=== PATIENT | male | born 1950 | race Caucasian/White ===

== ENCOUNTER → 2024-05-25 13:54 | Outpatient (REF) | payer MEDICARE, SELFPAY | LOC: RAD 13:54 | PROVIDERS: ATTENDING PHYSICIAN Podiatrist Foot & Ankle Surgery | DX: I70.293 Other atherosclerosis of native arteries of extremities, bilateral legs (principal) | CPT/HCPCS: 93922; 93925 ==

== ENCOUNTER 2024-10-17 09:22 | Day surgery (SDC) | payer MEDICARE, SELFPAY ==
[2024-10-17] VITALS (17 sets, daily range): BP systolic 114–157; BP diastolic 29–112; BMI 34.3
[2024-10-17 09:54] LABS: Hematocrit 46.4 % (39.0-52.0); Hemoglobin 15.4 g/dL (13.0-18.0); Mean Corp Hgb Conc. 33.2 g/dL (33.0-37.0); Mean Corpuscular Hgb 30.1 pg (27.0-31.0); Mean Corpuscular Volume 90.6 fL (80.0-94.0); Mean Platelet Volume 9.7 fL (7.4-10.4); Platelet Count 242 10^3/uL (130-400); Red Blood Cell Count 5.12 10^6/uL (4.70-6.10); Red Cell Dist. Width 12.7 % (11.5-14.5); White Blood Cell Count 11.4 10^3/uL (4.8-10.8)
[2024-10-17 10:01] LABS: INR 0.96; PT 13.3 Sec (11.4-14.6)
[2024-10-17 10:02] LABS: APTT 26.3 Sec (23.4-35.0)
[2024-10-17 10:08] LABS: Blood Urea Nitrogen 15 mg/dl (9-20); Calcium 9.3 mg/dl (8.4-10.2); Carbon Dioxide 29 mmol/L (22-30); Chloride 96 mmol/L (98-107); Estimated Creatinine Clearance 69 ml/min; Glucose 234 mg/dl (70-99); Potassium 4.9 mmol/L (3.5-5.1); Sodium 136 mmol/L (135-145); eGFR > 60.00
[2024-10-17 10:32] LABS: Glucose - Point of Care 216 mg/dl (70-99)
[2024-10-17] MEDS: NSS 500 IV ×2 (10:40→15:28)
--- NOTE | 2024-10-17 11:30 | W.SUR.PREOP ---
Pre-Operative Surgical Note
-
I have examined this patient prior to the performance of the scheduled procedure.
The patient's condition is unchanged from the time of the current History and
Physical and the patient is able to undergo the scheduled procedure.
--- NOTE | 2024-10-17 12:43 | W.SUR.POST ---
Surgical Immediate Post Op
Note
Pre Op Diagnosis: PAD
Post Op Diagnosis: Same
Procedure Performed: Left lower extremity diagnostic arteriogram
Primary Surgeon: Ranjit
Anesthesia: Local and sedation
Estimated Blood Loss: Less than 2 cc
Fluids: See anesthesia flowsheet
Drains/Shunts: None
Specimens/Cultures: None
Doppler/Duplex/Angio (Y/N): Y
Complications: None
Operative Findings: Distal small vessel disease
[2024-10-17 12:59] LABS: Glucose - Point of Care 168 mg/dl (70-99)
--- NOTE | 2024-10-17 13:35 | OR.RPT ---
Operative Report
Operative Report
PROCEDURE DATE: 10/17/2024
Preoperative diagnosis: Chronic limb threatening ischemia with tissue loss left first toe.
Postoperative diagnosis: Same
Procedure:
1. Duplex assisted right common femoral artery cannulation.
2. Aortogram and pelvic angiogram.
3. Left lower extremity arteriogram with third order vessel catheterization of left superficial femoral artery via right common femoral artery puncture.
4. Right femoral angiogram with Grijalva Perclose percutaneous suture closure right common femoral artery.
5. Supervision and interpretation.
Surgeon: Ranjit
Steel Post Installer: None
Complications: None
Anesthesia: Local, sedation
Fluoroscopy:
2.1 min
23 mGy
5.24 Gy.cm2
Indications for procedure:
Left first toe dorsum ulcer nonhealing. Known history of PAD. Brought for angiography. Risk/benefits/alternatives all fully discussed. Patient understood all wished proceed.
Description of procedure:
Patient was identified, brought to the operating room. Placed on the table in the supine position. After the adequate administration of anesthesia, the patient was prepped and draped in the standard surgical fashion. A standard preoperative
timeout was undertaken and everybody was in agreement with the plan.
The right common femoral artery was accessed with a micropuncture kit under direct duplex ultrasound guidance. A 5 Afghan sheath was then advanced over a 0.035 inch wire, and a ansari's hook catheter was advanced into the abdominal aorta.
Aortogram and pelvic angiogram was obtained. Findings as follows:
Infrarenal aorta: Patent with no significant stenosis
Right common iliac artery: Patent with no significant stenosis
Right external iliac artery:Patent with no significant stenosis
Left common iliac artery:Patent with no significant stenosis
Left external iliac artery:Patent with no significant stenosis
Using a floppy angled hydrophilic wire, the left common femoral artery was cannulated and the catheter was advanced. Left lower extremity arteriogram was obtained. Findings as follows:
Common femoral artery: Patent with no significant stenosis.
Profunda femoris artery: Patent with no significant stenosis.
Superficial femoral artery: Patent with no significant stenosis throughout its course, though eccentric plaque noted throughout (leadpipe like plaque).\\
At this point the left superficial femoral artery was cannulated with a flopping of hydrophilic wire and catheter advanced over the wire. Completion of the left lower extremity arteriogram was then obtained. Findings as follows:
Popliteal artery: Patent with eccentric plaque, but no significant stenosis identified.
Anterior tibial artery: Patent with no significant stenosis. Diffuse calcified plaque disease more distally resulting in smaller size of the artery but no definitive focal stenosis. The artery then occluded once across the ankle onto the foot.
Small collaterals could be seen but no filling into the arch.
Tibial peroneal trunk: Patent with no significant stenosis.
Peroneal artery: Patent for about 2 to 3 cm and then slowly tapering and diminutive down to the level of the ankle.
Posterior tibial artery: Patent with no significant stenosis though heavy calcified plaque in the mid to distal third with no formal stenosis identified but tortuosity. Once on the foot, there is no filling of the plantar arteries the artery
occluded essentially onto the foot. Small collaterals are seen to fill. No filling of the arch of the foot could be seen.
At this point, I felt that there is no endovascular option here for the small vessel disease. Patient will be managed conservatively with close follow-up. If fails to heal, consideration for transcatheter arterialization of the deep veins
(LimFlow) may be entertained using the peroneal artery as the inflow source. At this point wires and catheters were withdrawn. Right femoral angiogram was performed through the sheath that demonstrated good puncture in the right common femoral
artery. An [employer] percutaneous suture delivery device was then inserted over the wire after exchanging out the 5 Afghan sheath and the suture was deployed in the standard fashion. Manual pressure was also gently applied. Hemostasis was
fully achieved.
The patient tolerated procedure well.
== END 2024-10-17 16:01 | disposition home or self-care (01) ==
LOC: CATH 09:22
PROVIDERS: ATTENDING PHYSICIAN Surgery Vascular Surgery; PRIMARYCARE PHYSICIAN Family Medicine
DX: I70.245 Atherosclerosis of native arteries of left leg with ulceration of other part of foot (principal); L97.529 Non-pressure chronic ulcer of other part of left foot with unspecified severity; Z79.82 Long term (current) use of aspirin; Z79.02 Long term (current) use of antithrombotics/antiplatelets; Z79.4 Long term (current) use of insulin; Z79.899 Other long term (current) drug therapy; Z79.84 Long term (current) use of oral hypoglycemic drugs; E11.9 Type 2 diabetes mellitus without complications; I10 Essential (primary) hypertension; Z87.891 Personal history of nicotine dependence
CPT/HCPCS: 36247; 75716; 75625; 80048; 82962; 85027; 85610; 85730; 86850; 86900; 86901; 93005; C1760; C1769; C1894; Q9967

== ENCOUNTER → 2024-11-08 11:06 | Outpatient (REF) | payer MEDICARE, SELFPAY | LOC: RAD 11:06 | PROVIDERS: ATTENDING PHYSICIAN Physician Assistant; FAMILY PHYSICIAN Family Medicine; REFERRING PHYSICIAN Surgery Vascular Surgery | DX: Z01.810 Encounter for preprocedural cardiovascular examination (principal); Z01.818 Encounter for other preprocedural examination; I73.9 Peripheral vascular disease, unspecified | CPT/HCPCS: 93922; 93926; 93971 ==

== ENCOUNTER 2025-05-07 18:43 | Inpatient (IN) | payer MEDICARE, SELFPAY ==
[2025-05-07 14:18] VITALS: BP 122/70
[2025-05-07 14:48] LABS: Hematocrit 40.6 % (39.0-52.0); Hemoglobin 13.9 g/dL (13.0-18.0); Mean Corp Hgb Conc. 34.2 g/dL (33.0-37.0); Mean Corpuscular Volume 89.0 fL (80.0-94.0); Platelet Count 379 10^3/uL (130-400); Red Cell Dist. Width 13.0 % (11.5-14.5)
[2025-05-07 14:53] LABS: ALT (SGPT) 31 U/L (0-50); AST (SGOT) 30 U/L (17-59); Albumin 4.1 g/dl (3.5-5.0); Alkaline Phosphatase 127 U/L (38-126); Blood Urea Nitrogen 24 mg/dl (9-20); Calcium 8.8 mg/dl (8.4-10.2); Carbon Dioxide 25 mmol/L (22-30); Chloride 94 mmol/L (98-107); Glucose 200 mg/dl (70-99); Potassium 4.1 mmol/L (3.5-5.1); Sodium 131 mmol/L (135-145); Total Protein 8.0 g/dl (6.3-8.2); eGFR > 60.00
[2025-05-07 15:14] LABS: Nucleated Red Blood Cells % 0 % (-)
--- NOTE | 2025-05-07 16:14 | ED.GENMED ---
History of Present Illness
General
Chief Complaint: Skin Problem
Source: patient
Exam Limitations: none
Time Seen by Provider: 05/07/25 16:11
Nursing documentation reviewed up to this point in time: agreed with
History of Present Illness
History of Present Illness:
Patient is a 74-year-old male with past medical history of vascular disease, right lower extremity amputation, hypertension peripheral arterial disease, diabetes, recent ME ([facility] hosp one month ago) on Eliquis and Plavix presents to the ER for
evaluation. Patient was sent by Dr. Lainez(plan for admission, IV antibiotics podiatry consult and OR for limb flow procedure
Patient reports blood blister to his left great toe for several months however has had recent increasing redness swelling and pain.
denies any fever chills.
Phy Exam
General Physical Exam
General Presentation: no apparent distress
General age: appears stated age
General Skin: warm and dry
General Habitus: elderly
General Mental: alert
General Hydration: appears well hydrated
Cardiovascular Exam
Cardiovascular Exam: regular rate/rhythm, no murmur and normal peripheral pulses
Pulmonary Exam
Pulmonary Exam: lungs clear and no respiratory distress
Neurological Exam
Neurological Exam: alert and oriented x3
Musculoskeletal Exam
Musculoskeletal Exam: other (Left lower extremity pulses by Doppler, left great toe with open wound to distal toe with surrounding erythema swelling swelling redness extends the dorsal foot wound with purulent, blackish discoloration /questionable
necrosis)
Skin Exam
Skin Exam: normal color and warm/dry
Psychiatric Exam
Psychiatric Exam: normal mood/affect
Course
Orders/Labs/Results
Orders:
Orders
05/07/25 14:25
CMP [Comprehensive Metabolic Panel] Urgent
Complete Blood Count/With Diff Urgent
05/07/25 16:22
Foot, Left 3 View [CR Foot - Left Min 3 Views] Urgent
Comment:
Reason For Exam: infection to great toe/foot
05/07/25 16:51
Lactic Acid Q4H
Comment: CANCEL 2nd LACTIC ACID IF 1st LACTIC ACID IS LESS THAN 2
Blood Culture Q30M
HANS Source: Blood/Venous
Specimen Description:
Wound Culture [Wound/Abscess/Other Culture] Urgent
HANS Source: Toe
Specimen Description:
Date Specimen was Collected: 05/07/25
Time Specimen was Collected: 16:39
05/07/25 16:54
Blood Culture Q30M
HANS Source: Blood/Venous
Specimen Description:
05/07/25 16:56
Piperacillin/Tazo 3.375 Gram [Zosyn] 3.375 gram in 50 ml IV NOW
05/07/25 16:57
Morphine Sulfate 4 mg IV NOW STA
05/07/25 16:58
0.9% Sodium Chloride 1000 ml [Nss] 1,000 ml IV BOLUS
05/07/25 17:19
Vancomycin [Vancocin] 2,000 mg 0.9% Sodium Chloride 500 ml [Nss] 500 ml IV NOW
05/07/25 18:11
Admit/Transfer Patient As Directed
Co-Sign Provider:
Level of Care: Inpatient admission
Assign to:: Medical/Surgical
Physician / Group: [email or web address]
Diagnosis: Infected left great toe with surrounding foot/toe swelling. Severe PAD
Reason for Hospitalization: Infected left great toe with surrounding foot/toe swelling.
Severe distal small vessel obliterative PAD
Expected length of stay greater than two midnights?: Yes
ELOS- Estimated Length of Stay in days: 5
I certify the patient meets the requirements for IP care: Yes
05/07/25 18:14
Code Status As Directed
Resuscitation Status: Full Code
05/07/25 20:30
Lactic Acid Q4H
Comment: CANCEL 2nd LACTIC ACID IF 1st LACTIC ACID IS LESS THAN 2
Abnormal Lab Results
05/07/25
14:25
WBC 29.6 H 10^3/uL
(4.8-10.8)
RBC 4.56 L 10^6/uL
(4.70-6.10)
Abs Immat Gran (auto) 0.2 H 10^3/uL
(0-0.05)
Absolute Neuts (auto) 25.0 H 10^3/uL
(1.4-6.5)
Absolute Monos (auto) 2.3 H 10^3/uL
(0.1-0.6)
Immature Gran % 0.7 H %
(0-0.5)
Neutrophils % 84.4 H %
(42.2-75.2)
Lymphocytes % 6.6 L %
(20.5-51.1)
Sodium 131 L mmol/L
(135-145)
Chloride 94 L mmol/L
(98-107)
BUN 24 H mg/dl
(9-20)
Glucose 200 H mg/dl
(70-99)
Alkaline Phosphatase 127 H U/L
(38-126)
05/07/25 14:25
05/07/25 14:25
Vital Signs
Initial and Last Documented VS:
Initial Vital Signs
Temp Pulse Resp BP Pulse Ox
97.9 F 103 20 122/70 94
05/07/25 14:18 05/07/25 14:18 05/07/25 14:18 05/07/25 14:18 05/07/25 14:18
Last Documented Vital Signs
Temp Pulse Resp BP Pulse Ox
99.3 F 87 20 131/65 94
05/07/25 19:27 05/07/25 19:27 05/07/25 19:27 05/07/25 19:27 05/07/25 16:17
MDM/Problems Addressed
Differential Diagnosis Includes:
Not limited to cellulitis osteomyelitis sepsis
MDM/Problems Addressed:
As documented patient is a 74-year-old male sent by Dr. Lainez vascular surgery for admission for infection to left great toe. He has obvious infected open wound to the left great toe with surrounding erythema. He is nontoxic however his white count
is elevated at 29,000 with a negative lactic, temperature 99.3 with stable vital signs. Vital signs stable. IV antibiotics, Zosyn vancomycin ordered. I Did review with podiatry Dr. Davis. Patient is on Eliquis/Plavix reports recent ME 1 month
ago at [facility]. This will need to be stopped. Dr. Lainez also planning on doing limb flow procedure on .
Patient was evaluated by podiatry here Dr Rosey Blackwell.
X-ray concerning for possible cortical lucency at the tip of the distal phalanx suspicious for osteomyelitis
Patient is nontachycardic low-grade temperature negative lactic given 1 L fluids blood sugar elevated at 200
Chronic conditions affecting care:
Diabetes, on anticoagulation for history of recent ME previous amputation
*Radiology
Radiology exam reviewed: radiology read reviewed
*Pulse Oximetry
SaO2: 94
Oxygen Mode of Delivery: Room air
Patient hypoxic: no
*Critical Care Note
Total Time (30-74mins, 75-104mins- exclusive of procedures): Not Applicable
Patient Management
Discussion with other providers: [facility] (DR Davis )
ED Attending Note
-
Portions of this chart may have been created with voice recognition software.� Occasional wrong word or��sound alike� substitutions may have occurred due to the inherent limitations of voice recognition software.
Discharge Plan
Departure
Patient Disposition: Admit
Date of Disposition: 05/07/25
Time of Disposition: 17:45
Admit to: Med/Surg
Admit to doctor: hospitalist
Presentation/result/management discussed w/ accepting MD/DO: Hospitalist
Patient with high blood pressure during this ER visit?: No
Condition: Fair
Covid-19: Not Applicable
Discharge Problem:
left great toe infection , Osteomyelitis left great toe, Cellulitis left foot
Interventions
Interventions:
*Risk Screen - Suicide Last Done: 05/07/25 14:18
*General Assessment Last Done: 05/07/25 14:18
*Neglect/Abuse Screening Last Done: 05/07/25 18:00
*ED- Fall Risk Assessment Last Done: 05/07/25 18:00
ED-Skin Assessment Last Done: 05/07/25 18:00
--- NOTE | 2025-05-07 17:08 | W.PN.UPDATE ---
Update Note
Progress Note Update
Vascular Surgery consultation note below:
Plan:
Admit to hospitalist
IV antibiotics
Infectious disease consult
Podiatry consult
Plan for OR for Limflow procedure
[2025-05-07 17:19] VITALS: BMI 33.1
[2025-05-07] MEDS: NSS 1000 IV ×2 (17:21→20:42)
[2025-05-07] MEDS: MORPHINE SULFATE 4 MG IV (17:23)
[2025-05-07] MEDS: ZOSYN 50 IV ×2 (17:24→23:02)
--- NOTE | 2025-05-07 18:06 | HPS.HSE ---
Family Physician
-
Family Physician: Toni Wood
Chief Complaint
-
sent in from vascular office
History of Present Illness
HPI
74M HX DMT2, Severe distal small vessel obliterative PAD, R BKA, HTN, HX MII (ST [facility] )on Eliquis and Plavix seen at ER:
- Patient was sent by Dr. Church.
- reports blood blister to his left great toe for several months however has had recent increasing redness swelling and pain. - seen by Dr. Church today and sent to the ER for IV antibiotics and admission patient denies any fever chills.
Medical History
Past Medical History
Past Medical History: Reports HTN, Hypercholesterolemia and NIDDM
Additional Past Medical History:
PAD
Past Surgical History: Reports None
Social History
Tobacco: Non-smoker
Alcohol: None
Drug: None
Personal:
Living: With Family
Family History
Family History: Not pertinent
Allergies / Home Medications
Allergies reflects when Allergies were last updated in [employer].
Home Medications with original date entered in [employer]
Allergy/Medication List:
Allergies
Allergy/AdvReac Type Severity Reaction Status Date / Time
No Known Allergies Allergy Verified 01/06/23 09:16
Home Medications
aspirin 81 mg tablet,delayed release 81 mg PO QPM 01/06/23
atenolol 100 mg tablet 100 mg PO QPM 01/06/23
atorvastatin 80 mg tablet (Lipitor) 80 mg PO QPM 01/06/23
cholecalciferol (vitamin D3) 25 mcg (1,000 unit) capsule (Vitamin D3) 25 mcg PO QPM 01/06/23
clopidogrel 75 mg tablet 75 mg PO DAILY 01/06/23
duloxetine 60 mg capsule,delayed release (Cymbalta) 60 mg PO DAILY 01/06/23
empagliflozin 25 mg tablet 25 mg PO QPM 01/06/23
gabapentin 100 mg capsule 100 mg PO TID 01/06/23
insulin aspart U-100 100 unit/mL subcutaneous solution 20 unit SC BID@0800,1700 01/06/23
insulin detemir U-100 100 unit/mL subcutaneous solution 40 unit SC AMHS 01/06/23
lisinopril 20 mg-hydrochlorothiazide 25 mg tablet 1 tab PO DAILY 01/06/23
metformin 500 mg tablet,extended release 24 hr 1,000 mg PO BID@0800,1700 01/06/23
pentoxifylline 400 mg tablet,extended release 400 mg PO TID 01/06/23
zinc 50 mg capsule 50 mg PO QPM 01/06/23
Review of Systems
-
Constitutional: Reports No Symptoms
EENT: Reports No Symptoms
Respiratory: Reports No Symptoms
Cardiac: Reports No Symptoms
Abdomen/GI: Reports No Symptoms
: Reports No Symptoms
Musculoskeletal: Reports Other (Lt BKA )
Skin: Reports See HPI (Rt Great toe infection )
Neurological: Reports No Symptoms
Endocrine: Reports No Symptoms
Hematologic/Lymphatic: Reports No Symptoms
Psych: Reports No Symptoms
Physical Exam
Vital Signs
Vital Signs
Temp Pulse Resp BP Pulse Ox
97.9 F 103 20 122/70 94
05/07/25 14:18 05/07/25 14:18 05/07/25 14:18 05/07/25 14:18 05/07/25 16:17
Physical Exam
General: Well Developed, Well Nourished, No Apparent Distress and Comfortable
HEENT: NormoCephalic, Anicteric and Moist mucous membranes
Respiratory: Clear
Cardiac: S1/S2 and Regular Rhythm
GI: Soft, Non Tender and Non Distended
Genito-urinary: Deferred by me
Skin: Warm, Dry and Other (Infected left great toe)
Neuro: AO x 3
Hematologic/Lymphatic: No Lymphadenopathy
Psych: Calm
Laboratory Results
-
05/07/25 14:25
05/07/25 14:25
Laboratory Results
Lactic Acid 1.5 mmol/L (0.7-2.0) 05/07/25 16:51
Total Bilirubin 1.2 mg/dl (0.2-1.3) 05/07/25 14:25
AST 30 U/L (17-59) 05/07/25 14:25
ALT 31 U/L (0-50) 05/07/25 14:25
Alkaline Phosphatase 127 U/L (38-126) H 05/07/25 14:25
Data Reviewed
-
Diagnostic Radiology: Image Personally Visualized and interpreted
Lab Data: Labs Reviewed by me
Old Records: Reviewed
Impression/Plan
-
Vital Signs
Temp Pulse Resp BP Pulse Ox
97.9 F 103 20 122/70 94
05/07/25 14:18 05/07/25 14:18 05/07/25 14:18 05/07/25 14:18 05/07/25 16:17
Abnormal Lab Results
05/07/25
14:25
WBC 29.6 H
RBC 4.56 L
Abs Immat Gran (auto) 0.2 H
Absolute Neuts (auto) 25.0 H
Absolute Monos (auto) 2.3 H
Immature Gran % 0.7 H
Neutrophils % 84.4 H
Lymphocytes % 6.6 L
Sodium 131 L
Chloride 94 L
BUN 24 H
Glucose 200 H
Alkaline Phosphatase 127 H
Foot XR report pending
Relevant data�
Wd Cx sent
BCx sent
Last DH admission: vascualr service
10/17/2024 DX: : Chronic limb threatening ischemia with tissue loss left first toe.
Procedure:
1. Duplex assisted right common femoral artery cannulation.
2. Aortogram and pelvic angiogram.
3. Left lower extremity arteriogram with third order vessel catheterization of left superficial femoral artery via right common femoral artery puncture.
4. Right femoral angiogram with Grijalva Perclose percutaneous suture closure right common femoral artery.
Hospitalist admission: DATE OF ADMISSION: 01/06/2023 - DATE OF DISCHARGE: 01/17/2023
DISCHARGE DIAGNOSES:
1. Subacute right heel osteomyelitis with gangrene.
2. Severe distal small vessel obliterative peripheral arterial disease.
3. Acute anemia, multifactorial.
4. Acute kidney injury.
5. Lactic acidosis.
6. Hyperkalemia.
7. Hyponatremia.
8. Renal insufficiency.
ASSESSMENT & PLAN
Infected left great toe with surrounding foot/toe swelling.
Severe distal small vessel obliterative PAD
HX R BKA 01/13/2023 ( Dr Church)
- BCx sent
- IV Vanco and Zosyn
- Hold Plavix / eliquis pending procedure
- NPO after MN
- Supervisor [employer] consulted
- Vascular consult
Mild hyponatremia - pseudohyponatremia due to hyperglycemia
- Trend Na in AM
DM2 without hyperglycemia
Last A1C 8.3%.
- ISSlow
- on Levemir
- Hold aspart 10 units AC 3 times daily.
- Hold metformin
- Hold empagliflozin
Essential hypertension
-controlled.
Hyperlipidemia
- continue atorvastatin.
Obesity due to excess calories
DVT Px: SQH
Full code
IP MS
--- NOTE | 2025-05-07 18:24 | W.PN.UPDATE ---
Update Note
Progress Note Update
74M with prior RLE BKA with Left hallux infection
- tentative plan for OR tomorrow, NPO tonight, will discuss with vascular
- continue abx
- NWB LLE
[2025-05-07 19:27] VITALS: BP 131/65
[2025-05-07] MEDS: VANCOCIN 540 MG IV (19:30)
[2025-05-07 20:19] VITALS: BP 149/76; BMI 32.8
[2025-05-07] MEDS: HEPARIN 5000 UNITS SC (20:43)
[2025-05-07] MEDS: LIPITOR 80 MG PO (20:43)
[2025-05-07 20:48] LABS: Glucose - Point of Care 147 mg/dl (70-99)
[2025-05-07] MEDS: NEURONTIN 300 MG PO (21:01)
--- NOTE | 2025-05-07 21:21 | PHA.VAN.IN ---
Assessment
- Assessment
Renal Function: Appears similar to baseline
Concomitant Antimicrobials: ZOSYN
AUC Dosing Plan
- Dosing Variables
Dosing Weight (kg): 103.6
Dosing CrCl (ml/min): 70
Vd coefficient (L/kg): 0.7
- Empiric Dosing
Initial / Loading Dose: 2000 MG ~ 1930
Maintenance Regimen: 1000 MG IV Q12H
Estimated AUC (mcg*h/mL): 455
Estimated Peak (mcg*h/mL): 26.1
Estimated Trough (mcg/ml): 13.1
Estimated Half Life (H): 11.1
- Monitoring
No levels ordered at this time: Consider levels in next few days
Pharmacokinetics Vancomycin I
- -
Patient Age: 74
Patient Sex: Male
Vancomycin Day #: 1
Indication: Skin And Soft Tissue
Requesting Provider: Dr Jose Enriquez
Height / Weight:
Height 5 ft 10 in
Actual Weight 103.589 kg
Pertinent Past Medical History: right lower extremity amputation, diabetes
- Vital Signs / Lab Results
Temp Pulse Resp BP Pulse Ox
98.3 F 95 18 149/76 96
05/07/25 20:19 05/07/25 20:19 05/07/25 20:19 05/07/25 20:19 05/07/25 20:19
Lab Results - Hematology
05/07/25
14:25
WBC 29.6 H
Lab Results - Chemistry
05/07/25
14:25
BUN 24 H
Creatinine 1.1
Albumin 4.1
05/07/25 05/07/25
16:51 20:30
Lactic Acid 1.5 Cancelled
Microbiology Results
05/07/25 16:51 Gram Stain - Preliminary
Toe
[2025-05-07] MEDS: TYLENOL 650 MG PO (21:44)
[2025-05-07 23:25] VITALS: BP 94/59
[2025-05-08] VITALS (15 sets, daily range): BP systolic 97–135; BP diastolic 53–67; PULSE 78
--- NOTE | 2025-05-08 03:03 | DOWNTIME ---
There was a [employer] President Of [employer] Downtime on 05/08/2025 from 0100 to 05/08/2025 at 0235. Downtime documentation of patient's care, including medication administrations, has been reconciled in the electronic record per guidelines. Refer to the
patient's paper chart under the miscellaneous tab to see printed paper medication records and downtime forms.
[2025-05-08] MEDS: ZOSYN 50 IV ×3 (05:27→17:50)
[2025-05-08] MEDS: TYLENOL 650 MG PO (05:38)
[2025-05-08 05:40] LABS: Glucose - Point of Care 130 mg/dl (70-99)
[2025-05-08 07:33] LABS: Hematocrit 35.7 % (39.0-52.0); Hemoglobin 11.9 g/dL (13.0-18.0); Mean Corp Hgb Conc. 33.3 g/dL (33.0-37.0); Mean Corpuscular Volume 91.3 fL (80.0-94.0); Platelet Count 298 10^3/uL (130-400); Red Cell Dist. Width 13.1 % (11.5-14.5)
[2025-05-08 07:59] LABS: Blood Urea Nitrogen 20 mg/dl (9-20); Calcium 8.0 mg/dl (8.4-10.2); Carbon Dioxide 25 mmol/L (22-30); Chloride 98 mmol/L (98-107); Estimated Creatinine Clearance 77 ml/min; Glucose 84 mg/dl (70-99); Potassium 3.6 mmol/L (3.5-5.1); Sodium 133 mmol/L (135-145); eGFR > 60.00
[2025-05-08] MEDS: VANCOCIN 200 IV ×2 (08:15→18:30)
[2025-05-08] MEDS: CYMBALTA DELAYED RELEASE 60 MG PO (08:19)
[2025-05-08] MEDS: HEPARIN 5000 UNITS SC ×2 (08:19→19:48)
[2025-05-08] MEDS: NEURONTIN 300 MG PO ×3 (08:19→21:55)
[2025-05-08 08:26] LABS: Glucose - Point of Care 86 mg/dl (70-99)
--- NOTE | 2025-05-08 08:30 | W.PN.HOSP.TC ---
Today's Communication/Plan
-
Continue IV Vanco/Zosyn
Pending left great toe amputation
Continue Lantus 50 units daily, high dose SSI, midodrine
Assessment / Plan
Assessment / Plan
This is a 74-year-old male with a past medical history of type 2 diabetes mellitus, severe distal small vessel obliterative PAD, right BKA, hypertension who presented to the ED with gangrene of the left great toe. Patient states that he had a
blister to the left great toe for several months, and has been increasing in size swelling and pain since. He was seen by vascular surgery Dr. Church today and was sent to the ER for IV antibiotics and possible admission. Patient denies fever, chills
or any other symptoms.
XR left foot: Some suspected cortical lucency at least along the distal tip of the distal phalanx of left great toe, mildly suspicious for osteomyelitis.
Assessment/plan:
# Left great toe infection
# History of severe distal small vessel obliterative PAD
# History of right BKA/ by Dr. Church
� Visible dry gangrene around the area with surrounding swelling
� Continue IV vancomycin and Zosyn
� Follow-up blood cultures
� Vascular surgery and podiatry consulted.
� Hold Plavix and Eliquis pending left great toe amputation.
# Type 2 diabetes mellitus
�Continue Lantus 50 units
�Insulin sliding scale high-dose
�HbA1c 8.4 today 05/08/25
# Chronic hypotension
� Continue midodrine 5 Mg p.o. daily
# Hyperlipidemia
� Continue statin
# Mild hyponatremia
�133 today 05/08/2025, will continue to trend BMP
#Obesity due to excess calories
DVT prophylaxis: Heparin
CODE STATUS: Full
Anticipated Discharge: > 48 hours
Subjective/Interval History
-
Date of Service: May 08, 2025
Patient states he has no new symptoms. He takes midodrine at home for orthostatic hypotension-his last syncopal episode due to orthostatic hypotension was 1 month ago.
Objective Data
-
Labs:
Laboratory Results
05/08/25
06:07
WBC 18.5 H
Hgb 11.9 L
Hct 35.7 L
Plt Count 298 D
Sodium 133 L
Potassium 3.6
Chloride 98
Carbon Dioxide 25
BUN 20
Creatinine 1.0
Glucose 84
Calcium 8.0 L
Vital Signs:
Vital Signs
Temp Pulse Resp BP Pulse Ox
98.2 F 75 12 133/100 96
05/08/25 07:00 05/08/25 07:00 05/08/25 07:00 05/08/25 09:08 05/08/25 08:00
I&O
05/07/25 05/08/25 05/09/25
06:59 06:59 06:59
Intake Total 480 / 480
Output Total 1460 / 1460
Balance -980 / -980
Review of Systems
-
History Source: Patient
Constitutional: Reports No Symptoms
EENT: Reports No Symptoms Reported
Respiratory: Reports No Symptoms
Cardiac: Reports No Symptoms
Abdomen/GI: Reports No Symptoms
Breast: Reports No Symptoms
Genitourinary: Reports No Symptoms
Skin: Reports Other (Ulcer)
Endocrine: Reports No Symptoms
Hematologic / Lymphatic: Reports No Symptoms
Physical Exam
-
General: Well Developed, Well Nourished, No Apparent Distress, Comfortable and Conversant
HEENT: Normocephalic, Atraumatic, Moist Mucous Membranes and Anicteric
Respiratory: Clear to Auscultation
Cardiac: Regular Rhythm and S1/S2
GI: Soft, Nontender, Nondistended, Normal Bowel Sounds and No Hepatosplenomegaly
Musculoskeletal: Other
Skin: Ulcers (Gangrenous ulcer on left great toe)
Neuro: Awake and AO x 3
Psych: Calm
Data Reviewed
-
Diagnostic Radiology: Report Reviewed by me and Discussed with Physician
Labs: Labs Reviewed by me and Discussed with Physician
Old Records: Reviewed
--- NOTE | 2025-05-08 08:57 | W.PN.UPDATE ---
Update Note
Progress Note Update
I saw and evaluated the patient. I reviewed the resident�s note and agree with findings and plan as documented in the resident�s note.
No acute complaints.
Gen: NAD, AAOx3.
Eyes: EOMI, PERRLA, no scleral icterus.
Neck: supple.
CV: RRR, +S1/S2, no m/r/g.
Resp: CTAB, no rales, wheezes, or rhonchi.
Abd: +BS, soft, NT, ND
Skin: No rashes. Necrosis/dry gangrene of L 1st toe.
Neuro: CN 2-12 intact, non-focal.
Psych: Normal mood and affect.
L foot Xray: Some suspected cortical lucency at least along the distal tip of the distal phalanx of left great toe, at least suspicious for osteomyelitis.
Infected L great toe:
-with surrounding foot/toe swelling
-underlying severe distal small vessel obliterative PAD
-h/o R BKA 01/13/2023 (Dr Church)
-follow BCx
-cont IV Vanco/Zosyn
-holding Plavix/Eliquis pending L great toe amputation by podiatry
-vascular c/s
DM2:
-cont Lantus 50U daily
-high-res SSI
-check a1c
Other problems:
Mild hyponatremia
Chronic hypotension: cont Midodrine
HLD: cont statin
Obesity due to excess calories
FULL/Heparin
[2025-05-08] MEDS: LANTUS 0.5 UNITS SC (09:09)
[2025-05-08 09:26] LABS: Glycohemoglobin (HgbA1c) 8.4 % (4.0-5.6)
--- NOTE | 2025-05-08 10:13 | PHA.VAN.FU ---
Addendum entered and electronically signed by Jenifer Patterson [facility] 05/08/25 10:17:
Agree with assessment and plan
Original Note:
Vancomycin Assessment / Plan
- Assessment
Renal Function: Stable
WBC's are: Trending Down
In the past 24 hrs, patient has been: Afebrile
Concomitant Antimicrobials: piperacillin/tazobactam
- Dosing Plan
Continue: 1000mg q12h
- Monitoring Plan
No level(s) ordered at this time: consider within next few days as pt approaches steady state
- Follow Up
Pharmacy will continue to follow.
Vancomycin Follow UP
- -
Patient Age: 74
Patient Sex: Male
Vancomycin Day #: 2
Indication: Skin And Soft Tissue
Requesting Provider: Dr Jose Enriquez
Height / Weight:
Height 5 ft 10 in
Actual Weight 103.589 kg
Pertinent Past Medical History: right lower extremity amputation, diabetes
- Vital Signs / Lab Results
Temp Pulse Resp BP Pulse Ox
98.2 F 75 12 133/100 96
05/08/25 07:00 05/08/25 07:00 05/08/25 07:00 05/08/25 09:08 05/08/25 07:00
Lab Results - Hematology
05/07/25 05/08/25
14:25 06:07
WBC 29.6 H 18.5 H
Lab Results - Chemistry
05/07/25 05/08/25
14:25 06:07
BUN 24 H 20
Creatinine 1.1 1.0
Estimated Creat Clear 77
Albumin 4.1
05/07/25 05/07/25
16:51 20:30
Lactic Acid 1.5 Cancelled
Microbiology Results
05/07/25 16:51 Gram Stain - Preliminary
Toe
[2025-05-08] MEDS: LANOXIN 125 MCG PO (11:36)
--- NOTE | 2025-05-08 11:37 | CM ---
Alert awake oriented patient who lives alone in a one story home with stair glide to enter. Pt does not drive . Friends/ dgt give him rides.Pt uses cane . He said he is independent at home.
Had hx of VNA in [place] and Hx of H[place]josa
Pharmacy [facility] [facility]
PCP Dr Wood
PLAN Will need PT OT evals when appropriate for dc planing.
[2025-05-08 12:15] LABS: Glucose - Point of Care 81 mg/dl (70-99)
[2025-05-08] MEDS: NSS 1000 IV (14:12)
--- NOTE | 2025-05-08 17:21 | W.PN.UPDATE ---
Update Note
Progress Note Update
74 M s/p L open hallux amputation, application of NPWT
- NWB LLE
- NPWT run continuous @125mmHg, will plan to change Tuesday
- dressings remian C/D/I
- continue abx
[2025-05-08 17:42] LABS: Glucose - Point of Care 69 mg/dl (70-99)
[2025-05-08 18:01] LABS: Glucose - Point of Care 89 mg/dl (70-99)
--- NOTE | 2025-05-08 18:28 | PTCARENOTE ---
pt arrived from OR in [id number] at 1815. VSS, wound vac in place at negative 125mmHg. pt c/o 4/10 pain in L foot. L foot is wrapped, CDI. pt drowsy, but arousable. will continue to monitor.
[2025-05-08 18:33] LABS: Glucose - Point of Care 101 mg/dl (70-99)
[2025-05-08] MEDS: ROXICODONE 5 MG PO (19:48)
[2025-05-08] MEDS: LIPITOR 80 MG PO (21:55)
--- NOTE | 2025-05-08 22:25 | CON.SURG ---
Surgical Consultation
-
CONSULTING PHYSICIAN: Ty Wolff DPM
DATE/TIME OF REQUEST: 05/07/2025
DATE/TIME OF CONSULTATION: 05/07/2025
SUBJECTIVE/REASON FOR CONSULT: Patient is a 74-year-old male who
presents with a past medical history for type 2 diabetes, severe
distal small vessel obliterative PAD, right below knee amputation
secondary to previous heel wound, hypertension, and HX MII on
Eliquis and Plavix. Patient was sent in by Dr. Church with concern for
cellulitis in the setting of peripheral arterial disease. He was
started on IV antibiotics, and there is plan for OR for
limb flow procedure. He initially noticed a blood blister to the
left hallux about a week ago as a result of putting his prosthetic
shoe on and off. He had noticed it getting worse.
OBJECTIVE: Patient presents with rubra that slightly dissipates on
elevation to the left lower extremity. He has pretibial pain as
well as edema to the hallux and the forefoot. Sensation is absent
distal to malleoli. He has gangrenous changes to the distal tuft of
the hallux and plantar fat pad as well as a wound that probes to
bone, predominantly varus drainage, now is mostly adhered.
RADIOGRAPHIC IMPRESSION:
Agree with radiologist findings. Cortical lucency on the distal
tuft of the hallux of the great toe suspicious for osteomyelitis.
ASSESSMENT: The patient is a 74-year-old male with type 2 diabetes
who presents with gangrenous changes to the left hallux being seen
by Vascular for possible limb flow procedure. Concern for
osteomyelitis of the left hallux with overlying cellulitis.
PLAN: Plan for open left hallux amputation for course control given current infection. Vascular plans for Limflow procedure to follow on 05/09. Continue IV antibiotics and strict offloading.
[2025-05-08 22:34] LABS: Glucose - Point of Care 173 mg/dl (70-99)
[2025-05-09] VITALS (19 sets, daily range): BP systolic 101–135; BP diastolic 51–69
[2025-05-09] MEDS: ZOSYN 50 IV ×3 (00:17→17:21)
--- NOTE | 2025-05-09 00:39 | PTCARENOTE ---
Assumed care of pt from previous nurse. Pt with some discomfort to recent left great toe amp, prn pain medication provided with positive effect. Pt wound vac in place. Pt call zhu is within reach, pt rings leon. will cont to monitor.
[2025-05-09] MEDS: ROXICODONE 5 MG PO ×4 (04:41→19:48)
[2025-05-09 05:59] LABS: Glucose - Point of Care 124 mg/dl (70-99)
[2025-05-09] MEDS: VANCOCIN 200 IV (07:02)
--- NOTE | 2025-05-09 07:14 | W.PN.UPDATE ---
Update Note
Progress Note Update
74 M s/p L open hallux amputation, application of NPWT, doing well this AM, minimal pain
- NWB LLE
- NPWT run continuous @125mmHg, will plan to change Tuesday, please notify if >200cc drainage in cannister in 24 hr period
- dressings remian C/D/I
- continue IV abx
[2025-05-09 07:22] LABS: Hematocrit 32.8 % (39.0-52.0); Hemoglobin 11.1 g/dL (13.0-18.0); Mean Corp Hgb Conc. 33.8 g/dL (33.0-37.0); Mean Corpuscular Volume 88.6 fL (80.0-94.0); Platelet Count 313 10^3/uL (130-400); Red Cell Dist. Width 13.2 % (11.5-14.5)
[2025-05-09] MEDS: NEURONTIN 300 MG PO ×3 (08:16→21:12)
[2025-05-09] MEDS: CYMBALTA DELAYED RELEASE 60 MG PO (08:16)
[2025-05-09] MEDS: HEPARIN 5000 UNITS SC ×2 (08:16→19:47)
[2025-05-09 08:17] LABS: Blood Urea Nitrogen 17 mg/dl (9-20); Calcium 7.7 mg/dl (8.4-10.2); Carbon Dioxide 24 mmol/L (22-30); Chloride 100 mmol/L (98-107); Estimated Creatinine Clearance 70 ml/min; Glucose 124 mg/dl (70-99); Potassium 4.3 mmol/L (3.5-5.1); Sodium 129 mmol/L (135-145); eGFR > 60.00
[2025-05-09] MEDS: LANTUS 0.5 UNITS SC (08:19)
[2025-05-09 08:28] LABS: Glucose - Point of Care 141 mg/dl (70-99)
--- NOTE | 2025-05-09 08:45 | PTOTSP ---
Please order OT for ADL dysfunction as pt lives alone, now NWB, will need SNF placement. Thank you.
--- NOTE | 2025-05-09 08:55 | PHA.VAN.FU ---
Addendum entered and electronically signed by Jenifer Patterson Dandre 05/09/25 09:15:
Agree with assessment and plan
Original Note:
Vancomycin Assessment / Plan
- Assessment
Renal Function: Stable
WBC's are: Trending Down
Concomitant Antimicrobials: piperacillin/tazobactam
- Dosing Plan
Continue: 1000mg q12h
- Monitoring Plan
Peak Level: 05/09 2100
Trough Level: 05/10 0530
- Follow Up
Pharmacy will continue to follow.
Vancomycin Follow UP
- -
Patient Age: 74
Patient Sex: Male
Vancomycin Day #: 3
Indication: Skin And Soft Tissue
Requesting Provider: Dr Jose Enriquez
Height / Weight:
Height 5 ft 10 in
Actual Weight 103.589 kg
Pertinent Past Medical History: right lower extremity amputation, diabetes
- Vital Signs / Lab Results
Temp Pulse Resp BP Pulse Ox
98.3 F 90 16 123/56 90
05/09/25 07:10 05/09/25 08:16 05/09/25 07:10 05/09/25 08:16 05/09/25 07:10
Lab Results - Hematology
05/07/25 05/08/25 05/09/25
14:25 06:07 06:14
WBC 29.6 H 18.5 H 17.3 H
Lab Results - Chemistry
05/07/25 05/08/25 05/09/25
14:25 06:07 06:14
BUN 24 H 20 17
Creatinine 1.1 1.0 1.1
Estimated Creat Clear 77 70
Albumin 4.1
05/07/25 05/07/25
16:51 20:30
Lactic Acid 1.5 Cancelled
Microbiology Results
05/07/25 16:51 Wound Culture - Preliminary
Toe Gram Stain - Preliminary
05/08/25 05:33 MRSA Screen - Final
Nose No Methicillin Resistant Staphylococcus aureus isolated.
05/07/25 16:51 Blood Culture - Preliminary
Blood/Venous No Growth in 24 hours- Final report to follow
05/07/25 16:54 Blood Culture - Preliminary
Blood/Venous No Growth in 24 hours- Final report to follow
--- NOTE | 2025-05-09 09:13 | W.PN.UPDATE ---
Addendum entered and electronically signed by Petros Chen MD 05/09/25 12:30:
Sepsis, POA
Original Note:
Update Note
Progress Note Update
I saw and evaluated the patient. I reviewed the resident�s note and agree with findings and plan as documented in the resident�s note.
Reports L foot pain.
Gen: NAD, AAOx3.
Eyes: EOMI, PERRLA, no scleral icterus.
Neck: supple.
CV: remains RRR, +S1/S2, no m/r/g.
Resp: CTAB anteriorly, no rales, wheezes, or rhonchi.
Abd: +BS, soft, NT, ND
Skin: No rashes. L foot with C/D/I dressing with woudn vac in place
Neuro: CN 2-12 intact, non-focal.
Psych: Normal mood and affect.
05/07/25 16:51 Toe Wound Culture - Preliminary
05/07/25 16:51 Toe Gram Stain - Preliminary
05/08/25 05:33 Nose MRSA Screen - Final
No Methicillin Resistant Staphylococcus aureus isolated.
05/07/25 16:51 Blood/Venous Blood Culture - Preliminary
No Growth in 24 hours- Final report to follow
05/07/25 16:54 Blood/Venous Blood Culture - Preliminary
No Growth in 24 hours- Final report to follow
L foot Xray: Some suspected cortical lucency at least along the distal tip of the distal phalanx of left great toe, at least suspicious for osteomyelitis.
Infected L great toe:
-underlying severe distal small vessel obliterative PAD
-h/o R BKA 01/13/2023 (Dr Church)
-s/p L open hallux amputation, application of NPWT on 05/08/25, for dressing change tomorrow
-BCx NGTD
-cont IV Vanco/Zosyn
-resume Plavix/Eliquis today
-vascular following, for Limflow vs TADV
DM2:
-a1c 8.4%
-cont Lantus 50U daily
-high-res SSI
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
Hypotonic Hyponatremia:
-worsening
-serum osm 274, awaiting UOsm, Scott
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
-currently NPO for vascular procedure (Limflow vs TADV)
Other problems:
Chronic hypotension: cont Midodrine
HLD: cont statin
Obesity due to excess calories
FULL/Heparin
--- NOTE | 2025-05-09 09:14 | W.PN.HOSP.TC ---
Today's Communication/Plan
-
Continue IV Vanco/Zosyn, infectious disease consulted for recs.
DM BAND SINGER consult
Vascular surgery and podiatry following. Likely OR on Tuesday
Assessment / Plan
Assessment / Plan
This is a 74-year-old male with a past medical history of type 2 diabetes mellitus, severe distal small vessel obliterative PAD, right BKA, hypertension who presented to the ED with gangrene of the left great toe. Patient states that he had a
blister to the left great toe for several months, and has been increasing in size swelling and pain since. He was seen by vascular surgery Dr. Church today and was sent to the ER for IV antibiotics and possible admission. Patient denies fever, chills
or any other symptoms.
XR left foot: Some suspected cortical lucency at least along the distal tip of the distal phalanx of left great toe, mildly suspicious for osteomyelitis.
Assessment/plan:
# Left great toe infection
# History of severe distal small vessel obliterative PAD
# History of right BKA/ by Dr. Church
� Visible dry gangrene around the area with surrounding swelling. S/p left open hallux amputation 05/08/24 with application of negative pressure wound therapy- dressing change tomorrow 05/10/25.
� Continue IV vancomycin and Zosyn. Will consult ID for recs.
� Follow blood cultures
� Vascular surgery and following - Limflow vs TADV
� Resume Plavix/Eliquis per podiatry recs.
#Hyponatremia-likely due to SIADH due to pain
�Na 129 on 05/09/2025.
�Serum osmolality 274. Awaiting urine sodium and urine osmolality.
�Patient currently NPO for vascular procedure.
# Type 2 diabetes mellitus
�Continue Lantus 50 units
�Insulin sliding scale high-dose
�HbA1c 8.4 today 05/08/25
� Will consult DM BAND SINGER
# Chronic hypotension
� Continue midodrine 5 Mg p.o. daily
# Hyperlipidemia
� Continue statin
# Mild hyponatremia
�133 today 05/08/2025, will continue to trend BMP
#Obesity due to excess calories
DVT prophylaxis: Heparin
CODE STATUS: Full
Anticipated Discharge: > 48 hours
Subjective/Interval History
-
Date of Service: May 09, 2025
Upon evaluation of patient, patient states he feels well. He has mild to moderate pain at the site of the amputation but states is tolerable. No new complaints including shortness of breath leg pain or chest pain.
Objective Data
-
Labs:
Laboratory Results
05/09/25
06:14
WBC 17.3 H
Hgb 11.1 L
Hct 32.8 L
Plt Count 313
Sodium 129 L
Potassium 4.3
Chloride 100
Carbon Dioxide 24
BUN 17
Creatinine 1.1
Glucose 124 H
Calcium 7.7 L
Vital Signs:
Vital Signs
Temp Pulse Resp BP Pulse Ox
98.3 F 90 16 123/56 90
05/09/25 07:10 05/09/25 08:16 05/09/25 07:10 05/09/25 08:16 05/09/25 07:10
I&O
05/08/25 05/09/25 05/10/25
06:59 06:59 06:59
Intake Total 480 / 480 730 / 730
Output Total 1460 / 1460 1450 / 1450
Balance -980 / -980 -720 / -720
Review of Systems
-
History Source: Patient
Constitutional: Reports No Symptoms
EENT: Reports No Symptoms Reported
Respiratory: Reports No Symptoms
Cardiac: Reports No Symptoms
Abdomen/GI: Reports No Symptoms
Breast: Reports No Symptoms
Genitourinary: Reports No Symptoms
Musculoskeletal: Reports Other (Toe pain)
Neuro: Reports No Symptoms
Endocrine: Reports No Symptoms
Hematologic / Lymphatic: Reports No Symptoms
Allergy / Immunology: Reports No Symptoms
Physical Exam
-
General: Well Developed, Well Nourished, Comfortable and Conversant
HEENT: Normocephalic, Atraumatic, Moist Mucous Membranes and Anicteric
Respiratory: Clear to Auscultation and Wheezes
Cardiac: Regular Rhythm and S1/S2
GI: Soft, Nontender, Nondistended, Normal Bowel Sounds and No Hepatosplenomegaly
Musculoskeletal: Other (Left foot: Dressing in place that is clean/dry/intact. )
Neuro: Awake, AO x 3 and No Motor Deficits
Psych: Calm
Data Reviewed
-
Labs: Labs Reviewed by me and Discussed with Physician
Old Records: Reviewed
[2025-05-09] MEDS: PLAVIX 75 MG PO (11:05)
[2025-05-09] MEDS: ELIQUIS 5 MG PO ×2 (11:05→19:47)
--- NOTE | 2025-05-09 11:37 | CON.ID ---
Consultation
-
Date/Time Consultation Requested: May 09, 2025 1130
Date/Time Consultation Performed: May 09, 2025 1140
Requesting Provider: Dr. Leonardo Zhao
Performing Provider: Dr. Oxana Mendez
Reason for Consultation: Toe osteomyelitis
Chief Complaint / Past History
Chief Complaint
Left great toe infection
History of Present Illness
74-year-old male with history of diabetes mellitus, neuropathy, PAD not amenable to revascularization, history of right BKA presented to ED 05/07 due to left hallux infection. Pt with recent worsening of left hallux wound with edema and redness
extending to dorsum of foot. + worsening pain. No fevers or chills. He was seen at Vascular office, then sent to ED. White count was 29.6. X-ray of the foot showed cortical lucency along the tip of the distal phalanx of the left great toe
suspicious for osteomyelitis. Yesterday he underwent left great toe open amputation. Today, attempt for Limflow procedure was unsuccessful. Patient reports there is postop pain. No other complaints.
Past History
Additional Past Medical History:
Diabetes mellitus
Neuropathy
Severe PAD hx RLE angioplasty; non-revascularizable
HTN
Dyslipidemia
Right foot gangrene status post BKA 01/13/2023
Allergy History:
No Known Allergies Allergy (Verified 10/15/24 12:48)
Medications Reviewed: Yes
Current Antibiotics:
Vancomycin
Zosyn
Social History
Tobacco: Non-Smoker
Alcohol: None
Drug: None
Personal:
Family History
Family History: Not Pertinent
Review of Systems
Review of Systems
General: Negative Fever, Chills or Change in Appetite
HEENT: Negative Sinus Problems or Headache
Cardiovascular: Negative Chest Pain
Respiratory: Negative Dyspnea or Cough
Gasteroenterology: Negative Nausea, Vomiting or Diarrhea
Genital / Urological: Negative Dysuria or Flank Pain
Endocrine: Negative Weakness
All systems: All other systems were reviewed and were negative
Vital Signs
Temp Pulse Resp BP Pulse Ox
98.4 F 83 18 131/62 92
05/09/25 11:00 05/09/25 11:00 05/09/25 11:00 05/09/25 11:00 05/09/25 11:00
Selected Entries
05/09/25
03:10
Temp 101.0 F H
Physical Exam
Physical Exam
Constitutional: No Acute Distress and Comfortable
Eyes: No Conjunctival Hemorrhage and Sclera Anicteric
Cardiovascular: Regular Rate and S1/S2
Pulmonary: Clear
Gastrointestinal: Non Tender and Non Distended
Genito-Urinary: Negative CVA Tenderness
Extremities: Other (Left hallux amp site with wound vac. ); Negative Edema
Neurological: AO x 3
Lab / Diagnostic Study Results
05/09/25 06:14
05/09/25 06:14
Abs Immat Gran (auto) 0.2 10^3/uL (0-0.05) H 05/07/25 14:25
Absolute Neuts (auto) 25.0 10^3/uL (1.4-6.5) H 05/07/25 14:25
Absolute Lymphs (auto) 2.0 10^3/uL (1.2-3.4) 05/07/25 14:25
Absolute Monos (auto) 2.3 10^3/uL (0.1-0.6) H 05/07/25 14:25
Absolute Basos (auto) 0.1 10^3/uL (0-0.2) 05/07/25 14:25
Immature Gran % 0.7 % (0-0.5) H 05/07/25 14:25
Neutrophils % 84.4 % (42.2-75.2) H 05/07/25 14:25
Lymphocytes % 6.6 % (20.5-51.1) L 05/07/25 14:25
Monocytes % 7.7 % (1.7-9.3) 05/07/25 14:25
Eosinophils % 0.2 % (0-6) 05/07/25 14:25
Basophils % 0.4 % (0-2) 05/07/25 14:25
Lactic Acid Cancelled 05/07/25 20:30
Microbiology Results
Micro:
05/08/25 16:53 Wound Culture - Pending
Toe Gram Stain - Preliminary
05/07/25 16:51 Wound Culture - Preliminary
Toe Gram Stain - Preliminary
05/08/25 05:33 MRSA Screen - Final
Nose No Methicillin Resistant Staphylococcus aureus isolated.
05/07/25 16:51 Blood Culture - Preliminary
Blood/Venous No Growth in 24 hours- Final report to follow
05/07/25 16:54 Blood Culture - Preliminary
Blood/Venous No Growth in 24 hours- Final report to follow
05/08/25 Foot XRAY: Surgical amputation of the phalanges of the left great toe in the interval since study of preceding day.
05/07/25 Foot XRAY: Some suspected cortical lucency at least along the distal tip of the distal phalanx of left great toe, at least suspicious for osteomyelitis.
Assessment / Plan
# Left hallux gangrene and osteo
# Severe PAD, not amenable to revascularization
# Leukocytosis
# Post-op fever
# DM
- 05/08 s/p left great toe open amputation
- 05/09 failed attempt Limflow. Will re-attempt in 2 weeks, by report.
- DC Vanomycin.
- Continue Zosyn for now.
- Trend temps/wbc.
--- NOTE | 2025-05-09 12:24 | PN.CDI ---
CDI
- -
CDI:
Physician Documentation Request
Admit Date: 05/07/25 18:43
Dear Doctor April/Resident ,
Please review the following and provide your response in the progress notes.
Clinical Indicators:
Pt admitted with Left great toe osteomyelitis/ Gangrene/ Cellulitis s/p Left hallux amputation on 05/08
On admission WBC 29.6, HR 103 /Pt currently on Zosyn/Vancomycin ID has been consulted
Please clarify which of the following most accurately describes the status of the patient's infection:
Sepsis-POA
- Systemic manifestations of infection, with 2 or more SIRS criteria which include:
- Fever >100.9 degrees F or hypothermia < 96.8 degrees F
- Leukocytosis - WBC > 12,000 or leukopenia - WBC < 4,000 or > 10% bands
- Tachycardia > 90 beats per minute
- Tachypnea - RR > 20 breaths per minute or PaCO2 , 32mmHg
Source: Merck Manual 2013
Left great toe gangrene/Cellulitis , Without Systemic Illness
.
Other ( Please specify)
Use of terms such as suspected, likely, concern for, or probable (associated with a specific diagnosis that is being evaluated, monitored, or treated as if it exists) are acceptable and can be coded in the inpatient setting, when documented at the
time of discharge.
Thank you,
Maxine Shi RN
CDI Specialist
[place] [facility]
Please use your independent medical judgment in providing your response.
--- NOTE | 2025-05-09 12:47 | PN.DE.MGMTRT ---
Insulin Management
- -
05/09/2025 Diabetes Management Consult
Patient admitted 05/07 with blisters and pain L great toe. Sent from Dr. Church's office for antibiotics and vascular procedure. PMH RBKA, HTN, severe distal small vessel obliterated PAD, diabetes, CO 1 month ago. Prior to admission chart notes
patient was taking detemir 68 units daily with 14 units novolog AC , Jardiance 25 mg daily and metformin 1000 BID. A1C is 8.4%, cr 1.1, eGFR > 60.
Patient is not on the units, currently in OR for procedure with vascular. Information from chart and patient nurse.
I discussed with nurse patients current meds and insulin. Most likely patient is requiring less insulin due to diet constraints here.
Patient received 50 units lantus in AM yesterday and today, glucose range 81 to 173. Was NPO overnight fasting glucose 124. When patient resumes diet will resume AC novolog 8 units with moderate corrective insulin. Diet should include 1800
calorie restriction.
Discussed with nurse
Will follow
Diabetes History
- -
Type of Diabetes: 2 requiring insulin
Pre-Admission Diabetes Regimen
05/09/25
06:14
Creatinine 1.1
Lab Results
Hemoglobin A1c 8.4 % (4.0-5.6) H 05/08/25 06:07
Insulin Pump Settings
IP Diabetes Regimen
05/08/25 05/08/25 05/08/25
17:40 18:00 18:32
Glucose
POC Glucose 69 L 89 101 H
05/08/25 05/09/25 05/09/25
22:33 05:58 06:14
Glucose 124 H
POC Glucose 173 H 124 H
05/09/25
08:27
Glucose
POC Glucose 141 H
Meal type: Lunch
Patient Education
--- NOTE | 2025-05-09 13:37 | OR.RPT ---
Operative Report
Operative Report
PROCEDURE DATE: 05/09/2025
Preoperative diagnosis:
1. Chronic limb threatening ischemia left foot with left first toe infection now status post open amputation first toe.
2. Severe small vessel peripheral arterial disease.
Postoperative diagnosis: Same
Procedure:
1. Duplex assisted cannulation of left lateral plantar vein. Venography of foot.
2. Duplex assisted cannulation of left posterior tibial vein. Ascending venogram left calf.
Surgeon: Ranjit
Sink Maker: None
Complications: None
Anesthesia: General
Fluoroscopy:
6.3 min
18 mGy
5.46 gy.cm2
Indications for procedure:
Patient with left first toe chronic wound. Had discussed with him attempting TADV as on angiography had small vessel disease with no further large or medium vessel revascularization options. He had wished to wait it out. In the interim his toe
became infected. Presented the hospital. Underwent open surgical toe amputation. Now brought in for attempted TADV/LimFlow. Risk/benefits/alternatives also discussed. Patient understood all EXTR proceed.
Description of procedure:
Patient was identified, brought to the operating room. Placed on the table in the supine position. After the adequate administration of anesthesia, the patient was prepped and draped in the standard surgical fashion. A standard preoperative
timeout was undertaken and everybody was in agreement with the plan.
A tourniquet was inflated at the ankle to 100 to 150 mm.
The left foot on the plantar aspect was punctured under direct duplex ultrasound guidance and what appeared to be the vicinity of the plantar vein. I initially got blood return but could not pass a wire. I inspected with fluoroscopy, but even
under fluoroscopy I could not advance my wire. I therefore tried several other attempts at needle cannulation of veins in the vicinity. I kept having the same problem. Finally I was able to get much brisker blood return and assumed I was more
definitively the true lateral plantar vein. However again I could not pass my wire. I did perform a venogram of the foot. This demonstrated that the needle partially was extravasating, and the vein was very small it was then. There is a very
spasmed or diseased venous system in the foot. There may have been what appeared to be a lateral plantar vein but I cannot say definitively that is what this was. There is no great filling in the foot to be honest.
Therefore at this point we felt that it may be more ideal to get into the posterior tibial vein at the ankle and see if we could form a connection to the peroneal vein as the peroneal artery would be the inflow to the venous system anyway if we
proceed with the procedure. I was able to (with some difficulty) cannulate the posterior tibial vein with a micropuncture needle under duplex assisted guidance. I then advanced a micropuncture sheath. Ascending venogram of the calf and ankle was
performed. This demonstrated that I was indeed in the posterior tibial vein. Good filling of the posterior tibial veins was seen as a send at the calf. However I did not see any crossing towards the peroneal vein. In addition with the tourniquet
up, I did not see good refluxing of venous flow into the foot. Therefore, at this point we felt that the procedure was not viable/performable based on limited venous outflow. At this point, the tourniquet was let down, and all wires and catheters
were withdrawn. Manual pressure was applied to the puncture site. Hemostasis was achieved. Patient tolerated the procedure well.
[2025-05-09 13:45] LABS: Glucose - Point of Care 126 mg/dl (70-99)
--- NOTE | 2025-05-09 13:49 | CM ---
Pt had left toe amputation .
Pt will need Post op PT OT ordered.
PT needed for discharge planning.
PLAN Probable Home with VN
[2025-05-09] MEDS: ZOSYN IV (14:27)
[2025-05-09] MEDS: LANOXIN 125 MCG PO (15:48)
[2025-05-09] MEDS: NOVOLOG FLEXPEN-HIGH RESISTANCE SC ×2 (16:01→17:13)
[2025-05-09 17:10] LABS: Glucose - Point of Care 147 mg/dl (70-99)
--- NOTE | 2025-05-09 17:31 | W.PN.SURGUPD ---
Surgical Update
Surgical Update
74 yo M s/p L hallux amputation
-Heel WBAT
-PT/OT
-Dressings to remain C/D/I
-Continue abx for 48 hours
-Will reassess on AM rounds
[2025-05-09] MEDS: NOVOLOG FLEXPEN 8 UNITS SC (18:02)
[2025-05-09] MEDS: LIPITOR 80 MG PO (21:12)
[2025-05-09 21:54] LABS: Glucose - Point of Care 330 mg/dl (70-99)
[2025-05-09] MEDS: NOVOLOG FLEXPEN 7 UNITS SC (22:11)
[2025-05-10] VITALS (10 sets, daily range): BP systolic 104–136; BP diastolic 57–84; PULSE 56–80; O2SAT 93–94
[2025-05-10] MEDS: ZOSYN 50 IV ×5 (00:06→23:14)
[2025-05-10] MEDS: ROXICODONE 5 MG PO ×3 (02:35→20:28)
[2025-05-10 07:08] LABS: Glucose - Point of Care 241 mg/dl (70-99)
[2025-05-10 07:30] LABS: Hematocrit 35.8 % (39.0-52.0); Hemoglobin 12.0 g/dL (13.0-18.0); Mean Corp Hgb Conc. 33.5 g/dL (33.0-37.0); Mean Corpuscular Volume 89.5 fL (80.0-94.0); Nucleated Red Blood Cells % 0 % (-); Platelet Count 346 10^3/uL (130-400); Red Cell Dist. Width 13.1 % (11.5-14.5)
[2025-05-10] MEDS: HEPARIN 5000 UNITS SC (07:47)
[2025-05-10] MEDS: NEURONTIN 300 MG PO ×3 (07:48→21:18)
[2025-05-10] MEDS: NOVOLOG FLEXPEN-HIGH RESISTANCE 4 UNITS SC (07:48)
[2025-05-10] MEDS: PLAVIX 75 MG PO (07:48)
[2025-05-10] MEDS: ELIQUIS 5 MG PO ×2 (07:48→20:12)
[2025-05-10] MEDS: CYMBALTA DELAYED RELEASE 60 MG PO (07:48)
[2025-05-10] MEDS: NOVOLOG FLEXPEN 8 UNITS SC (07:49)
[2025-05-10] MEDS: LANTUS 0.5 UNITS SC (07:50)
[2025-05-10 07:52] LABS: Blood Urea Nitrogen 23 mg/dl (9-20); Calcium 8.2 mg/dl (8.4-10.2); Carbon Dioxide 25 mmol/L (22-30); Chloride 101 mmol/L (98-107); Estimated Creatinine Clearance 77 ml/min; Glucose 253 mg/dl (70-99); Magnesium 2.1 mg/dl (1.6-2.3); Potassium 4.8 mmol/L (3.5-5.1); Sodium 135 mmol/L (135-145); eGFR > 60.00
--- NOTE | 2025-05-10 08:02 | PN.DE.MGMTRT ---
Insulin Management
- -
05/10/2025 Diabetes Management Follow up
Patient admitted 05/07 with blisters and pain L great toe. Sent from Dr. Church's office for antibiotics and vascular procedure. PMH RBKA, HTN, severe distal small vessel obliterated PAD, diabetes, AR 1 month ago. Prior to admission chart notes
patient was taking detemir 68 units daily with 14 units NovoLog AC , Jardiance 25 mg daily and metformin 1000 BID. A1C is 8.4%, cr 1.1, eGFR > 60.
Patient awake, alert, sitting up in bed, offers no complaints, able to discuss diabetes care plan, family at bedside, very supportive.
Diet has been resumed. Patient received 50 units Lantus in AM. Glucose trended up once diet was resumed, HS 330, FBG 253 V, 241 POC 81 to 173.
Will increase Lantus to 55 units and AC NovoLog 12 units with low corrective insulin. Will resume Farxiga and Metformin
Discussed with nurse. Will cont to follow
Diabetes History
- -
Type of Diabetes: 2 requiring insulin
Pre-Admission Diabetes Regimen
05/09/25 05/10/25
06:14 06:23
Creatinine 1.1 1.0
Lab Results
Hemoglobin A1c 8.4 % (4.0-5.6) H 05/08/25 06:07
Insulin Pump Settings
IP Diabetes Regimen
05/09/25 05/09/25 05/09/25
06:14 08:27 13:42
Glucose 124 H
POC Glucose 141 H 126 H
05/09/25 05/09/25 05/10/25
17:09 21:52 06:23
Glucose 253 H
POC Glucose 147 H 330 H
05/10/25
07:07
Glucose
POC Glucose 241 H
Patient Education
--- NOTE | 2025-05-10 08:21 | OR.RPT ---
Operative Report
Operative Report
OPERATIVE REPORT
Patient Name: Nehemiah Miller

Date of Surgery: 05/08/2025
Surgeon: Mulugeta Wolff DPM
Assistants: Mulugeta Blackwell DPM
Preoperative Diagnosis:
Gangrene of left hallux
Osteomyelitis of left hallux
Severe peripheral arterial disease
Postoperative Diagnosis:
Same as preoperative
Procedure Performed:
Open left hallux amputation CPT 05867
Wound VAC application CPT 25274
Anesthesia:
Monitored anesthesia care with local infiltration of 0.5% bupivacaine plain
Estimated Blood Loss: <10 mL
Specimens: Entire left hallux to pathology and microbiology
Complications: None immediate
Indications for Procedure:
The patient is a 74-year-old male with severe peripheral arterial disease presenting with wet gangrene of the left hallux associated with osteomyelitis, confirmed by clinical exam and imaging. Given the extent of necrosis, infection, and poor
vascular status, the decision was made to proceed with an open hallux amputation for infection and source control. 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 The
risks, benefits, and alternatives were explained to the patient, who provided informed consent.
Procedure in Detail:
The patient was transported to the operating room and placed supine on the operating table. A time-out was performed for safety and the correct surgical site was identified. Following appropriate anesthesia, the left foot was prepped and draped in
the usual sterile manner.
A fish-mouth type incision was made circumferentially at the level of the hallux metatarsophalangeal joint, carried sharply through skin and subcutaneous tissue. Dissection was performed down to the level of the joint capsule. The hallux was
disarticulated at the first metatarsophalangeal joint. The specimen, consisting of the entire hallux, was sent to pathology for gross and histopathologic evaluation, as well as microbiology culture.
Inspection of the first metatarsal head revealed viable but poorly perfused bone without obvious gross purulence extending proximally. Minimal soft tissue bleeding was encountered throughout the procedure due to advanced vascular disease. Necrotic
and nonviable tissue was sharply debrided until healthier appearing soft tissue was encountered.
The wound was irrigated thoroughly with copious amounts of normal saline mixed with antibiotic solution. Hemostasis was achieved with cautery and pressure. Given the patient�s poor vascular status and infected wound bed, the decision was made to
leave the amputation site open. Then a wound VAC dressing was applied consisted of black polyurethane foam cut to fit the wound bed, covered with an occlusive drape, and connected to negative pressure at 125 mmHg continuous suction. A good seal was
obtained.
Disposition:
The patient tolerated the procedure well and was transported to the recovery room in stable condition. The plan is for continued IV antibiotics per Infectious Disease recommendations, vascular plans for revascularization, and wound care with
potential delayed closure or more proximal amputation depending on vascular recommendations.
--- NOTE | 2025-05-10 08:24 | W.PN.VS ---
Today's Communication / Plan
-
See below, plan reviewed with attending Dr. Blu Cuhrch.
Assessment/Plan
-
Assessment: 74 year old male with non-healing wound at left foot with PAD and POD#1 Duplex assisted cannulation of left lateral plantar vein. Venography of foot. Duplex assisted cannulation of left posterior tibial vein. Ascending venogram left
calf.
Plan:
Will schedule short order outpatient follow up for wound check and reassess left plantar/PT veins for possible re attempt at limflow once infection has imporved at left foot
Follow up placed in discharge instructions
We will sign off please call with questions or concerns
Subjective Data
-
Date of Service: May 10, 2025
Patient seen and examined at bedside, offers no complaints. Denies pain at left foot.
Objective Data
-
Vital Signs
Temp Pulse Resp BP Pulse Ox
97.6 F 56 20 113/59 94
05/10/25 03:45 05/10/25 07:53 05/10/25 03:45 05/10/25 07:53 05/10/25 03:45
Intake and Output
05/09/25 05/10/25 05/11/25
06:59 06:59 06:59
Intake Total 730 / 730 50 / 50
Output Total 1450 / 1450 2645 / 2645
Balance -720 / -720 -2595 / -2595
Intake:
IV fluids (Total) 480 / 480 50 / 50
Normosol 50 / 50
IV piggybacks 250 / 250
Output:
Urine, Scott 1000 / 1000
Urine, Voided 1450 / 1450 1645 / 1645
Other:
How many times incontinent 1
SATURATED amount urine
Lab Results
05/10/25 06:23
05/10/25 06:23
Calcium 8.2 mg/dl (8.4-10.2) L 05/10/25 06:23
Magnesium 2.1 mg/dl (1.6-2.3) 05/10/25 06:23
Total Bilirubin 1.2 mg/dl (0.2-1.3) 05/07/25 14:25
AST 30 U/L (17-59) 05/07/25 14:
ALT 31 U/L (0-50) 05/07/25 14:25
Alkaline Phosphatase 127 U/L (38-126) H 05/07/25 14:25
Total Protein 8.0 g/dl (6.3-8.2) 05/07/25 14:
Albumin 4.1 g/dl (3.5-5.0) 05/07/25 14:25
Physical Exam
-
AAOx3, NAD
No tachycardia
No dyspnea on room air
ABD nondistended
left foot wound vac dressing CDI, holding suction, left foot venous puncture site CDI, no evidence of hematoma or bleeding
--- NOTE | 2025-05-10 08:43 | W.PN.UPDATE ---
Update Note
Progress Note Update
I saw and evaluated the patient. I reviewed the resident�s note and agree with findings and plan as documented in the resident�s note.
Denies CP/SOB.
Gen: NAD, AAOx3.
Eyes: EOMI, PERRLA, no scleral icterus.
Neck: supple.
CV: continues to remain RRR, +S1/S2, no m/r/g.
Resp: remains CTAB anteriorly, no rales, wheezes, or rhonchi.
Abd: +BS, soft, NT, ND
Skin: No rashes. L foot with C/D/I dressing with wound vac in place
Neuro: CN 2-12 intact, non-focal.
Psych: Normal mood and affect.
05/08/25 16:53 Toe Wound Culture - Preliminary
Klebsiella oxytoca
Providencia alcalfaciens
Enterococcus species
05/08/25 16:53 Toe Gram Stain - Preliminary
05/07/25 16:51 Toe Wound Culture - Preliminary
Klebsiella oxytoca
Providencia alcalfaciens
Enterococcus species
05/07/25 16:51 Toe Gram Stain - Preliminary
05/07/25 16:51 Blood/Venous Blood Culture - Preliminary
No Growth in 48 hours- Final report to follow
05/07/25 16:54 Blood/Venous Blood Culture - Preliminary
No Growth in 48 hours- Final report to follow
05/08/25 05:33 Nose MRSA Screen - Final
No Methicillin Resistant Staphylococcus aureus isolated.
L foot Xray: Some suspected cortical lucency at least along the distal tip of the distal phalanx of left great toe, at least suspicious for osteomyelitis.
Infected L great toe:
-underlying severe distal small vessel obliterative PAD
-h/o R BKA 01/13/2023 (Dr Church)
-s/p L open hallux amputation, application of NPWT on 05/08/25
-BCx NGTD, WCx polymicrobial as above
-cont Zosyn as per ID
-05/10/25 vascular procedure: 1. Duplex assisted cannulation of left lateral plantar vein. Venography of foot. 2. Duplex assisted cannulation of left posterior tibial vein. Ascending venogram left calf.
-cont Plavix/Eliquis
-vascular saw in c/s and has signed off. For outpt reattempt at Limflow after infection improved.
DM2:
-a1c 8.4%
-cont Lantus 55U/premeal 12U
-high-res SSI
-diabetes MEDICAL INVESTIGATOR following
Other problems:
Hyponatremia, resolved
Chronic hypotension: cont Midodrine
HLD: cont statin
Obesity due to excess calories
FULL/Heparin
--- NOTE | 2025-05-10 09:06 | W.PN.HOSP.TC ---
Today's Communication/Plan
-
OR on Tuesday05/13/25
Continue plan as stated in assessment/plan
Assessment / Plan
Assessment / Plan
This is a 74-year-old male with a past medical history of type 2 diabetes mellitus, severe distal small vessel obliterative PAD, right BKA, hypertension who presented to the ED with gangrene of the left great toe. Patient states that he had a
blister to the left great toe for several months, and has been increasing in size swelling and pain since. He was seen by vascular surgery Dr. Church today and was sent to the ER for IV antibiotics and possible admission. Patient denies fever, chills
or any other symptoms.
XR left foot: Some suspected cortical lucency at least along the distal tip of the distal phalanx of left great toe, mildly suspicious for osteomyelitis.
Assessment/plan:
# Left great toe infection
# History of severe distal small vessel obliterative PAD
# History of right BKA/ by Dr. Church
Wound culture 05/08/25 polymicrobial.
� S/p left open hallux amputation 05/08/24 with application of negative pressure wound therapy- dressing change 05/10/25.
� Continue Zosyn, Vanco discontinued. Infectious disease following.
� Failed Limflow 05/09/25, will reattempt in 2 weeks after outpatient reassessment. Vascular surgery signed off.
� Continue Plavix/Eliquis.
� Podiatry consulted and following. To reevaluate on 05/13/25 for potential closure vs further amputation with high risk that it will fail given failed vascular procedure.
#Hyponatremia-resolved
�Na 129 on 05/09/2025, improved to 135 on 05/10/25. Was likely due to SIADH due to pain.
# Type 2 diabetes mellitus
�HbA1c 8.4 05/08/25
�Increased to Lantus 55 units. AC Novolog 12 units with low corrective insulin. Farxiga and Metformin resumed.
�DM REGISTERED TRAVEL NURSE following.
# Chronic hypotension
� Continue midodrine 5 Mg p.o. daily.
# Hyperlipidemia
� Continue statin.
# Mild hyponatremia
�133 today 05/08/2025, will continue to trend BMP.
#Obesity due to excess calories
DVT prophylaxis: Heparin
CODE STATUS: Full
Anticipated Discharge: > 48 hours
Subjective/Interval History
-
Date of Service: May 10, 2025
Patient states he feels well. He had a 'mishap' last night where he thought he was at home and tried to get out of bed-he accidentally took off the wound VAC. The nurses were able to put it back on. No new complaints.
Objective Data
-
Labs:
Laboratory Results
05/10/25
06:23
WBC 20.2 H
Hgb 12.0 L
Hct 35.8 L
Plt Count 346
Sodium 135
Potassium 4.8
Chloride 101
Carbon Dioxide 25
BUN 23 H
Creatinine 1.0
Glucose 253 H
Calcium 8.2 L
Vital Signs:
Vital Signs
Temp Pulse Resp BP Pulse Ox
97.5 F 56 16 113/59 90
05/10/25 07:00 05/10/25 07:53 05/10/25 07:00 05/10/25 07:53 05/10/25 07:00
I&O
05/09/25 05/10/25 05/11/25
06:59 06:59 06:59
Intake Total 730 / 730 50 / 50
Output Total 1450 / 1450 2645 / 2645
Balance -720 / -720 -2595 / -2595
Review of Systems
-
History Source: Patient
Constitutional: Reports No Symptoms
EENT: Reports No Symptoms Reported
Respiratory: Reports No Symptoms
Cardiac: Reports No Symptoms
Abdomen/GI: Reports No Symptoms
Breast: Reports No Symptoms
Genitourinary: Reports No Symptoms
Musculoskeletal: Reports No Symptoms
Skin: Reports No Symptoms
Neuro: Reports No Symptoms
Endocrine: Reports No Symptoms
Hematologic / Lymphatic: Reports No Symptoms
Physical Exam
-
General: Well Developed, Well Nourished and No Apparent Distress
HEENT: Normocephalic, Atraumatic, Moist Mucous Membranes and Anicteric
Respiratory: Clear to Auscultation
Cardiac: Regular Rhythm and S1/S2
GI: Soft, Nontender, Nondistended and Normal Bowel Sounds
Musculoskeletal: No Clubbing, No Cyanosis, No Edema and Other (Left foot: Dressing in place that is clean/dry/intact.)
Neuro: Awake, AO x 3 and Nonfocal/Grossly Intact
Hematologic / Lymphatic: No Lymphadenopathy
Psych: Calm
Data Reviewed
-
Labs: Labs Reviewed by me and Discussed with Physician
Old Records: Reviewed
[2025-05-10 12:38] LABS: Glucose - Point of Care 211 mg/dl (70-99)
[2025-05-10] MEDS: LANOXIN 125 MCG PO (12:38)
[2025-05-10] MEDS: NOVOLOG FLEXPEN 12 UNITS SC ×2 (12:40→17:24)
[2025-05-10] MEDS: NOVOLOG FLEXPEN-LOW RESISTANCE 1 UNITS SC (12:40)
--- NOTE | 2025-05-10 13:10 | W.PN.UPDATE ---
Update Note
Progress Note Update
74 yo M s/p L hallux amputation, doing well this AM
-Heel WBAT
-PT/OT
-Dressings to remain C/D/I
-- will change NPWT this afternoon, at which point should be running continuous at 125mmHg
-Continue abx for 48 hours
-Plan for OR Tuesday debridement with delayed primary closure
--- NOTE | 2025-05-10 13:57 | W.PN.ID1 ---
Date of Service
Date of Service: May 10, 2025
Today's Communication
Continue Zosyn.
Assessment / Plan
# Left hallux gangrene and osteo
# Severe PAD, not amenable to revascularization
# Leukocytosis, trended up
# Post-op fever, resolved
# DM
# hx R BKA
- 05/08 s/p left great toe open amputation
OR cx: E. faecalis, Providencia, Klebsiella oxytoca
- 05/09 failed attempt Limflow. Will re-attempt in 2 weeks, per vascular.
- For delayed primary closure on Tuesday, per Podiatry.
- Continue Zosyn
- Trend wbc.
Chief Complaint
-: Other (toe gangrene)
Subjective / Review of Systems
No complaints today.
Vital Signs / Physical Exam
Vital Signs
Vital Signs
Temp Pulse Resp BP Pulse Ox
98 F 99 20 130/83 93
05/10/25 12:45 05/10/25 12:45 05/10/25 12:45 05/10/25 12:45 05/10/25 13:42
Physical Exam
Constitutional: No Acute Distress
Cardiovascular: Regular Rate and S1/S2
Pulmonary: Clear
Gastrointestinal: Soft, Non Tender and Non Distended
Extremities: Negative Edema
Wound: Other (Right hallux amp site with wound vac in place. Forefoot with petechia)
Neurological: AO x 3
Objective Data
Lab Data
Lab Results
05/10/25 06:23
05/10/25 06:23
Estimated Creat Clear 77 ml/min 05/10/25 06:23
Lactic Acid Cancelled 05/07/25 20:30
Total Bilirubin 1.2 mg/dl (0.2-1.3) 05/07/25 14:25
AST 30 U/L (17-59) 05/07/25 14:25
ALT 31 U/L (0-50) 05/07/25 14:25
Alkaline Phosphatase 127 U/L (38-126) H 05/07/25 14:25
Most recent labs reviewed.
Micro Results:
05/08/25 16:53 Wound Culture - Final
Toe Klebsiella oxytoca
Providencia alcalfaciens
Enterococcus faecalis
Gram Stain - Final
05/07/25 16:51 Wound Culture - Final
Toe Klebsiella oxytoca
Providencia alcalfaciens
Enterococcus faecalis
Gram Stain - Final
05/07/25 16:51 Blood Culture - Preliminary
Blood/Venous No Growth in 48 hours- Final report to follow
05/07/25 16:54 Blood Culture - Preliminary
Blood/Venous No Growth in 48 hours- Final report to follow
05/08/25 05:33 MRSA Screen - Final
Nose No Methicillin Resistant Staphylococcus aureus isolated.
05/08/25 Foot XRAY: Surgical amputation of the phalanges of the left great toe in the interval since study of preceding day.
05/07/25 Foot XRAY: Some suspected cortical lucency at least along the distal tip of the distal phalanx of left great toe, at least suspicious for osteomyelitis.
--- NOTE | 2025-05-10 15:38 | CM ---
Pt for surgery debridement Tuesday.
Will need PT OT orders written postop.
Pt has wound vac. Currently on IV antibiotics.
Pt with right leg prosthesis, wc,walker,cane at home
Pt lives alone Children live close.
Offered Pac data for SNF if that is rehab recombination.
PLAN Home with VN VS SNF
[2025-05-10 16:38] LABS: Glucose - Point of Care 203 mg/dl (70-99)
[2025-05-10] MEDS: NOVOLOG FLEXPEN-LOW RESISTANCE 2 UNITS SC (17:24)
[2025-05-10 21:13] LABS: Glucose - Point of Care 217 mg/dl (70-99)
[2025-05-10] MEDS: LIPITOR 80 MG PO (21:18)
[2025-05-10 23:05] LABS: 24 Hour Urine Total Volume 2250 ml; Osmolality 24 Hour Urine 524 mOsm/kg (300-900)
[2025-05-10] MEDS: TYLENOL 650 MG PO (23:51)
[2025-05-11] MEDS: ROXICODONE 5 MG PO ×4 (00:51→22:27)
[2025-05-11] MEDS: ZOSYN 50 IV ×4 (05:32→23:19)
[2025-05-11 07:10] VITALS: BP 125/73
[2025-05-11 07:57] LABS: Glucose - Point of Care 130 mg/dl (70-99)
[2025-05-11] MEDS: LANTUS 0.55 UNITS SC (07:57)
[2025-05-11] MEDS: CYMBALTA DELAYED RELEASE 60 MG PO (07:58)
[2025-05-11] MEDS: PLAVIX 75 MG PO (07:58)
[2025-05-11] MEDS: ELIQUIS 5 MG PO ×2 (07:58→20:23)
[2025-05-11] MEDS: NEURONTIN 300 MG PO ×3 (07:58→22:25)
[2025-05-11] MEDS: NOVOLOG FLEXPEN 12 UNITS SC ×3 (07:59→16:27)
[2025-05-11] MEDS: NOVOLOG FLEXPEN-LOW RESISTANCE SC ×2 (08:00→12:13)
[2025-05-11 08:18] LABS: Hematocrit 32.5 % (39.0-52.0); Hemoglobin 10.8 g/dL (13.0-18.0); Mean Corp Hgb Conc. 33.2 g/dL (33.0-37.0); Mean Corpuscular Volume 89.0 fL (80.0-94.0); Nucleated Red Blood Cells % 0 % (-); Platelet Count 329 10^3/uL (130-400); Red Cell Dist. Width 13.1 % (11.5-14.5)
[2025-05-11 08:47] LABS: Blood Urea Nitrogen 22 mg/dl (9-20); Calcium 7.8 mg/dl (8.4-10.2); Carbon Dioxide 27 mmol/L (22-30); Chloride 98 mmol/L (98-107); Estimated Creatinine Clearance 77 ml/min; Glucose 109 mg/dl (70-99); Magnesium 1.8 mg/dl (1.6-2.3); Potassium 4.1 mmol/L (3.5-5.1); Sodium 133 mmol/L (135-145); eGFR > 60.00
--- NOTE | 2025-05-11 09:15 | W.PN.UPDATE ---
Update Note
Progress Note Update
I saw and evaluated the patient. I reviewed the resident�s note and agree with findings and plan as documented in the resident�s note.
No new complaints.
Gen: NAD, AAOx3.
Eyes: EOMI, PERRLA, no scleral icterus.
Neck: supple.
CV: RRR, +S1/S2, no m/r/g.
Resp: continues to remain CTAB anteriorly, no rales, wheezes, or rhonchi.
Abd: +BS, soft, NT, ND
Skin: No rashes. L foot with C/D/I dressing with wound vac in place
Neuro: CN 2-12 intact, non-focal.
Psych: Normal mood and affect.
05/07/25 16:51 Blood/Venous Blood Culture - Preliminary
No Growth in 72 hours- Final report to follow
05/07/25 16:54 Blood/Venous Blood Culture - Preliminary
No Growth in 72 hours- Final report to follow
05/08/25 16:53 Toe Wound Culture - Final
Klebsiella oxytoca
Providencia alcalfaciens
Enterococcus faecalis
05/08/25 16:53 Toe Gram Stain - Final
05/07/25 16:51 Toe Wound Culture - Final
Klebsiella oxytoca
Providencia alcalfaciens
Enterococcus faecalis
05/07/25 16:51 Toe Gram Stain - Final
05/08/25 05:33 Nose MRSA Screen - Final
No Methicillin Resistant Staphylococcus aureus isolated.
L foot Xray: Some suspected cortical lucency at least along the distal tip of the distal phalanx of left great toe, at least suspicious for osteomyelitis.
Infected L great toe:
-underlying severe distal small vessel obliterative PAD
-h/o R BKA 01/13/2023 (Dr Church)
-s/p L open hallux amputation, application of NPWT on 05/08/25
-BCx NGTD, WCx polymicrobial as above
-cont Zosyn as per ID
-05/10/25 vascular procedure: 1. Duplex assisted cannulation of left lateral plantar vein. Venography of foot. 2. Duplex assisted cannulation of left posterior tibial vein. Ascending venogram left calf.
-cont Plavix/Eliquis
-vascular saw in c/s and has signed off. For outpt reattempt at Limflow after infection improved.
-for OR 05/13/25 (closure vs further debridement)
DM2:
-a1c 8.4%
-cont Lantus 55U/premeal 12U
-high-res SSI
-diabetes MANAGER SALT following
Other problems:
Hyponatremia, resolved
Chronic hypotension: cont Midodrine
HLD: cont statin
Obesity due to excess calories
FULL/Heparin
--- NOTE | 2025-05-11 09:59 | W.PN.HOSP.TC ---
Today's Communication/Plan
-
OR on 05/13/2025
Podiatry following
Continue plan as stated in assessment/plan
Assessment / Plan
Assessment / Plan
This is a 74-year-old male with a past medical history of type 2 diabetes mellitus, severe distal small vessel obliterative PAD, right BKA, hypertension who presented to the ED with gangrene of the left great toe. Patient states that he had a
blister to the left great toe for several months, and has been increasing in size swelling and pain since. He was seen by vascular surgery Dr. Church today and was sent to the ER for IV antibiotics and possible admission. Patient denies fever, chills
or any other symptoms.
XR left foot: Some suspected cortical lucency at least along the distal tip of the distal phalanx of left great toe, mildly suspicious for osteomyelitis.
Assessment/plan:
# Left great toe infection
# History of severe distal small vessel obliterative PAD
# History of right BKA/ by Dr. Church
Wound culture 05/08/25 polymicrobial.
� S/p left open hallux amputation 05/08/24 with application of negative pressure wound therapy- dressing change 05/10/25.
� Continue Zosyn, Vanco was discontinued. Infectious disease following.
� Vascular surgery saw and signed off. Failed Limflow 05/09/25, will reattempt in 2 weeks after outpatient reassessment.
� Continue Plavix/Eliquis.
� Podiatry consulted and following. OR on 05/13/25 to reevaluate on for potential closure vs further amputation with high risk that it will fail given failed vascular procedure.
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
�Na 135 on 05/10/25, decreased to 133 today 05/11/25.
�Trend BMP.
# Type 2 diabetes mellitus
� HbA1c 8.4 05/08/25
� Increased to Lantus 55 units. AC Novolog 12 units with low corrective insulin. Farxiga and Metformin resumed.
� DM DOCTOR OF NAPRAPATHY following.
# Chronic hypotension
� Continue midodrine 5 Mg p.o. daily.
# Hyperlipidemia
� Continue statin.
# Mild hyponatremia
�133 today 05/08/2025, will continue to trend BMP.
#Obesity due to excess calories
DVT prophylaxis: Heparin
CODE STATUS: Full
Anticipated Discharge: > 48 hours
Subjective/Interval History
-
Date of Service: May 11, 2025
Upon evaluation of patient today, patient states he accidentally rested his left foot on the hard surface of the bed and has been having slightly increased foot pain with associated calf pain. Patient denies any leg swelling or any other new
symptoms.
Objective Data
-
Labs:
Laboratory Results
05/11/25
06:58
WBC 15.9 H
Hgb 10.8 L
Hct 32.5 L
Plt Count 329
Sodium 133 L
Potassium 4.1
Chloride 98
Carbon Dioxide 27
BUN 22 H
Creatinine 1.0
Glucose 109 H
Calcium 7.8 L
Vital Signs:
Vital Signs
Temp Pulse Resp BP Pulse Ox
98.6 F 88 18 125/73 92
05/11/25 07:10 05/11/25 07:58 05/11/25 07:10 05/11/25 07:58 05/11/25 07:10
I&O
05/10/25 05/11/25 05/12/25
06:59 06:59 06:59
Intake Total 50 / 50 940 / 940
Output Total 2645 / 2645 1750 / 1750
Balance -2595 / -2595 -810 / -810
Review of Systems
-
History Source: Patient
Constitutional: Reports No Symptoms
EENT: Reports No Symptoms Reported
Respiratory: Reports No Symptoms
Cardiac: Reports No Symptoms
Abdomen/GI: Reports No Symptoms
Breast: Reports No Symptoms
Genitourinary: Reports No Symptoms
Musculoskeletal: Reports Other (Left calf pain, left foot pain)
Neuro: Reports No Symptoms
Endocrine: Reports No Symptoms
Hematologic / Lymphatic: Reports No Symptoms
Physical Exam
-
General: Well Developed, Well Nourished and No Apparent Distress
HEENT: Normocephalic, Atraumatic, Moist Mucous Membranes and Anicteric
Respiratory: Clear to Auscultation
Cardiac: Regular Rhythm and S1/S2
GI: Soft, Nontender, Nondistended and Normal Bowel Sounds
Musculoskeletal: No Clubbing, No Cyanosis, No Edema and Other (Left foot: Dressing in place that is clean/dry/intact.)
Neuro: Awake, AO x 3 and Nonfocal/Grossly Intact
Hematologic / Lymphatic: No Lymphadenopathy
Psych: Calm
Data Reviewed
-
Labs: Labs Reviewed by me and Discussed with Physician
Old Records: Reviewed
[2025-05-11] MEDS: LANOXIN 125 MCG PO (11:02)
[2025-05-11 11:57] LABS: Glucose - Point of Care 134 mg/dl (70-99)
[2025-05-11 15:10] VITALS: BP 119/61; BP 130/66; PULSE 73; PULSE 85
[2025-05-11 16:21] LABS: Glucose - Point of Care 194 mg/dl (70-99)
[2025-05-11] MEDS: NOVOLOG FLEXPEN-LOW RESISTANCE 1 UNITS SC (16:28)
[2025-05-11 21:12] LABS: Glucose - Point of Care 242 mg/dl (70-99)
[2025-05-11] MEDS: LIPITOR 80 MG PO (22:24)
[2025-05-11 23:31] VITALS: BP 137/74
[2025-05-12] MEDS: ZOSYN 50 IV ×4 (05:02→23:09)
[2025-05-12 06:46] LABS: Hematocrit 36.1 % (39.0-52.0); Hemoglobin 12.3 g/dL (13.0-18.0); Mean Corp Hgb Conc. 34.1 g/dL (33.0-37.0); Mean Corpuscular Volume 87.0 fL (80.0-94.0); Nucleated Red Blood Cells % 0 % (-); Platelet Count 323 10^3/uL (130-400); Red Cell Dist. Width 13.1 % (11.5-14.5)
[2025-05-12 07:00] VITALS: BP 127/67
[2025-05-12 07:06] LABS: Glucose - Point of Care 165 mg/dl (70-99)
[2025-05-12 07:18] LABS: Blood Urea Nitrogen 18 mg/dl (9-20); Calcium 8.2 mg/dl (8.4-10.2); Carbon Dioxide 28 mmol/L (22-30); Chloride 96 mmol/L (98-107); Estimated Creatinine Clearance 77 ml/min; Glucose 159 mg/dl (70-99); Magnesium 1.7 mg/dl (1.6-2.3); Potassium 4.4 mmol/L (3.5-5.1); Sodium 131 mmol/L (135-145); eGFR > 60.00
--- NOTE | 2025-05-12 07:45 | W.PN.HOSP.TC ---
Today's Communication/Plan
-
OR for further debridement versus closure tomorrow 05/13/2025
Assessment / Plan
Assessment / Plan
This is a 74-year-old male with a past medical history of type 2 diabetes mellitus, severe distal small vessel obliterative PAD, right BKA, hypertension who presented to the ED with gangrene of the left great toe. Patient states that he had a
blister to the left great toe for several months, and has been increasing in size swelling and pain since. He was seen by vascular surgery Dr. Church today and was sent to the ER for IV antibiotics and possible admission. Patient denies fever, chills
or any other symptoms.
XR left foot: Some suspected cortical lucency at least along the distal tip of the distal phalanx of left great toe, mildly suspicious for osteomyelitis.
Assessment/plan:
# Left great toe gangrene without systemic illness
# History of severe distal small vessel obliterative PAD
# History of right BKA/ by Dr. Church
Wound culture 05/08/25 polymicrobial.
� S/p left open hallux amputation 05/08/24 with application of negative pressure wound therapy- dressing change 05/10/25.
� Continue Zosyn, Vanco was discontinued based on cultures. Infectious disease following.
� Vascular surgery saw and signed off. Failed Limflow 05/09/25, will reattempt in 2 weeks after outpatient reassessment.
� Continue Plavix/Eliquis.
� Podiatry consulted and following. OR on 05/13/25 to reevaluate on for potential closure vs further amputation with high risk that it will fail given failed vascular procedure.
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
�Na 135 on 05/10/25, decreased to 133 today 05/11/25.
�Trend BMP.
# Type 2 diabetes mellitus
� HbA1c 8.4% 05/08/25
� Increased to Lantus 55 units. AC Novolog 12 units with low corrective insulin. Farxiga and Metformin resumed.
� DM SWEETBREAD TRIMMER following.
# Chronic hypotension
� Continue midodrine 5 Mg p.o. daily.
# Hyperlipidemia
� Continue statin.
# Mild hyponatremia
�133 today 05/08/2025, will continue to trend BMP.
#Obesity due to excess calories
DVT prophylaxis: Heparin
CODE STATUS: Full
Anticipated Discharge: > 48 hours
Subjective/Interval History
-
Date of Service: May 12, 2025
Patient feels well. He states his leg pain/calf pain is improved from yesterday. No new complaints including shortness of breath or chest pain.
Objective Data
-
Labs:
Laboratory Results
05/12/25
05:52
WBC 14.1 H
Hgb 12.3 L
Hct 36.1 L
Plt Count 323
Sodium 131 L
Potassium 4.4
Chloride 96 L
Carbon Dioxide 28
BUN 18
Creatinine 1.0
Glucose 159 H
Calcium 8.2 L
Vital Signs:
Vital Signs
Temp Pulse Resp BP Pulse Ox
99.1 F 82 18 137/74 93
05/11/25 23:31 05/11/25 23:31 05/11/25 23:31 05/11/25 23:31 05/11/25 23:31
I&O
05/11/25 05/12/25 05/13/25
06:59 06:59 06:59
Intake Total 940 / 940 280 / 280
Output Total 1750 / 1750 3765 / 3765
Balance -810 / -810 -3485 / -3485
Review of Systems
-
History Source: Patient
Constitutional: Reports No Symptoms
EENT: Reports No Symptoms Reported
Respiratory: Reports No Symptoms
Cardiac: Reports No Symptoms
Abdomen/GI: Reports No Symptoms
Breast: Reports No Symptoms
Genitourinary: Reports No Symptoms
Musculoskeletal: Reports Other (Left calf pain, left foot pain)
Neuro: Reports No Symptoms
Endocrine: Reports No Symptoms
Hematologic / Lymphatic: Reports No Symptoms
Physical Exam
-
General: Well Developed, Well Nourished and No Apparent Distress
HEENT: Normocephalic, Atraumatic, Moist Mucous Membranes and Anicteric
Respiratory: Clear to Auscultation
Cardiac: Regular Rhythm and S1/S2
GI: Soft, Nontender, Nondistended and Normal Bowel Sounds
Musculoskeletal: No Clubbing, No Cyanosis, No Edema and Other (Left foot: Dressing in place that is clean/dry/intact.)
Neuro: Awake, AO x 3 and Nonfocal/Grossly Intact
Hematologic / Lymphatic: No Lymphadenopathy
Psych: Calm
Data Reviewed
-
Labs: Labs Reviewed by me and Discussed with Physician
Old Records: Reviewed
[2025-05-12] MEDS: NOVOLOG FLEXPEN-LOW RESISTANCE 1 UNITS SC (08:21)
[2025-05-12] MEDS: NOVOLOG FLEXPEN 12 UNITS SC ×3 (08:21→17:55)
[2025-05-12] MEDS: ROXICODONE 5 MG PO ×3 (08:22→21:18)
[2025-05-12] MEDS: LANTUS 0.55 UNITS SC (08:22)
[2025-05-12] MEDS: CYMBALTA DELAYED RELEASE 60 MG PO (08:23)
[2025-05-12] MEDS: ELIQUIS 5 MG PO ×2 (08:23→22:08)
[2025-05-12] MEDS: PLAVIX 75 MG PO (08:23)
[2025-05-12] MEDS: NEURONTIN 300 MG PO ×3 (08:23→21:15)
--- NOTE | 2025-05-12 09:32 | W.PN.UPDATE ---
Update Note
Progress Note Update
I saw and evaluated the patient. I reviewed the resident�s note and agree with findings and plan as documented in the resident�s note.
No new complaints.
Gen: NAD, AAOx3.
Eyes: EOMI, PERRLA, no scleral icterus.
Neck: supple.
CV: remains RRR, +S1/S2, no m/r/g.
Resp: CTAB anteriorly, no rales, wheezes, or rhonchi.
Abd: remains +BS, soft, NT, ND
Skin: No rashes. remains L foot with C/D/I dressing with wound vac in place
Neuro: CN 2-12 intact, non-focal.
Psych: Normal mood and affect.
05/07/25 16:51 Blood/Venous Blood Culture - Preliminary
No Growth in 4 days- Final report to follow
05/07/25 16:54 Blood/Venous Blood Culture - Preliminary
No Growth in 4 days- Final report to follow
05/08/25 16:53 Toe Wound Culture - Final
Klebsiella oxytoca
Providencia alcalfaciens
Enterococcus faecalis
05/08/25 16:53 Toe Gram Stain - Final
05/07/25 16:51 Toe Wound Culture - Final
Klebsiella oxytoca
Providencia alcalfaciens
Enterococcus faecalis
05/07/25 16:51 Toe Gram Stain - Final
05/08/25 05:33 Nose MRSA Screen - Final
No Methicillin Resistant Staphylococcus aureus isolated.
L foot Xray: Some suspected cortical lucency at least along the distal tip of the distal phalanx of left great toe, at least suspicious for osteomyelitis.
Infected L great toe:
-underlying severe distal small vessel obliterative PAD
-h/o R BKA 01/13/2023 (Dr Church)
-s/p L open hallux amputation, application of NPWT on 05/08/25
-BCx NGTD, WCx polymicrobial as above
-cont Zosyn as per ID
-05/10/25 vascular procedure: 1. Duplex assisted cannulation of left lateral plantar vein. Venography of foot. 2. Duplex assisted cannulation of left posterior tibial vein. Ascending venogram left calf.
-cont Plavix/Eliquis
-vascular saw in c/s and has signed off. For outpt reattempt at Limflow after infection improved.
-for OR 05/13/25 (closure vs further debridement)
DM2:
-a1c 8.4%
-cont Lantus 55U/premeal 12U
-high-res SSI
-diabetes RING CONDUCTOR following
Other problems:
Hyponatremia, mild
Chronic hypotension: cont Midodrine
HLD: cont statin
Obesity due to excess calories
FULL/Heparin
[2025-05-12 11:12] LABS: Glucose - Point of Care 129 mg/dl (70-99)
[2025-05-12] MEDS: NOVOLOG FLEXPEN-HIGH RESISTANCE SC (12:35)
[2025-05-12] MEDS: LANOXIN 125 MCG PO (12:44)
[2025-05-12] MEDS: FLUSH (NSS) 1 FLUSH IV (12:45)
[2025-05-12 15:00] VITALS: BP 108/60
[2025-05-12 15:30] VITALS: BP 108/60
--- NOTE | 2025-05-12 15:55 | PTCARENOTE ---
Pt AAO x3, [place]; OOB to chair with assist x2/walker- weight bearing Lt heel only; remigio well. VSS. On room air- pulse ox 97%. Abd obese, soft, remigio PO well. Voids clear yellow urine in urinal. Lt foot dsg D/I' wound VAC @ 125 mm/HG intact; patent
scanty amts light serosanguinous drainage in tubing only. Resting in bed at present. Will continue to monitor.
[2025-05-12 16:40] LABS: Glucose - Point of Care 226 mg/dl (70-99)
[2025-05-12] MEDS: NOVOLOG FLEXPEN-HIGH RESISTANCE 4 UNITS SC (17:56)
[2025-05-12] MEDS: LIPITOR 80 MG PO (21:15)
[2025-05-12 21:24] LABS: Glucose - Point of Care 190 mg/dl (70-99)
--- NOTE | 2025-05-12 22:07 | W.PN.UPDATE ---
Update Note
Progress Note Update
Advised by Podiatry to hold am eliquis dose prior to OR. Restart when appropriate post op
[2025-05-12 23:18] VITALS: BP 133/66
[2025-05-13] VITALS (11 sets, daily range): BP systolic 109–134; BP diastolic 59–84; PULSE 61–80
[2025-05-13 05:16] LABS: Glucose - Point of Care 196 mg/dl (70-99)
[2025-05-13] MEDS: ROXICODONE 5 MG PO ×4 (05:22→21:35)
[2025-05-13] MEDS: ZOSYN 50 IV ×3 (05:22→17:09)
[2025-05-13] MEDS: NOVOLOG FLEXPEN-HIGH RESISTANCE 2 UNITS SC ×2 (05:23→12:04)
--- NOTE | 2025-05-13 07:30 | PN.DE.MGMTRT ---
Insulin Management
- -
05/13/2025 Diabetes Management Follow up
Patient admitted 05/07 with blisters and pain L great toe. Sent from Dr. Church's office for antibiotics and vascular procedure. PMH RBKA, HTN, severe distal small vessel obliterated PAD, diabetes, [place] 1 month ago. Prior to admission chart notes
patient was taking detemir 68 units daily with 14 units NovoLog AC , Jardiance 25 mg daily and metformin 1000 BID. A1C is 8.4%, cr 1.1, eGFR > 60.
Patient for OR today, currently NPO.
Over the weekend patient received Lantus 55 units in AM and AC NovoLog 12 units with low corrective insulin did not receive Farxiga and Metformin.
Fasting glucose this AM 196. Patient NPO, to receive corrective insulin only till after OR.
Discussed with nurse. Will cont to follow
Diabetes History
- -
Type of Diabetes: 2 requiring insulin
Pre-Admission Diabetes Regimen
Lab Results
Hemoglobin A1c 8.4 % (4.0-5.6) H 05/08/25 06:07
Insulin Pump Settings
IP Diabetes Regimen
05/12/25 05/12/25 05/12/25
11:11 16:39 21:22
POC Glucose 129 H 226 H 190 H
05/13/25
05:15
POC Glucose 196 H
Meal type: Dinner
Meal type: Lunch
Meal type: Breakfast
Amount consumed: 100%
Amount consumed: 75%
Amount consumed: 90%
Patient Education
[2025-05-13] MEDS: NOVOLOG FLEXPEN SC ×3 (07:35→17:08)
[2025-05-13 07:39] LABS: Hematocrit 35.8 % (39.0-52.0); Hemoglobin 12.1 g/dL (13.0-18.0); Mean Corp Hgb Conc. 33.8 g/dL (33.0-37.0); Mean Corpuscular Volume 87.7 fL (80.0-94.0); Nucleated Red Blood Cells % 0 % (-); Platelet Count 366 10^3/uL (130-400); Red Cell Dist. Width 13.0 % (11.5-14.5)
[2025-05-13 07:52] LABS: Glucose - Point of Care 194 mg/dl (70-99)
[2025-05-13 08:12] LABS: Blood Urea Nitrogen 19 mg/dl (9-20); Calcium 8.1 mg/dl (8.4-10.2); Carbon Dioxide 28 mmol/L (22-30); Chloride 93 mmol/L (98-107); Estimated Creatinine Clearance 70 ml/min; Glucose 162 mg/dl (70-99); Magnesium 1.8 mg/dl (1.6-2.3); Potassium 4.2 mmol/L (3.5-5.1); Sodium 129 mmol/L (135-145); eGFR > 60.00
[2025-05-13] MEDS: CYMBALTA DELAYED RELEASE 60 MG PO (08:28)
[2025-05-13] MEDS: NEURONTIN 300 MG PO ×3 (08:28→21:52)
[2025-05-13] MEDS: LANTUS 0.55 UNITS SC (08:29)
[2025-05-13] MEDS: PLAVIX 75 MG PO (08:30)
[2025-05-13 08:36] LABS: Cortisol, Random 16.1 ug/dl
--- NOTE | 2025-05-13 10:20 | W.PN.ID1 ---
Date of Service
Date of Service: May 13, 2025
Today's Communication
See below.
Assessment / Plan
# Left hallux gangrene and osteo
# Severe PAD, not amenable to revascularization
# Leukocytosis, trended up
# Post-op fever, resolved
# DM
# hx R BKA
- 05/08 s/p left great toe open amputation
OR cx: E. faecalis, Providencia, Klebsiella oxytoca
- 05/09 failed attempt Limflow. Will re-attempt in 2 weeks, per vascular.
- For I+D and delayed primary closure today , per Podiatry.
- Hoping for surgical cure
- Continue Zosyn for now.
- If surgical cure, at time of dc, transition to Augmentin 875mg po bid and cipro 500 po bid x 2 weeks. Check QTc.
- Trend wbc.
Chief Complaint
-: Other (toe gangrene)
Subjective / Review of Systems
Going to OR today.
Vital Signs / Physical Exam
Vital Signs
Vital Signs
Temp Pulse Resp BP Pulse Ox
98.2 F 84 18 117/69 94
05/13/25 07:25 05/13/25 08:29 05/13/25 07:25 05/13/25 08:29 05/13/25 07:25
Physical Exam
Constitutional: No Acute Distress and Comfortable
Cardiovascular: Regular Rate and S1/S2
Pulmonary: Clear
Gastrointestinal: Soft, Non Tender and Non Distended
Extremities: Negative Edema
Wound: Other (Right hallux amp site with wound vac in place. )
Neurological: AO x 3
Objective Data
Lab Data
Lab Results
05/13/25 06:08
05/13/25 06:08
Estimated Creat Clear 70 ml/min 05/13/25 06:08
Lactic Acid Cancelled 05/07/25 20:30
Total Bilirubin 1.2 mg/dl (0.2-1.3) 05/07/25 14:25
AST 30 U/L (17-59) 05/07/25 14:25
ALT 31 U/L (0-50) 05/07/25 14:25
Alkaline Phosphatase 127 U/L (38-126) H 05/07/25 14:25
Most recent labs reviewed.
Micro Results:
05/07/25 16:51 Blood Culture - Final
Blood/Venous No Growth - Final Report
05/07/25 16:54 Blood Culture - Final
Blood/Venous No Growth - Final Report
05/08/25 16:53 Wound Culture - Final
Toe Klebsiella oxytoca
Providencia alcalfaciens
Enterococcus faecalis
Gram Stain - Final
05/07/25 16:51 Wound Culture - Final
Toe Klebsiella oxytoca
Providencia alcalfaciens
Enterococcus faecalis
Gram Stain - Final
05/08/25 05:33 MRSA Screen - Final
Nose No Methicillin Resistant Staphylococcus aureus isolated.
05/08/25 Foot XRAY: Surgical amputation of the phalanges of the left great toe in the interval since study of preceding day.
05/07/25 Foot XRAY: Some suspected cortical lucency at least along the distal tip of the distal phalanx of left great toe, at least suspicious for osteomyelitis.
[2025-05-13] MEDS: LANOXIN 125 MCG PO (11:28)
[2025-05-13 12:00] LABS: Glucose - Point of Care 178 mg/dl (70-99)
--- NOTE | 2025-05-13 14:26 | CM ---
Pt for surgery today.
Will need PT OT orders written postop.
Pt has wound vac. Currently on IV antibiotics.
Pt with right leg prosthesis, wc,walker,cane at home
Pt lives alone. Children live close.
Pt given Pac data for SNF if that is rehab recommendation
PLAN Home with VN VS SNF
[2025-05-13 17:05] LABS: Glucose - Point of Care 123 mg/dl (70-99)
[2025-05-13] MEDS: NOVOLOG FLEXPEN-HIGH RESISTANCE 1 UNITS SC (17:09)
--- NOTE | 2025-05-13 18:13 | W.PN.HOSP.TC ---
Today's Communication/Plan
-
2 OR for additional I&D.
Antibiotics as per ID
Assessment / Plan
Assessment / Plan
This is a 74-year-old male with a past medical history of type 2 diabetes mellitus, severe distal small vessel obliterative PAD, right BKA, hypertension who presented to the ED with gangrene of the left great toe. Patient states that he had a
blister to the left great toe for several months, and has been increasing in size swelling and pain since. He was seen by vascular surgery Dr. Church today and was sent to the ER for IV antibiotics and possible admission. Patient denies fever, chills
or any other symptoms.
XR left foot: Some suspected cortical lucency at least along the distal tip of the distal phalanx of left great toe, mildly suspicious for osteomyelitis.
Assessment/plan:
# Left great toe gangrene without systemic illness
# History of severe distal small vessel obliterative PAD
# History of right BKA/ by Dr. Church
Wound culture 05/08/25 polymicrobial.
� S/p left open hallux amputation 05/08/24 with application of negative pressure wound therapy- dressing change 05/10/25.
� Continue Zosyn, Vanco was discontinued based on cultures. Infectious disease following.
� Vascular surgery saw and signed off. Failed Limflow 05/09/25, will reattempt in 2 weeks after outpatient reassessment.
� Continue Plavix/Eliquis.
� Podiatry consulted and following. OR on 05/13/25 to reevaluate on for potential closure vs further amputation with high risk that it will fail given failed vascular procedure.
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
�Na 135 on 05/10/25, decreased to 133 today 05/11/25.
�Trend BMP.
# Type 2 diabetes mellitus
� HbA1c 8.4% 05/08/25
� Increased to Lantus 55 units. AC Novolog 12 units with low corrective insulin. Farxiga and Metformin resumed.
� DM CARPENTER MATE following.
# Chronic hypotension
� Continue midodrine 5 Mg p.o. daily.
# Hyperlipidemia
� Continue statin.
# Mild hyponatremia
�133 today 05/08/2025, will continue to trend BMP.
#Obesity due to excess calories
DVT prophylaxis: Heparin
CODE STATUS: Full
Anticipated Discharge: > 48 hours
Subjective/Interval History
-
Date of Service: May 13, 2025
Objective Data
-
Labs:
Laboratory Results
05/13/25
06:08
WBC 14.9 H
Hgb 12.1 L
Hct 35.8 L
Plt Count 366
Sodium 129 L
Potassium 4.2
Chloride 93 L
Carbon Dioxide 28
BUN 19
Creatinine 1.1
Glucose 162 H
Calcium 8.1 L
Vital Signs:
Vital Signs
Temp Pulse Resp BP Pulse Ox
98.2 F 61 18 120/59 97
05/13/25 15:22 05/13/25 15:22 05/13/25 15:22 05/13/25 15:22 05/13/25 15:22
I&O
05/12/25 05/13/25 05/14/25
06:59 06:59 06:59
Intake Total 280 / 280 2420 / 2420
Output Total 3765 / 3765 1775 / 1775
Balance -3485 / -3485 645 / 645
Physical Exam
-
General: Well Developed and No Apparent Distress
HEENT: Normocephalic, Atraumatic and Moist Mucous Membranes
Respiratory: Clear to Auscultation
Cardiac: Regular Rhythm and S1/S2; Negative Murmur, Rub or Gallop
GI: Soft, Nontender, Nondistended and Normal Bowel Sounds; Negative Organomegaly
Rectal: Deferred by Provider
Musculoskeletal: No Clubbing, No Cyanosis and No Edema
Skin: Negative Rash
Neuro: Nonfocal/Grossly Intact
--- NOTE | 2025-05-13 19:43 | W.PN.UPDATE ---
Update Note
Progress Note Update
74M s/p 1st MT head resection packed open
- recommend proximal LLE amputation due to extent of necrotic plantar tissue
-- discussed w/ family
- NWB LLE
- continue abx
- will reassess in AM
[2025-05-13 19:50] LABS: Glucose - Point of Care 98 mg/dl (70-99)
[2025-05-13] MEDS: DILAUDID 0.25 MG IV (20:20)
--- NOTE | 2025-05-13 21:50 | PTCARENOTE ---
Received pt from PACU- s/p 1st MT head resection of L toe. Pt is AAOx3, drowsy, VSS, and complaining of 8/10 pain. RN given Myah 5mg. Pt has a present L popliteal pulse via doppler. Dressing is CDI. Pt call zhu within reach.
[2025-05-13] MEDS: LIPITOR 80 MG PO (21:52)
[2025-05-13 22:04] LABS: Glucose - Point of Care 108 mg/dl (70-99)
[2025-05-14] VITALS (7 sets, daily range): BP systolic 97–154; BP diastolic 58–90; PULSE 78–89
[2025-05-14] MEDS: NOVOLOG FLEXPEN-HIGH RESISTANCE SC (00:06)
[2025-05-14] MEDS: SENOKOT-S 1 TABLET PO (00:09)
[2025-05-14] MEDS: ZOSYN 50 IV ×4 (00:09→17:49)
[2025-05-14] MEDS: ROXICODONE 5 MG PO ×4 (03:28→20:56)
[2025-05-14] MEDS: TYLENOL 650 MG PO (05:46)
[2025-05-14 06:39] LABS: Glucose - Point of Care 141 mg/dl (70-99)
[2025-05-14 07:57] LABS: Glucose - Point of Care 151 mg/dl (70-99)
[2025-05-14] MEDS: NOVOLOG FLEXPEN-MODERATE RESISTANCE 1 UNITS SC (08:13)
[2025-05-14] MEDS: NOVOLOG FLEXPEN 12 UNITS SC ×3 (08:13→16:57)
[2025-05-14] MEDS: FARXIGA 10 MG PO (08:14)
[2025-05-14] MEDS: LANTUS 0.55 UNITS SC (08:14)
[2025-05-14] MEDS: GLUCOPHAGE 1000 MG PO ×2 (08:14→16:44)
[2025-05-14] MEDS: NEURONTIN 300 MG PO ×3 (08:15→22:11)
[2025-05-14] MEDS: CYMBALTA DELAYED RELEASE 60 MG PO (08:15)
[2025-05-14] MEDS: PLAVIX 75 MG PO (08:15)
--- NOTE | 2025-05-14 09:15 | W.PN.UPDATE ---
Update Note
Progress Note Update
74M s/p 1st MT head resection packed open. Doing well this AM, offers no new complaints. CFT and sensation consistent with baseline.
- recommend proximal LLE amputation due to extent of necrotic plantar tissue
-- discussed w/ family
-- discussed w/ patient this AM
- NWB LLE
- continue abx
- will follow
--- NOTE | 2025-05-14 10:35 | W.PN.UPDATE ---
Update Note
Progress Note Update
Seen and evaluated. Foot examined. Packing removed. Podiatry notes reviewed. His wound is currently clean. There is no purulence or signs of infection. The skin surrounding is warm and pink. I think he has adequate perfusion likely to heal a
TMA. However I think it may be worthwhile trialing to see if veins dilate and he would be a candidate for repeated attempt at LimFlow. We are really pushing for limb salvage given his contralateral amputation, and therefore difficulty with
ambulation if he is a bilateral lower extremity amputee. In addition that bears significant impact on overall quality of life as well as long-term morbidity/mortality. Ideally would favor attempts at limb salvage. Therefore we will obtain repeat
LimFlow ultrasound studies to see if the veins have dilated. If that is the case, then likely would favor waiting an additional week or so and then bringing back for attempted repeat procedure (would look with ultrasound myself prior to having him
go back to the OR as well). And if doable, would proceed with the procedure and then assess wound healing (would be a long-term chronic problem). If however procedure not doable, then likely would do a TMA at that same time (open versus closed).
--- NOTE | 2025-05-14 10:47 | CM ---
Postop today.
Requested postop PT OT orders from .
Pt has wound vac. Currently on IV antibiotics.
Pt with right leg prosthesis, wc,walker,cane at home
Pt given Pac data for SNF if that is rehab recommendation
PLAN Depends on PT evals either Home with VN VS SN
--- NOTE | 2025-05-14 11:21 | PN.DE.MGMTRT ---
Insulin Management
- -
05/14/2025 Diabetes Management Follow up
Patient admitted 05/07 with blisters and pain L great toe. Sent from Dr. Church's office for antibiotics and vascular procedure. PMH RBKA, HTN, severe distal small vessel obliterated PAD, diabetes, [place] 1 month ago. Prior to admission chart notes
patient was taking detemir 68 units daily with 14 units NovoLog AC , Jardiance 25 mg daily and metformin 1000 BID. A1C is 8.4%, cr 1.1, eGFR > 60.
Patient is awake alert and oriented able to discuss diabetes care. [facility] He used to take levemir 68 units daily but was recently switched, he thinks to lantus.
POD 1 s/p 1st metatarsal head resection. Evaluated by Dr. Church, patient to have further studies for blood flow. Fasting glucose today 141. Will make no change to current regimen Lantus 55 units in AM with novolog 12 units AC, will reduce high
corrective to moderate corrective. Will resume farxiga 10 mg daily (takes Jardiance 25 mg daily) and metformin 1000 mg BID.
Discussed with nurse. Will cont to follow
Diabetes History
- -
Type of Diabetes: 2 requiring insulin
Pre-Admission Diabetes Regimen
Lab Results
Hemoglobin A1c 8.4 % (4.0-5.6) H 05/08/25 06:07
Insulin Pump Settings
IP Diabetes Regimen
05/13/25 05/13/25 05/13/25
11:59 17:04 19:49
POC Glucose 178 H 123 H 98
05/13/25 05/14/25 05/14/25
22:02 06:38 07:42
POC Glucose 108 H 141 H 151 H
Meal type: Breakfast
Amount consumed: 100%
Patient Education
[2025-05-14 12:02] LABS: Glucose - Point of Care 207 mg/dl (70-99)
[2025-05-14] MEDS: LANOXIN 125 MCG PO (12:13)
[2025-05-14] MEDS: FLUSH (NSS) 1 FLUSH IV ×2 (12:14→17:49)
[2025-05-14] MEDS: NOVOLOG FLEXPEN-MODERATE RESISTANCE 3 UNITS SC ×2 (12:14→16:58)
--- NOTE | 2025-05-14 12:36 | W.PN.ID1 ---
Date of Service
Date of Service: May 14, 2025
Today's Communication
See below.
Assessment / Plan
# Left hallux gangrene and osteo
# Severe PAD, not amenable to revascularization
# Leukocytosis,
# Post-op fever, resolved
# DM
# hx R BKA
- 05/08 s/p left great toe open amputation
OR cx: E. faecalis, Providencia, Klebsiella oxytoca
- 05/09 failed attempt Limflow.
-05/13/25 Left 1st ray incision wtih debridement to level of bone. Noted to have significant purulence and necrotizing deep tissue, poor perfusion, foot deemed nonsalvageable per Podiatry; BKA recommended.
- Vascular trying to salvage limb. Will attempt at Limflow in 1 week; if not successful, then TMA.
- Continue Zosyn (d8) while in patient.
If dc home, transition to Augmentin 875mg po bid and cipro 500 po bid until repeat Limflow procedure.
If repeat Limflow procedure successful without need for TMA, will treat residual foot osteo with IV abx x 6 weeks.
- Trend wbc.
Chief Complaint
-: Other (toe gangrene)
Vital Signs / Physical Exam
Vital Signs
Vital Signs
Temp Pulse Resp BP Pulse Ox
97.5 F 80 16 112/60 97
05/14/25 11:00 05/14/25 12:13 05/14/25 11:00 05/14/25 11:00 05/14/25 11:00
Physical Exam
Constitutional: No Acute Distress and Comfortable
Cardiovascular: Regular Rate and S1/S2
Pulmonary: Clear
Gastrointestinal: Soft, Non Tender and Non Distended
Extremities: Negative Edema
Wound: Other (Right foot dressing dry)
Neurological: AO x 3
Objective Data
Lab Data
Lab Results
05/13/25 06:08
05/13/25 06:08
Estimated Creat Clear 70 ml/min 05/13/25 06:08
Lactic Acid Cancelled 05/07/25 20:30
Total Bilirubin 1.2 mg/dl (0.2-1.3) 05/07/25 14:25
AST 30 U/L (17-59) 05/07/25 14:25
ALT 31 U/L (0-50) 05/07/25 14:25
Alkaline Phosphatase 127 U/L (38-126) H 05/07/25 14:25
Most recent labs reviewed.
Micro Results:
05/13/25 19:20 Wound Culture - Pending
Foot - Left Gram Stain - Preliminary
05/13/25 19:20 Anaerobic Culture - Pending
Wound-Deep
05/07/25 16:51 Blood Culture - Final
Blood/Venous No Growth - Final Report
05/07/25 16:54 Blood Culture - Final
Blood/Venous No Growth - Final Report
05/08/25 16:53 Wound Culture - Final
Toe Klebsiella oxytoca
Providencia alcalfaciens
Enterococcus faecalis
Gram Stain - Final
05/07/25 16:51 Wound Culture - Final
Toe Klebsiella oxytoca
Providencia alcalfaciens
Enterococcus faecalis
Gram Stain - Final
05/08/25 05:33 MRSA Screen - Final
Nose No Methicillin Resistant Staphylococcus aureus isolated.
05/08/25 Foot XRAY: Surgical amputation of the phalanges of the left great toe in the interval since study of preceding day.
05/07/25 Foot XRAY: Some suspected cortical lucency at least along the distal tip of the distal phalanx of left great toe, at least suspicious for osteomyelitis.
--- NOTE | 2025-05-14 14:55 | W.PN.HOSP.TC ---
Today's Communication/Plan
-
Continue wound care and IV antibiotics
Assessment / Plan
Assessment / Plan
This is a 74-year-old male with a past medical history of type 2 diabetes mellitus, severe distal small vessel obliterative PAD, right BKA, hypertension who presented to the ED with gangrene of the left great toe. Patient states that he had a
blister to the left great toe for several months, and has been increasing in size swelling and pain since. He was seen by vascular surgery Dr. Church today and was sent to the ER for IV antibiotics and possible admission. Patient denies fever, chills
or any other symptoms.
XR left foot: Some suspected cortical lucency at least along the distal tip of the distal phalanx of left great toe, mildly suspicious for osteomyelitis.
Assessment/plan:
# Left great toe gangrene without systemic illness
# History of severe distal small vessel obliterative PAD
# History of right BKA/ by Dr. Church
Wound culture 05/08/25 polymicrobial.
� S/p left open hallux amputation 05/08/24 with application of negative pressure wound therapy- dressing change 05/10/25.
- Status post first metatarsal head resection packed open on 05/13. Continue wound care
� Continue Zosyn, Vanco was discontinued based on cultures. Infectious disease following.
� Vascular surgery saw and signed off. Failed Limflow 05/09/25, will reattempt in 2 weeks after outpatient reassessment.
� Continue Plavix/Eliquis.
� Podiatry consulted and following. OR on 05/13/25 to reevaluate on for potential closure vs further amputation with high risk that it will fail given failed vascular procedure.
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
�Na 135 on 05/10/25, decreased to 133 today 05/11/25.
�Trend BMP.
# Type 2 diabetes mellitus
� HbA1c 8.4% 05/08/25
� Increased to Lantus 55 units. AC Novolog 12 units with low corrective insulin. Farxiga and Metformin resumed.
� DM CLOTH STRETCHER following.
# Chronic hypotension
� Continue midodrine 5 Mg p.o. daily.
# Hyperlipidemia
� Continue statin.
# Mild hyponatremia
�133 today 05/08/2025, will continue to trend BMP.
#Obesity due to excess calories
DVT prophylaxis: Heparin
CODE STATUS: Full
Anticipated Discharge: > 48 hours
Subjective/Interval History
-
Date of Service: May 14, 2025
Objective Data
-
Vital Signs:
Vital Signs
Temp Pulse Resp BP Pulse Ox
97.5 F 80 16 112/60 97
05/14/25 11:00 05/14/25 12:13 05/14/25 11:00 05/14/25 11:00 05/14/25 11:00
I&O
05/13/25 05/14/25 05/15/25
06:59 06:59 06:59
Intake Total 2420 / 2420 2240 / 2240
Output Total 1775 / 1775 400 / 400
Balance 645 / 645 1840 / 1840
Physical Exam
-
General: Well Developed and No Apparent Distress
HEENT: Normocephalic, Atraumatic and Moist Mucous Membranes
Respiratory: Clear to Auscultation
Cardiac: Regular Rhythm and S1/S2; Negative Murmur, Rub or Gallop
GI: Soft, Nontender, Nondistended and Normal Bowel Sounds; Negative Organomegaly
Rectal: Deferred by Provider
Musculoskeletal: No Clubbing, No Cyanosis and No Edema
Skin: Negative Rash
Neuro: Nonfocal/Grossly Intact
--- NOTE | 2025-05-14 16:05 | PTCARENOTE ---
Pt AAO x3, LAKE; refused OOB to chair activity this shift. Pt able to stand with assist x2/walker to transfer to stretcher, tires easily. Weight bearing Lt heel during transfer. VSS. On room air- pulse ox 92%. Abd obese, soft, remigio PO well.
Voids in urinal without difficulty. Afebrile; skin warm, dry; Lt foot dsg/ORLY wrap D/I; pt instructed to keep LLE elevated on pillow. Resting in bed at present. Will continue to monitor.
[2025-05-14 16:54] LABS: Glucose - Point of Care 233 mg/dl (70-99)
[2025-05-14 21:21] LABS: Glucose - Point of Care 140 mg/dl (70-99)
[2025-05-14] MEDS: LIPITOR 80 MG PO (22:11)
[2025-05-15] MEDS: ZOSYN 50 IV ×5 (00:05→23:55)
[2025-05-15 07:26] LABS: Glucose - Point of Care 188 mg/dl (70-99)
[2025-05-15 07:30] VITALS: BP 117/65
[2025-05-15] MEDS: FARXIGA 10 MG PO (07:34)
[2025-05-15] MEDS: ROXICODONE 5 MG PO ×3 (07:34→23:54)
[2025-05-15] MEDS: CYMBALTA DELAYED RELEASE 60 MG PO (07:34)
[2025-05-15] MEDS: NOVOLOG FLEXPEN 12 UNITS SC (07:35)
[2025-05-15] MEDS: GLUCOPHAGE 1000 MG PO ×2 (07:35→16:55)
[2025-05-15] MEDS: NOVOLOG FLEXPEN-MODERATE RESISTANCE 1 UNITS SC (07:35)
[2025-05-15] MEDS: LANTUS 0.55 UNITS SC (07:35)
[2025-05-15] MEDS: NEURONTIN 300 MG PO ×3 (07:35→21:45)
[2025-05-15] MEDS: PLAVIX 75 MG PO (07:35)
[2025-05-15 07:44] LABS: Hematocrit 36.3 % (39.0-52.0); Hemoglobin 12.0 g/dL (13.0-18.0); Mean Corp Hgb Conc. 33.1 g/dL (33.0-37.0); Mean Corpuscular Volume 89.2 fL (80.0-94.0); Nucleated Red Blood Cells % 0 % (-); Platelet Count 377 10^3/uL (130-400); Red Cell Dist. Width 13.0 % (11.5-14.5)
[2025-05-15] MEDS: NOVOLOG FLEXPEN-LOW RESISTANCE SC ×2 (08:22→16:55)
[2025-05-15 08:24] LABS: Blood Urea Nitrogen 23 mg/dl (9-20); Calcium 7.9 mg/dl (8.4-10.2); Carbon Dioxide 28 mmol/L (22-30); Chloride 95 mmol/L (98-107); Estimated Creatinine Clearance 70 ml/min; Glucose 132 mg/dl (70-99); Potassium 4.7 mmol/L (3.5-5.1); Sodium 130 mmol/L (135-145); eGFR > 60.00
--- NOTE | 2025-05-15 10:48 | WOUNDNOTE ---
WON RN NOTE:Confirmed with nurse Annie wound vac remains off, placed in soiled utility rm for pickup. Paula Angel notified of d/c. Nurse will contact Sales Center Manager today to obtained further wound care orders for foot dressing and update work
list.
[2025-05-15 11:50] LABS: Glucose - Point of Care 150 mg/dl (70-99)
--- NOTE | 2025-05-15 11:51 | PN.DE.MGMTRT ---
Insulin Management
- -
05/15/2025 Diabetes Management Follow up
Patient admitted 05/07 with blisters and pain L great toe. Sent from Dr. Church's office for antibiotics and vascular procedure. PMH RBKA, HTN, severe distal small vessel obliterated PAD, diabetes, [place] 1 month ago. Prior to admission chart notes
patient was taking detemir 68 units daily with 14 units NovoLog AC , Jardiance 25 mg daily and metformin 1000 BID. A1C is 8.4%, cr 1.1, eGFR > 60.
Patient is awake alert and oriented able to discuss diabetes care. [facility] He used to take levemir 68 units daily but was recently switched, he thinks to lantus.
POD 2 s/p 1st metatarsal head resection. Evaluated by Dr. Church. Glucose range yesterday 141 to 233.
Fasting glucose today 188. Will continue Lantus 55 units in AM, increase novolog from 12 to 14 units AC, reduce moderate corrective to low. Will resume farxiga 10 mg daily (takes Jardiance 25 mg daily) and metformin 1000 mg BID.
Discussed with nurse. Will cont to follow
Diabetes History
- -
Type of Diabetes: 2 requiring insulin
Pre-Admission Diabetes Regimen
05/15/25
06:01
Creatinine 1.1
Lab Results
Hemoglobin A1c 8.4 % (4.0-5.6) H 05/08/25 06:07
Insulin Pump Settings
IP Diabetes Regimen
05/14/25 05/14/25 05/14/25
12:01 16:52 21:20
Glucose
POC Glucose 207 H 233 H 140 H
05/15/25 05/15/25 05/15/25
06:01 07:21 11:43
Glucose 132 H
POC Glucose 188 H 150 H
Meal type: Breakfast
Meal type: Dinner
Meal type: Lunch
Amount consumed: 100%
Amount consumed: 100%
Amount consumed: 100%
Patient Education
[2025-05-15] MEDS: NOVOLOG FLEXPEN-LOW RESISTANCE 1 UNITS SC (12:18)
[2025-05-15] MEDS: NOVOLOG FLEXPEN 14 UNITS SC ×2 (12:18→16:59)
[2025-05-15] MEDS: LANOXIN 125 MCG PO (12:18)
[2025-05-15] MEDS: MIRALAX 17 GRAMS PO (12:35)
--- NOTE | 2025-05-15 14:46 | W.PN.ID1 ---
Date of Service
Date of Service: May 15, 2025
Today's Communication
Continue Zosyn for now.
Assessment / Plan
# Left hallux gangrene and osteo
# Severe PAD, not amenable to revascularization
# Leukocytosis,
# Post-op fever, resolved
# DM
# hx R BKA
- 05/08 s/p left great toe open amputation
OR cx: E. faecalis, Providencia, Klebsiella oxytoca
- 05/09 failed attempt Limflow.
-05/13/25 Left 1st ray incision wtih debridement to level of bone. Noted to have significant purulence and necrotizing deep tissue, poor perfusion, foot deemed nonsalvageable per Podiatry; BKA recommended.
- Vascular trying to salvage limb. Will attempt at Limflow in 1 week; if not successful, then TMA.
- Continue Zosyn (d9) while in patient. Of note, antibiotic unlikely to reach therapeutic level at target site due to severe PAD.
If dc home, transition to Augmentin 875mg po bid and cipro 500 po bid until repeat Limflow procedure.
If repeat Limflow procedure successful without need for TMA, will treat residual foot osteo with IV abx x 6 weeks.
- Trend wbc.
Chief Complaint
-: Other (toe gangrene)
Subjective / Review of Systems
No complaints.
Vital Signs / Physical Exam
Vital Signs
Vital Signs
Temp Pulse Resp BP Pulse Ox
97.8 F 82 18 117/65 97
05/15/25 07:30 05/15/25 12:18 05/15/25 07:30 05/15/25 07:34 05/15/25 09:25
Physical Exam
Constitutional: No Acute Distress and Comfortable
Cardiovascular: Regular Rate and S1/S2
Pulmonary: Clear
Gastrointestinal: Soft, Non Tender and Non Distended
Extremities: Negative Edema
Wound: Other (Right foot dressing dry; remaining toes dusky appearing)
Neurological: AO x 3
Objective Data
Lab Data
Lab Results
05/15/25 06:01
05/15/25 06:01
Estimated Creat Clear 70 ml/min 05/15/25 06:01
Lactic Acid Cancelled 05/07/25 20:30
Total Bilirubin 1.2 mg/dl (0.2-1.3) 05/07/25 14:25
AST 30 U/L (17-59) 05/07/25 14:25
ALT 31 U/L (0-50) 05/07/25 14:25
Alkaline Phosphatase 127 U/L (38-126) H 05/07/25 14:25
Most recent labs reviewed.
Micro Results:
05/13/25 19:20 Anaerobic Culture - Preliminary
Wound-Deep Culture pending. Anaerobic cultures are examined after 3
days incubation. Additional information to follow.
05/13/25 19:20 Wound Culture - Preliminary
Foot - Left Gram negative bacilli
Gram Stain - Preliminary
05/07/25 16:51 Blood Culture - Final
Blood/Venous No Growth - Final Report
05/07/25 16:54 Blood Culture - Final
Blood/Venous No Growth - Final Report
05/08/25 16:53 Wound Culture - Final
Toe Klebsiella oxytoca
Providencia alcalfaciens
Enterococcus faecalis
Gram Stain - Final
05/07/25 16:51 Wound Culture - Final
Toe Klebsiella oxytoca
Providencia alcalfaciens
Enterococcus faecalis
Gram Stain - Final
05/08/25 05:33 MRSA Screen - Final
Nose No Methicillin Resistant Staphylococcus aureus isolated.
05/08/25 Foot XRAY: Surgical amputation of the phalanges of the left great toe in the interval since study of preceding day.
05/07/25 Foot XRAY: Some suspected cortical lucency at least along the distal tip of the distal phalanx of left great toe, at least suspicious for osteomyelitis.
Care Review
Plan reviewed with: Physician (Dr. Ortega)
[2025-05-15 14:59] VITALS: BP 117/59; PULSE 68; O2SAT 97
--- NOTE | 2025-05-15 15:18 | W.PN.UPDATE ---
Update Note
Progress Note Update
74M s/p 1st MT head resection packed open. Doing well today, saline packing changed, offers no new complaints. CFT and sensation consistent with baseline.
- will follow up vascular recommendations for Limflow next week
- saline packing EOD
- NWB LLE
- continue abx
- will follow
[2025-05-15 15:20] VITALS: BP 117/59
--- NOTE | 2025-05-15 15:23 | W.PN.HOSP.TC ---
Today's Communication/Plan
-
Wound care
IV antibiotics
Adjustment of diabetic regimen
Assessment / Plan
Assessment / Plan
This is a 74-year-old male with a past medical history of type 2 diabetes mellitus, severe distal small vessel obliterative PAD, right BKA, hypertension who presented to the ED with gangrene of the left great toe. Patient states that he had a
blister to the left great toe for several months, and has been increasing in size swelling and pain since. He was seen by vascular surgery Dr. Church today and was sent to the ER for IV antibiotics and possible admission. Patient denies fever, chills
or any other symptoms.
XR left foot: Some suspected cortical lucency at least along the distal tip of the distal phalanx of left great toe, mildly suspicious for osteomyelitis.
Assessment/plan:
# Left great toe gangrene without systemic illness
# History of severe distal small vessel obliterative PAD
# History of right BKA/ by Dr. Church
Wound culture 05/08/25 polymicrobial.
� S/p left open hallux amputation 05/08/24 with application of negative pressure wound therapy- dressing change 05/10/25.
- Status post first metatarsal head resection packed open on 05/13. Continue wound care
� Continue Zosyn, Vanco was discontinued based on cultures. Infectious disease following.
� Failed Limflow 05/09/25. Vascular surgery has been on board with planning attempt of repeat Limflow
� Continue Plavix/Eliquis.
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
�Na 135 on 05/10/25, decreased to 133 today 05/11/25.
�Trend BMP.
# Type 2 diabetes mellitus
� HbA1c 8.4% 05/08/25
Regimen has been adjusted.
Currently on Lantus 55/aspart 14 AC with addition of Farxiga and metformin.
# Chronic hypotension
� Continue midodrine 5 Mg p.o. daily.
# Hyperlipidemia
� Continue statin.
# Mild hyponatremia
�133 today 05/08/2025, will continue to trend BMP.
#Obesity due to excess calories
DVT prophylaxis: Heparin
CODE STATUS: Full
Anticipated Discharge: 24 - 48 hours
Subjective/Interval History
-
Date of Service: May 15, 2025
Objective Data
-
Labs:
Laboratory Results
05/15/25
06:01
WBC 14.3 H
Hgb 12.0 L
Hct 36.3 L
Plt Count 377
Sodium 130 L
Potassium 4.7
Chloride 95 L
Carbon Dioxide 28
BUN 23 H
Creatinine 1.1
Glucose 132 H
Calcium 7.9 L
Vital Signs:
Vital Signs
Temp Pulse Resp BP Pulse Ox
97.8 F 82 18 117/65 97
05/15/25 07:30 05/15/25 12:18 05/15/25 07:30 05/15/25 07:34 05/15/25 09:25
I&O
05/14/25 05/15/25 05/16/25
06:59 06:59 06:59
Intake Total 2240 / 2240 1360 / 1360
Output Total 400 / 400 1775 / 1775
Balance 1840 / 1840 -415 / -415
Physical Exam
-
General: Well Developed and No Apparent Distress
HEENT: Normocephalic, Atraumatic and Moist Mucous Membranes
Respiratory: Clear to Auscultation
Cardiac: Regular Rhythm and S1/S2; Negative Murmur, Rub or Gallop
GI: Soft, Nontender, Nondistended and Normal Bowel Sounds; Negative Organomegaly
Rectal: Deferred by Provider
Musculoskeletal: No Clubbing, No Cyanosis and No Edema
Skin: Negative Rash
Neuro: Nonfocal/Grossly Intact
[2025-05-15 16:42] LABS: Glucose - Point of Care 121 mg/dl (70-99)
[2025-05-15] MEDS: LIPITOR 80 MG PO (21:45)
[2025-05-15 23:20] VITALS: BP 127/96
[2025-05-16 01:49] LABS: Glucose - Point of Care 93 mg/dl (70-99)
[2025-05-16] MEDS: ZOSYN 50 IV ×4 (05:55→23:33)
[2025-05-16] MEDS: NEURONTIN 300 MG PO ×3 (07:37→21:44)
[2025-05-16] MEDS: PLAVIX 75 MG PO (07:37)
[2025-05-16] MEDS: CYMBALTA DELAYED RELEASE 60 MG PO (07:37)
[2025-05-16] MEDS: FARXIGA 10 MG PO (07:37)
[2025-05-16 07:38] LABS: Glucose - Point of Care 129 mg/dl (70-99)
[2025-05-16] MEDS: NOVOLOG FLEXPEN 14 UNITS SC ×3 (07:38→17:02)
[2025-05-16] MEDS: NOVOLOG FLEXPEN-LOW RESISTANCE SC ×3 (07:38→17:00)
[2025-05-16] MEDS: LANTUS 0.55 UNITS SC (07:38)
[2025-05-16] MEDS: ROXICODONE 5 MG PO ×3 (07:41→21:52)
[2025-05-16] MEDS: GLUCOPHAGE 1000 MG PO ×2 (07:41→16:04)
[2025-05-16 08:04] VITALS: BP 113/72
--- NOTE | 2025-05-16 11:18 | PN.DE.MGMTRT ---
Insulin Management
- -
05/16/2025 Diabetes Management Follow up
Patient admitted 05/07 with blisters and pain L great toe. Sent from Dr. Church's office for antibiotics and vascular procedure. PMH RBKA, HTN, severe distal small vessel obliterated PAD, diabetes, [place] 1 month ago. Prior to admission chart notes
patient was taking detemir 68 units daily with 14 units NovoLog AC , Jardiance 25 mg daily and metformin 1000 BID. A1C is 8.4%, cr 1.1, eGFR > 60.
Patient is awake alert and oriented able to discuss diabetes care. [facility] He used to take levemir 68 units daily but was recently switched, he thinks to lantus.
POD 3 s/p 1st metatarsal head resection. Evaluated by Dr. Church. Glucose range yesterday 93 to 188.
Fasting glucose today 129. Will continue Lantus 55 units in AM, novolog 14 units AC, with low corrective insulin with farxiga 10 mg daily (takes Jardiance 25 mg daily) and metformin 1000 mg BID.
Discussed with nurse. Will cont to follow
Diabetes History
- -
Type of Diabetes: 2 requiring insulin
Pre-Admission Diabetes Regimen
Lab Results
Hemoglobin A1c 8.4 % (4.0-5.6) H 05/08/25 06:07
Insulin Pump Settings
IP Diabetes Regimen
05/15/25 05/15/25 05/16/25
11:43 16:38 01:47
POC Glucose 150 H 121 H 93
05/16/25
07:36
POC Glucose 129 H
Meal type: Breakfast
Meal type: Lunch
Amount consumed: 100%
Amount consumed: 100%
Patient Education
[2025-05-16] MEDS: LANOXIN 125 MCG PO (11:56)
[2025-05-16 12:15] LABS: Glucose - Point of Care 149 mg/dl (70-99)
[2025-05-16] MEDS: MIRALAX 17 GRAMS PO (12:27)
--- NOTE | 2025-05-16 13:48 | W.PN.HOSP.TC ---
Today's Communication/Plan
-
Continue wound care
Continue IV antibiotics
No changes to insulin dose today
Vascular surgery following with plan to attempt Limflow flow next week
Assessment / Plan
Assessment / Plan
This is a 74-year-old male with a past medical history of type 2 diabetes mellitus, severe distal small vessel obliterative PAD, right BKA, hypertension who presented to the ED with gangrene of the left great toe. Patient states that he had a
blister to the left great toe for several months, and has been increasing in size swelling and pain since. He was seen by vascular surgery Dr. Church today and was sent to the ER for IV antibiotics and possible admission. Patient denies fever, chills
or any other symptoms.
XR left foot: Some suspected cortical lucency at least along the distal tip of the distal phalanx of left great toe, mildly suspicious for osteomyelitis.
Assessment/plan:
# Left great toe gangrene without systemic illness
# History of severe distal small vessel obliterative PAD
# History of right BKA/ by Dr. Church
Wound culture 05/08/25 polymicrobial.
� S/p left open hallux amputation 05/08/24 with application of negative pressure wound therapy- dressing change 05/10/25.
- Status post first metatarsal head resection packed open on 05/13. Continue wound care
� Continue Zosyn, Vanco was discontinued based on cultures. Infectious disease following.
� Failed Limflow 05/09/25. Vascular surgery has been on board with planning attempt of repeat Limflow
� Continue Plavix/Eliquis.
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
�Na 135 on 05/10/25, decreased to 133 today 05/11/25.
�Trend BMP.
# Type 2 diabetes mellitus
� HbA1c 8.4% 05/08/25
Regimen has been adjusted.
Currently on Lantus 55/aspart 14 AC with addition of Farxiga and metformin.
# Chronic hypotension
� Continue midodrine 5 Mg p.o. daily.
# Hyperlipidemia
� Continue statin.
# Mild hyponatremia
�133 today 05/08/2025, will continue to trend BMP.
#Obesity due to excess calories
DVT prophylaxis: Heparin
CODE STATUS: Full
Anticipated Discharge: > 48 hours
Subjective/Interval History
-
Date of Service: May 16, 2025
Objective Data
-
Vital Signs:
Vital Signs
Temp Pulse Resp BP Pulse Ox
98.1 F 82 18 113/72 94
05/16/25 08:04 05/16/25 11:56 05/16/25 08:04 05/16/25 08:04 05/16/25 10:42
I&O
05/15/25 05/16/25 05/17/25
06:59 06:59 06:59
Intake Total 1360 / 1360 810 / 810
Output Total 1775 / 1775 2100 / 2100 400 / 400
Balance -415 / -415 -1290 / -1290 -400 / -400
Physical Exam
-
General: Well Developed and No Apparent Distress
HEENT: Normocephalic, Atraumatic and Moist Mucous Membranes
Respiratory: Clear to Auscultation
Cardiac: Regular Rhythm and S1/S2; Negative Murmur, Rub or Gallop
GI: Soft, Nontender, Nondistended and Normal Bowel Sounds; Negative Organomegaly
Rectal: Deferred by Provider
Musculoskeletal: No Clubbing, No Cyanosis and No Edema
Skin: Negative Rash
Neuro: Nonfocal/Grossly Intact
--- NOTE | 2025-05-16 14:53 | W.PN.ID1 ---
Date of Service
Date of Service: May 16, 2025
Today's Communication
Continue Zosyn.
Assessment / Plan
# Left hallux gangrene and osteo
# Severe PAD, not amenable to revascularization
# Leukocytosis,
# Post-op fever, resolved
# DM
# hx R BKA
- 05/08 s/p left great toe open amputation
OR cx: E. faecalis, Providencia, Klebsiella oxytoca
- 05/09 failed attempt Limflow.
-05/13/25 Left 1st ray incision wtih debridement to level of bone. Noted to have significant purulence and necrotizing deep tissue, poor perfusion, foot deemed nonsalvageable per Podiatry OR cx: Serratia
- Vascular trying to salvage limb. Will attempt at Limflow next week; if not successful, then TMA.
- Continue Zosyn (d10). Of note, antibiotic unlikely to reach therapeutic level at target site due to severe PAD.
Chief Complaint
-: Other (toe gangrene)
Subjective / Review of Systems
No complaints.
Vital Signs / Physical Exam
Vital Signs
Vital Signs
Temp Pulse Resp BP Pulse Ox
98.1 F 82 18 113/72 94
05/16/25 08:04 05/16/25 11:56 05/16/25 08:04 05/16/25 08:04 05/16/25 10:42
Physical Exam
Constitutional: No Acute Distress and Comfortable
Cardiovascular: Regular Rate and S1/S2
Pulmonary: Clear
Gastrointestinal: Soft, Non Tender and Non Distended
Extremities: Negative Edema
Wound: Other (Right foot dressing dry; remaining toes dusky appearing)
Neurological: AO x 3
Objective Data
Lab Data
Lab Results
05/15/25 06:01
05/15/25 06:01
Estimated Creat Clear 70 ml/min 05/15/25 06:01
Lactic Acid Cancelled 05/07/25 20:30
Total Bilirubin 1.2 mg/dl (0.2-1.3) 05/07/25 14:25
AST 30 U/L (17-59) 05/07/25 14:25
ALT 31 U/L (0-50) 05/07/25 14:25
Alkaline Phosphatase 127 U/L (38-126) H 05/07/25 14:25
Most recent labs reviewed.
Micro Results:
05/13/25 19:20 Wound Culture - Preliminary
Foot - Left Serratia marcescens
Gram Stain - Preliminary
05/13/25 19:20 Anaerobic Culture - Preliminary
Wound-Deep Culture pending. Anaerobic cultures are examined after 3
days incubation. Additional information to follow.
05/07/25 16:51 Blood Culture - Final
Blood/Venous No Growth - Final Report
05/07/25 16:54 Blood Culture - Final
Blood/Venous No Growth - Final Report
05/08/25 16:53 Wound Culture - Final
Toe Klebsiella oxytoca
Providencia alcalfaciens
Enterococcus faecalis
Gram Stain - Final
05/07/25 16:51 Wound Culture - Final
Toe Klebsiella oxytoca
Providencia alcalfaciens
Enterococcus faecalis
Gram Stain - Final
05/08/25 05:33 MRSA Screen - Final
Nose No Methicillin Resistant Staphylococcus aureus isolated.
05/08/25 Foot XRAY: Surgical amputation of the phalanges of the left great toe in the interval since study of preceding day.
05/07/25 Foot XRAY: Some suspected cortical lucency at least along the distal tip of the distal phalanx of left great toe, at least suspicious for osteomyelitis.
--- NOTE | 2025-05-16 15:20 | W.PN.UPDATE ---
Update Note
Progress Note Update
Had extensive discussion with the patient's daughter over the phone. I also discussed subsequently with the patient. Had a realistic discussion regarding current situation. I spoke to Dr. Davis as well and we had a very lengthy discussion.
Chance of healing TMA based on all these discussions and determinations is likely moderate at best. No significant guarantee. Would need open TMA. The other alternative is to proceed directly to BKA. I do not know that trying again a LimFlow
realistically will carry much chance of success. Therefore after our discussion we are all in agreement that patient will proceed with attempted open TMA. If healthy and able to heal, we could consider repeat LimFlow attempt at that point or
alternatively allow it to heal with close wound care follow-up. If not healthy, then would likely have to proceed to BKA. Will defer to Dr. Davis and his team regarding schedule for TMA.
[2025-05-16 15:57] VITALS: BP 116/72
--- NOTE | 2025-05-16 16:07 | CM ---
Chart reviewed patient for possible further surgery will need skilled placement.
Plan; To follow with patient and assist with skilled placement when stable.
[2025-05-16 16:32] LABS: Glucose - Point of Care 119 mg/dl (70-99)
[2025-05-16 21:21] LABS: Glucose - Point of Care 78 mg/dl (70-99)
[2025-05-16] MEDS: LIPITOR 80 MG PO (21:44)
[2025-05-16 22:22] LABS: Glucose - Point of Care 102 mg/dl (70-99)
[2025-05-16 23:06] VITALS: BP 135/60
[2025-05-16] MEDS: DILAUDID 0.25 MG IV (23:33)
[2025-05-17] VITALS (13 sets, daily range): BP systolic 98–126; BP diastolic 59–74; PULSE 63–64; O2SAT 98
[2025-05-17] MEDS: ZOSYN 50 IV ×3 (05:46→19:43)
[2025-05-17 07:24] LABS: Glucose - Point of Care 169 mg/dl (70-99)
[2025-05-17 07:36] LABS: Hematocrit 33.9 % (39.0-52.0); Hemoglobin 11.3 g/dL (13.0-18.0); Mean Corp Hgb Conc. 33.3 g/dL (33.0-37.0); Mean Corpuscular Volume 89.4 fL (80.0-94.0); Nucleated Red Blood Cells % 0 % (-); Platelet Count 415 10^3/uL (130-400); Red Cell Dist. Width 13.0 % (11.5-14.5)
--- NOTE | 2025-05-17 07:42 | PN.DE.MGMTRT ---
Insulin Management
- -
05/17/2025: Diabetes Management Follow up
Patient admitted 05/07 with blisters and pain L great toe. Sent from Dr. Church's office for antibiotics and vascular procedure. PMH RBKA, HTN, severe distal small vessel obliterated PAD, diabetes, [place] 1 month ago. Prior to admission chart notes
patient was taking detemir 68 units daily with 14 units NovoLog AC , Jardiance 25 mg daily and metformin 1000 BID. States he sees [facility] for diabetes care. He used to take Levemir 68 units daily but was recently switched, he thinks to Lantus. A1C is
8.4%, cr 1.1, eGFR > 60.
Patient is awake alert and oriented, sitting up in bed, offers no complaints, able to discuss diabetes care.
POD #4 s/p 1st metatarsal head resection. Glucose range yesterday 119 to 149. FBG 158 V, 169 POC this AM.
Will continue Lantus 55 units in AM, NovoLog 14 units AC, with low corrective insulin with Farxiga 10 mg daily (takes Jardiance 25 mg daily) and metformin 1000 mg BID.
Discussed with nurse. Will cont to follow
Diabetes History
- -
Type of Diabetes: 2 requiring insulin
Pre-Admission Diabetes Regimen
Lab Results
Hemoglobin A1c 8.4 % (4.0-5.6) H 05/08/25 06:07
Insulin Pump Settings
IP Diabetes Regimen
05/16/25 05/16/25 05/16/25
12:11 16:29 21:19
POC Glucose 149 H 119 H 78
05/16/25 05/17/25
22:21 07:19
POC Glucose 102 H 169 H
Meal type: Lunch
Meal type: Breakfast
Amount consumed: 100%
Patient Education
[2025-05-17 08:03] LABS: Blood Urea Nitrogen 17 mg/dl (9-20); Calcium 8.4 mg/dl (8.4-10.2); Carbon Dioxide 28 mmol/L (22-30); Chloride 96 mmol/L (98-107); Estimated Creatinine Clearance 70 ml/min; Glucose 158 mg/dl (70-99); Potassium 4.6 mmol/L (3.5-5.1); Sodium 132 mmol/L (135-145); eGFR > 60.00
[2025-05-17 09:23] LABS: Glucose - Point of Care 195 mg/dl (70-99)
[2025-05-17] MEDS: CYMBALTA DELAYED RELEASE 60 MG PO (09:23)
[2025-05-17] MEDS: PLAVIX 75 MG PO (09:23)
[2025-05-17] MEDS: FARXIGA 10 MG PO (09:23)
[2025-05-17] MEDS: NEURONTIN 300 MG PO ×2 (09:23→20:44)
[2025-05-17] MEDS: LANTUS 0.55 UNITS SC (09:24)
[2025-05-17] MEDS: GLUCOPHAGE 1000 MG PO (09:24)
[2025-05-17] MEDS: TYLENOL 650 MG PO (09:29)
[2025-05-17] MEDS: NOVOLOG FLEXPEN-LOW RESISTANCE 1 UNITS SC (10:42)
[2025-05-17] MEDS: NOVOLOG FLEXPEN 14 UNITS SC (10:43)
--- NOTE | 2025-05-17 11:37 | CM ---
Chart reviewed and patient may needs skilled placement depending on plan for surgery, will follow with progress with PT/OT
Plan; To follow with patient progress and assist with discharge planning.
[2025-05-17 11:50] LABS: Glucose - Point of Care 177 mg/dl (70-99)
[2025-05-17] MEDS: LANOXIN 125 MCG PO (13:32)
--- NOTE | 2025-05-17 14:02 | W.PN.HOSP.TC ---
Today's Communication/Plan
-
Monitor vital signs see plan
Eliquis on hold, restart when okay with podiatry
cw abx
OR per podiatry
Assessment / Plan
Assessment / Plan
This is a 74-year-old male with a past medical history of type 2 diabetes mellitus, severe distal small vessel obliterative PAD, right BKA, hypertension who presented to the ED with gangrene of the left great toe. Patient states that he had a
blister to the left great toe for several months, and has been increasing in size swelling and pain since. He was seen by vascular surgery Dr. Church today and was sent to the ER for IV antibiotics and possible admission. Patient denies fever, chills
or any other symptoms.
XR left foot: Some suspected cortical lucency at least along the distal tip of the distal phalanx of left great toe, mildly suspicious for osteomyelitis.
Assessment/plan:
# Left great toe gangrene without systemic illness
# History of severe distal small vessel obliterative PAD
# History of right BKA/ by Dr. Church
Wound culture 05/08/25 polymicrobial.
� S/p left open hallux amputation 05/08/24 with application of negative pressure wound therapy- dressing change 05/10/25.
- Status post first metatarsal head resection packed open on 05/13. Continue wound care
� Continue Zosyn, Vanco was discontinued based on cultures. Infectious disease following.
� Failed Limflow 05/09/25. Vascular surgery has been on board with planning attempt of repeat Limflow
� Continue Plavix
eliquis on hold, restart when ok with podiatry
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
�Na 135 on 05/10/25, decreased to 133 today 05/11/25.
�Trend BMP.
# Type 2 diabetes mellitus
� HbA1c 8.4% 05/08/25
Regimen has been adjusted.
Currently on Lantus 55/aspart 14 AC with addition of Farxiga and metformin.
# Chronic hypotension
� Continue midodrine 5 Mg p.o. daily.
# Hyperlipidemia
� Continue statin.
# Mild hyponatremia
� monitor
#Obesity due to excess calories
DVT prophylaxis: SCD's
CODE STATUS: Full
General: Well Developed and No Apparent Distress
HEENT: Normocephalic, Atraumatic and Moist Mucous Membranes
Respiratory: Clear to Auscultation
Cardiac: Regular Rhythm and S1/S2; Negative Murmur, Rub or Gallop
GI: Soft, Nontender, Nondistended and Normal Bowel Sounds
Musculoskeletal: right BKA,left foot wound
Skin: Negative Rash
Neuro: Nonfocal/Grossly Intact
Anticipated Discharge: > 48 hours
Subjective/Interval History
-
Date of Service: May 17, 2025
Denies nausea
Objective Data
-
Labs:
Laboratory Results
05/17/25
06:17
WBC 11.5 H
Hgb 11.3 L
Hct 33.9 L
Plt Count 415 H
Sodium 132 L
Potassium 4.6
Chloride 96 L
Carbon Dioxide 28
BUN 17
Creatinine 1.1
Glucose 158 H
Calcium 8.4
Vital Signs:
Vital Signs
Temp Pulse Resp BP Pulse Ox
97.5 F 63 16 126/67 95
05/17/25 07:25 05/17/25 13:32 05/17/25 07:25 05/17/25 07:25 05/17/25 07:25
I&O
05/16/25 05/17/25 05/18/25
06:59 06:59 06:59
Intake Total 810 / 810 1060 / 1060
Output Total 2099 / 2099 2540 / 2540
Balance -1290 / -1290 -1480 / -1480
[2025-05-17] MEDS: NOVOLOG FLEXPEN-LOW RESISTANCE SC ×2 (14:24→18:32)
[2025-05-17] MEDS: NOVOLOG FLEXPEN SC ×2 (14:24→18:32)
--- NOTE | 2025-05-17 15:07 | W.PN.ID1 ---
Date of Service
Date of Service: May 17, 2025
Today's Communication
Continue Zosyn
Assessment / Plan
# Left hallux gangrene and osteo
# Severe PAD, not amenable to revascularization
# Leukocytosis,
# Post-op fever, resolved
# DM
# hx R BKA
- 05/08 s/p left great toe open amputation
OR cx: E. faecalis, Providencia, Klebsiella oxytoca
- 05/09 failed attempt Limflow.
-05/13/25 Left 1st ray incision wtih debridement to level of bone. Noted to have significant purulence and necrotizing deep tissue, poor perfusion, foot deemed nonsalvageable per Podiatry OR cx: Serratia
-For attempt at open TMA and monitor for wound healing, per Vascular and Podiatry
- Continue Zosyn (d11). Of note, antibiotic unlikely to reach therapeutic level at target site due to severe PAD.
Chief Complaint
-: Other (toe gangrene)
Subjective / Review of Systems
no new complaints
Vital Signs / Physical Exam
Vital Signs
Vital Signs
Temp Pulse Resp BP Pulse Ox
97.5 F 63 16 126/67 95
05/17/25 07:25 05/17/25 13:32 05/17/25 07:25 05/17/25 07:25 05/17/25 07:25
Physical Exam
Constitutional: No Acute Distress and Comfortable
Cardiovascular: Regular Rate and S1/S2
Pulmonary: Clear
Gastrointestinal: Soft, Non Tender and Non Distended
Extremities: Negative Edema
Wound: Other (Right foot dressing dry; remaining toes dusky appearing)
Neurological: AO x 3
Objective Data
Lab Data
Lab Results
05/17/25 06:17
05/17/25 06:17
Estimated Creat Clear 70 ml/min 05/17/25 06:17
Lactic Acid Cancelled 05/07/25 20:30
Total Bilirubin 1.2 mg/dl (0.2-1.3) 05/07/25 14:25
AST 30 U/L (17-59) 05/07/25 14:25
ALT 31 U/L (0-50) 05/07/25 14:25
Alkaline Phosphatase 127 U/L (38-126) H 05/07/25 14:25
Most recent labs reviewed.
Micro Results:
05/13/25 19:20 Anaerobic Culture - Preliminary
Wound-Deep Culture pending. Anaerobic cultures are examined after 3
days incubation. Additional information to follow.
05/13/25 19:20 Wound Culture - Preliminary
Foot - Left Serratia marcescens
Gram Stain - Preliminary
05/07/25 16:51 Blood Culture - Final
Blood/Venous No Growth - Final Report
05/07/25 16:54 Blood Culture - Final
Blood/Venous No Growth - Final Report
05/08/25 16:53 Wound Culture - Final
Toe Klebsiella oxytoca
Providencia alcalfaciens
Enterococcus faecalis
Gram Stain - Final
05/07/25 16:51 Wound Culture - Final
Toe Klebsiella oxytoca
Providencia alcalfaciens
Enterococcus faecalis
Gram Stain - Final
05/08/25 05:33 MRSA Screen - Final
Nose No Methicillin Resistant Staphylococcus aureus isolated.
05/08/25 Foot XRAY: Surgical amputation of the phalanges of the left great toe in the interval since study of preceding day.
05/07/25 Foot XRAY: Some suspected cortical lucency at least along the distal tip of the distal phalanx of left great toe, at least suspicious for osteomyelitis.
[2025-05-17 16:40] LABS: Glucose - Point of Care 119 mg/dl (70-99)
[2025-05-17] MEDS: NEURONTIN PO (17:00)
[2025-05-17] MEDS: GLUCOPHAGE PO (18:37)
--- NOTE | 2025-05-17 18:40 | W.PN.UPDATE ---
Update Note
Progress Note Update
74M s/p L open TMA, poor perfusion, minimal activity w/ pedal muscle stimulation
- daily saline wet to dry dressings
- NWB LLE
- will follow up vascular recommendations for Limflow
- will follow
[2025-05-17 18:58] LABS: Glucose - Point of Care 86 mg/dl (70-99)
[2025-05-17] MEDS: ZOFRAN 4 MG IV (19:02)
[2025-05-17] MEDS: DILAUDID 0.5 MG IV ×2 (19:02→19:21)
--- NOTE | 2025-05-17 19:51 | PTCARENOTE ---
Report taken and pt. received from PACU, VSS. Pt. restimg comfortably at this time. Plan of care ongoing.
[2025-05-17] MEDS: LIPITOR 80 MG PO (20:44)
[2025-05-17 21:58] LABS: Glucose - Point of Care 119 mg/dl (70-99)
[2025-05-17] MEDS: ROXICODONE 5 MG PO (22:13)
[2025-05-18] VITALS (7 sets, daily range): BP systolic 94–121; BP diastolic 49–67
[2025-05-18] MEDS: ZOSYN IV (01:17)
[2025-05-18] MEDS: ZOSYN 50 IV ×4 (02:43→19:38)
[2025-05-18] MEDS: ROXICODONE 5 MG PO ×2 (03:33→09:03)
[2025-05-18] MEDS: DILAUDID 0.25 MG IV (05:54)
[2025-05-18 07:47] LABS: Hematocrit 30.8 % (39.0-52.0); Hemoglobin 10.0 g/dL (13.0-18.0); Mean Corp Hgb Conc. 32.5 g/dL (33.0-37.0); Mean Corpuscular Volume 89.8 fL (80.0-94.0); Nucleated Red Blood Cells % 0 % (-); Platelet Count 416 10^3/uL (130-400); Red Cell Dist. Width 13.0 % (11.5-14.5)
[2025-05-18 08:20] LABS: Blood Urea Nitrogen 17 mg/dl (9-20); Calcium 8.1 mg/dl (8.4-10.2); Carbon Dioxide 29 mmol/L (22-30); Chloride 97 mmol/L (98-107); Estimated Creatinine Clearance 70 ml/min; Glucose 120 mg/dl (70-99); Potassium 4.7 mmol/L (3.5-5.1); Sodium 132 mmol/L (135-145); eGFR > 60.00
[2025-05-18 08:28] LABS: Glucose - Point of Care 467 mg/dl (70-99)
[2025-05-18] MEDS: NOVOLOG FLEXPEN 14 UNITS SC (08:47)
[2025-05-18] MEDS: CYMBALTA DELAYED RELEASE 60 MG PO (08:57)
[2025-05-18] MEDS: FARXIGA 10 MG PO (08:57)
[2025-05-18] MEDS: GLUCOPHAGE 1000 MG PO ×2 (08:57→17:23)
[2025-05-18] MEDS: NEURONTIN 300 MG PO ×3 (08:57→21:10)
[2025-05-18] MEDS: PLAVIX 75 MG PO (08:57)
[2025-05-18] MEDS: LANTUS 0.55 UNITS SC (09:00)
[2025-05-18 09:15] LABS: Glucose 154 mg/dl (70-99)
[2025-05-18] MEDS: NOVOLOG FLEXPEN-LOW RESISTANCE 1 UNITS SC (09:57)
--- NOTE | 2025-05-18 10:32 | W.PN.UPDATE ---
Update Note
Progress Note Update
74M s/p L open TMA, poor perfusion, minimal activity w/ pedal muscle stimulation. Doing well, anticipated drainage on dressings. Pt tolerated dsg change well.
- daily saline wet to dry dressings
- NWB LLE
- will follow up vascular recommendations for Limflow
- will follow
[2025-05-18 11:56] LABS: Glucose - Point of Care 361 mg/dl (70-99)
[2025-05-18] MEDS: TYLENOL 650 MG PO (11:58)
--- NOTE | 2025-05-18 12:01 | W.PN.HOSP.TC ---
Today's Communication/Plan
-
monitor vitals
see plan
restart eliquis
pain control
abx
Assessment / Plan
Assessment / Plan
This is a 74-year-old male with a past medical history of type 2 diabetes mellitus, severe distal small vessel obliterative PAD, right BKA, hypertension who presented to the ED with gangrene of the left great toe. Patient states that he had a
blister to the left great toe for several months, and has been increasing in size swelling and pain since. He was seen by vascular surgery Dr. Church today and was sent to the ER for IV antibiotics and possible admission. Patient denies fever, chills
or any other symptoms.
XR left foot: Some suspected cortical lucency at least along the distal tip of the distal phalanx of left great toe, mildly suspicious for osteomyelitis.
Assessment/plan:
# Left great toe gangrene without systemic illness
# History of severe distal small vessel obliterative PAD
# History of right BKA/ by Dr. Church
Wound culture 05/08/25 polymicrobial.
� S/p left open hallux amputation 05/08/24 with application of negative pressure wound therapy- dressing change 05/10/25.
- Status post first metatarsal head resection packed open on 05/13. Continue wound care
� Continue Zosyn, Vanco was discontinued based on cultures. Infectious disease following.
� Failed Limflow 05/09/25. Vascular surgery has been on board with planning attempt of repeat Limflow. Had conversation with vascular surgery and plan was taken for open TMA. Status post left open TMA 05/17. Discussed with podiatry and okay for
Eliquis to start. Nonweightbearing left lower extremity per podiatry. Vascular following
� Continue Plavix
Restart Eliquis
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
monitor
# Type 2 diabetes mellitus
� HbA1c 8.4% 05/08/25
Regimen has been adjusted.
Currently on Lantus 55/aspart 14 AC with addition of Farxiga and metformin. BS high, inc insulin
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
# Chronic hypotension
� Continue midodrine 5 Mg p.o. daily.
# Hyperlipidemia
� Continue statin.
# Mild hyponatremia
� monitor
#Obesity due to excess calories
DVT prophylaxis: eliquis
CODE STATUS: Full
General: Well Developed and No Apparent Distress
HEENT: Normocephalic, Atraumatic and Moist Mucous Membranes
Respiratory: Clear to Auscultation
Cardiac: Regular Rhythm and S1/S2; Negative Murmur, Rub or Gallop
GI: Soft, Nontender, Nondistended and Normal Bowel Sounds
Musculoskeletal: right BKA,left foot wound
Skin: Negative Rash
Neuro: Nonfocal/Grossly Intact
I spent a total of 52 minutes with the patient or on the floor. More than 50% of this time involved counseling and coordination of care.
Anticipated Discharge: > 48 hours
Subjective/Interval History
-
Date of Service: May 18, 2025
Denies nausea
Objective Data
-
Labs:
Laboratory Results
05/18/25 05/18/25
06:05 08:50
WBC 10.6
Hgb 10.0 L
Hct 30.8 L
Plt Count 416 H
Sodium 132 L
Potassium 4.7
Chloride 97 L
Carbon Dioxide 29
BUN 17
Creatinine 1.1
Glucose 120 H 154 H
Calcium 8.1 L
Vital Signs:
Vital Signs
Temp Pulse Resp BP Pulse Ox
97.7 F 82 18 111/53 98
05/18/25 08:43 05/18/25 08:57 05/18/25 08:43 05/18/25 08:57 05/18/25 08:43
I&O
05/17/25 05/18/25 05/19/25
06:59 06:59 06:59
Intake Total 1060 / 1060 1500 / 1500
Output Total 2540 / 2540 1550 / 1550
Balance -1480 / -1480 -50 / -50
[2025-05-18] MEDS: DILAUDID 0.5 MG IV ×3 (12:52→21:11)
[2025-05-18] MEDS: NOVOLOG FLEXPEN-LOW RESISTANCE 5 UNITS SC (12:53)
[2025-05-18] MEDS: NOVOLOG FLEXPEN SC ×2 (13:04→17:32)
[2025-05-18 14:11] LABS: Glucose - Point of Care 177 mg/dl (70-99)
[2025-05-18] MEDS: LANOXIN 125 MCG PO (14:17)
[2025-05-18] MEDS: NOVOLOG FLEXPEN 16 UNITS SC (14:18)
[2025-05-18 16:55] LABS: Glucose - Point of Care 501 mg/dl (70-99)
[2025-05-18 17:07] LABS: Glucose - Point of Care 97 mg/dl (70-99)
[2025-05-18 17:13] LABS: Glucose - Point of Care 108 mg/dl (70-99)
[2025-05-18] MEDS: NOVOLOG FLEXPEN-LOW RESISTANCE SC (17:18)
[2025-05-18] MEDS: ELIQUIS 5 MG PO (19:38)
[2025-05-18 21:10] LABS: Glucose - Point of Care 100 mg/dl (70-99)
[2025-05-18] MEDS: LIPITOR 80 MG PO (21:10)
[2025-05-19] MEDS: ZOSYN 50 IV ×4 (03:00→19:52)
[2025-05-19] MEDS: ROXICODONE 5 MG PO (03:07)
[2025-05-19] MEDS: DILAUDID 0.5 MG IV ×4 (04:43→19:52)
[2025-05-19 07:32] LABS: Glucose - Point of Care 138 mg/dl (70-99)
[2025-05-19 07:34] LABS: Hematocrit 28.6 % (39.0-52.0); Hemoglobin 9.3 g/dL (13.0-18.0); Mean Corp Hgb Conc. 32.5 g/dL (33.0-37.0); Mean Corpuscular Volume 89.9 fL (80.0-94.0); Nucleated Red Blood Cells % 0 % (-); Platelet Count 399 10^3/uL (130-400); Red Cell Dist. Width 12.8 % (11.5-14.5)
[2025-05-19 08:00] VITALS: BP 113/58
[2025-05-19 08:08] LABS: Blood Urea Nitrogen 17 mg/dl (9-20); Calcium 8.0 mg/dl (8.4-10.2); Carbon Dioxide 29 mmol/L (22-30); Chloride 96 mmol/L (98-107); Estimated Creatinine Clearance 70 ml/min; Glucose 134 mg/dl (70-99); Potassium 4.7 mmol/L (3.5-5.1); Sodium 130 mmol/L (135-145); eGFR > 60.00
[2025-05-19] MEDS: NOVOLOG FLEXPEN 16 UNITS SC ×2 (08:36→12:15)
[2025-05-19] MEDS: NOVOLOG FLEXPEN-LOW RESISTANCE SC ×2 (08:36→16:53)
[2025-05-19] MEDS: FARXIGA 10 MG PO (08:37)
[2025-05-19] MEDS: CYMBALTA DELAYED RELEASE 60 MG PO (08:37)
[2025-05-19] MEDS: GLUCOPHAGE 1000 MG PO (08:37)
[2025-05-19] MEDS: LANTUS 0.58 UNITS SC (08:37)
[2025-05-19] MEDS: ELIQUIS 5 MG PO ×2 (08:37→19:52)
[2025-05-19] MEDS: NEURONTIN 300 MG PO ×3 (08:38→21:34)
[2025-05-19] MEDS: PLAVIX 75 MG PO (08:38)
[2025-05-19 11:42] LABS: Glucose - Point of Care 307 mg/dl (70-99)
[2025-05-19] MEDS: LANOXIN 125 MCG PO (12:14)
[2025-05-19] MEDS: NOVOLOG FLEXPEN-LOW RESISTANCE 4 UNITS SC (12:14)
--- NOTE | 2025-05-19 12:43 | W.PN.HOSP.TC ---
Today's Communication/Plan
-
Monitor vitals
See plan
Podiatry and vascular
Pain control
PT/OT
Continue abx
Assessment / Plan
Assessment / Plan
This is a 74-year-old male with a past medical history of type 2 diabetes mellitus, severe distal small vessel obliterative PAD, right BKA, hypertension who presented to the ED with gangrene of the left great toe. Patient states that he had a
blister to the left great toe for several months, and has been increasing in size swelling and pain since. He was seen by vascular surgery Dr. Church today and was sent to the ER for IV antibiotics and possible admission. Patient denies fever, chills
or any other symptoms.
XR left foot: Some suspected cortical lucency at least along the distal tip of the distal phalanx of left great toe, mildly suspicious for osteomyelitis.
Assessment/plan:
# Left great toe gangrene without systemic illness
# History of severe distal small vessel obliterative PAD
# History of right BKA/ by Dr. Church
Wound culture 05/08/25 polymicrobial.
� S/p left open hallux amputation 05/08/24 with application of negative pressure wound therapy- dressing change 05/10/25.
- Status post first metatarsal head resection packed open on 05/13. Continue wound care
� Continue Zosyn, Vanco was discontinued based on cultures. Infectious disease following.
� Failed Limflow 05/09/25. Vascular surgery has been on board with planning attempt of repeat Limflow. Had conversation with vascular surgery and plan was taken for open TMA. Status post left open TMA 05/17. Eliquis restarted post OP.
Nonweightbearing left lower extremity per podiatry. Vascular following
� Continue Plavix
Restarted Eliquis
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
monitor
# Type 2 diabetes mellitus
� HbA1c 8.4% 05/08/25
Regimen has been adjusted.
Currently on Lantus 55/aspart 14 AC with addition of Farxiga and metformin. BS high, inc insulin
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
# Chronic hypotension
� Continue midodrine 5 Mg p.o. daily.
# Hyperlipidemia
� Continue statin.
# Mild hyponatremia
� monitor
#Obesity due to excess calories
DVT prophylaxis: eliquis
CODE STATUS: Full
General: Well Developed and No Apparent Distress
HEENT: Normocephalic, Atraumatic and Moist Mucous Membranes
Respiratory: Clear to Auscultation
Cardiac: Regular Rhythm and S1/S2; Negative Murmur, Rub or Gallop
GI: Soft, Nontender, Nondistended and Normal Bowel Sounds
Musculoskeletal: right BKA,left foot wound
Skin: Negative Rash
Neuro: Nonfocal/Grossly Intact
Anticipated Discharge: > 48 hours
Subjective/Interval History
-
Date of Service: May 19, 2025
denies nausea
Objective Data
-
Labs:
Laboratory Results
05/19/25
06:17
WBC 9.9
Hgb 9.3 L
Hct 28.6 L
Plt Count 399
Sodium 130 L
Potassium 4.7
Chloride 96 L
Carbon Dioxide 29
BUN 17
Creatinine 1.1
Glucose 134 H
Calcium 8.0 L
Vital Signs:
Vital Signs
Temp Pulse Resp BP Pulse Ox
97.5 F 72 14 113/58 96
05/19/25 08:00 05/19/25 12:14 05/19/25 08:00 05/19/25 08:00 05/19/25 08:00
I&O
05/18/25 05/19/25 05/20/25
06:59 06:59 06:59
Intake Total 1500 / 1500 720 / 720
Output Total 1550 / 1550 1150 / 1150
Balance -50 / -50 -430 / -430
[2025-05-19 15:55] VITALS: BP 127/65
[2025-05-19 16:52] LABS: Glucose - Point of Care 60 mg/dl (70-99)
[2025-05-19] MEDS: GLUCOPHAGE PO (16:54)
[2025-05-19 17:10] LABS: Glucose - Point of Care 92 mg/dl (70-99)
--- NOTE | 2025-05-19 17:15 | PTCARENOTE ---
Blood sugar found to be 60 before dinner. Pt asymptomatic. Pt given juice to drink and 15 minute glucose check result was 92. Dr. Ambrosio notified who gave order for half premeal insulin dose of 8 instead of 16 units to be given and PM metformin held.
[2025-05-19] MEDS: NOVOLOG FLEXPEN 8 UNITS SC (18:08)
[2025-05-19 18:58] LABS: Glucose - Point of Care 116 mg/dl (70-99)
[2025-05-19 21:34] LABS: Glucose - Point of Care 67 mg/dl (70-99)
[2025-05-19] MEDS: LIPITOR 80 MG PO (21:34)
[2025-05-19 23:22] VITALS: BP 132/67
[2025-05-20] MEDS: ZOSYN 50 IV ×4 (02:40→19:47)
[2025-05-20 03:39] LABS: Glucose - Point of Care 121 mg/dl (70-99)
[2025-05-20 07:05] VITALS: BP 133/64
[2025-05-20] MEDS: DILAUDID 0.5 MG IV (07:41)
[2025-05-20] MEDS: ELIQUIS 5 MG PO ×2 (07:43→19:47)
[2025-05-20] MEDS: NEURONTIN 300 MG PO ×3 (07:43→21:28)
[2025-05-20] MEDS: FARXIGA 10 MG PO (07:43)
[2025-05-20] MEDS: CYMBALTA DELAYED RELEASE 60 MG PO (07:43)
[2025-05-20] MEDS: PLAVIX 75 MG PO (07:43)
[2025-05-20 08:04] LABS: Glucose - Point of Care 107 mg/dl (70-99)
[2025-05-20 08:13] LABS: Hematocrit 29.8 % (39.0-52.0); Hemoglobin 9.7 g/dL (13.0-18.0); Mean Corp Hgb Conc. 32.6 g/dL (33.0-37.0); Mean Corpuscular Volume 89.0 fL (80.0-94.0); Nucleated Red Blood Cells % 0 % (-); Platelet Count 466 10^3/uL (130-400); Red Cell Dist. Width 12.6 % (11.5-14.5)
[2025-05-20 08:33] LABS: Blood Urea Nitrogen 13 mg/dl (9-20); Calcium 8.4 mg/dl (8.4-10.2); Carbon Dioxide 30 mmol/L (22-30); Chloride 98 mmol/L (98-107); Estimated Creatinine Clearance 77 ml/min; Glucose 90 mg/dl (70-99); Potassium 4.5 mmol/L (3.5-5.1); Sodium 133 mmol/L (135-145); eGFR > 60.00
[2025-05-20] MEDS: GLUCOPHAGE 1000 MG PO ×2 (09:00→16:54)
[2025-05-20] MEDS: LANTUS 0.58 UNITS SC (09:00)
[2025-05-20] MEDS: NOVOLOG FLEXPEN-LOW RESISTANCE SC ×3 (09:00→16:54)
[2025-05-20] MEDS: NOVOLOG FLEXPEN 14 UNITS SC ×2 (09:02→16:54)
[2025-05-20] MEDS: NOVOLOG FLEXPEN SC ×2 (09:06→12:37)
[2025-05-20 11:38] VITALS: BP 114/65; BP 135/74; PULSE 63; PULSE 75
[2025-05-20 11:49] LABS: Glucose - Point of Care 91 mg/dl (70-99)
--- NOTE | 2025-05-20 12:07 | W.PN.HOSP.TC ---
Today's Communication/Plan
-
Monitor vital signs see plan
Continue antibiotic
Continue with Eliquis
pain control
Assessment / Plan
Assessment / Plan
This is a 74-year-old male with a past medical history of type 2 diabetes mellitus, severe distal small vessel obliterative PAD, right BKA, hypertension who presented to the ED with gangrene of the left great toe. Patient states that he had a
blister to the left great toe for several months, and has been increasing in size swelling and pain since. He was seen by vascular surgery Dr. Church today and was sent to the ER for IV antibiotics and possible admission. Patient denies fever, chills
or any other symptoms.
XR left foot: Some suspected cortical lucency at least along the distal tip of the distal phalanx of left great toe, mildly suspicious for osteomyelitis.
Assessment/plan:
# Left great toe gangrene without systemic illness
# History of severe distal small vessel obliterative PAD
# History of right BKA/ by Dr. Church
Wound culture 05/08/25 polymicrobial.
� S/p left open hallux amputation 05/08/24 with application of negative pressure wound therapy- dressing change 05/10/25.
- Status post first metatarsal head resection packed open on 05/13. Continue wound care
� Continue Zosyn, Vanco was discontinued based on cultures. Infectious disease following.
� Failed Limflow 05/09/25. Vascular surgery has been on board with planning attempt of repeat Limflow. Had conversation with vascular surgery and plan was taken for open TMA. Status post left open TMA 05/17. Eliquis restarted post OP.
Nonweightbearing left lower extremity per podiatry. Vascular following
� Continue Plavix
Restarted Eliquis
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
monitor
# Type 2 diabetes mellitus
� HbA1c 8.4% 05/08/25
Regimen has been adjusted.
Currently on Lantus 55/aspart 14 AC with addition of Farxiga and metformin. BS high, inc insulin
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
# Chronic hypotension
� Continue midodrine 5 Mg p.o. daily.
# Hyperlipidemia
� Continue statin.
# Mild hyponatremia
� monitor
#Obesity due to excess calories
DVT prophylaxis: eliquis
CODE STATUS: Full
General: Well Developed and No Apparent Distress
HEENT: Normocephalic, Atraumatic and Moist Mucous Membranes
Respiratory: Clear to Auscultation
Cardiac: Regular Rhythm and S1/S2; Negative Murmur, Rub or Gallop
GI: Soft, Nontender, Nondistended and Normal Bowel Sounds
Musculoskeletal: right BKA,left foot wound
Skin: Negative Rash
Neuro: Nonfocal/Grossly Intact
Anticipated Discharge: > 48 hours
Subjective/Interval History
-
Date of Service: May 20, 2025
Has some pain
Objective Data
-
Labs:
Laboratory Results
05/20/25
06:50
WBC 10.4
Hgb 9.7 L
Hct 29.8 L
Plt Count 466 H
Sodium 133 L
Potassium 4.5
Chloride 98
Carbon Dioxide 30
BUN 13
Creatinine 1.0
Glucose 90
Calcium 8.4
Vital Signs:
Vital Signs
Temp Pulse Resp BP Pulse Ox
97.6 F 79 16 133/64 95
05/20/25 07:05 05/20/25 07:05 05/20/25 07:05 05/20/25 07:05 05/20/25 07:05
I&O
05/19/25 05/20/25 05/21/25
06:59 06:59 06:59
Intake Total 720 / 720 820 / 820
Output Total 1150 / 1150 2200 / 2200
Balance -430 / -430 -1380 / -1380
[2025-05-20] MEDS: LANOXIN 125 MCG PO (12:32)
[2025-05-20] MEDS: ROXICODONE 5 MG PO ×2 (14:42→21:31)
[2025-05-20 15:25] VITALS: BP 117/56
[2025-05-20 16:03] LABS: Glucose - Point of Care 113 mg/dl (70-99)
[2025-05-20] MEDS: LIPITOR 80 MG PO (21:28)
[2025-05-20 21:29] LABS: Glucose - Point of Care 109 mg/dl (70-99)
[2025-05-20] MEDS: TYLENOL 650 MG PO (21:31)
[2025-05-20 23:00] VITALS: BP 116/58
[2025-05-21] MEDS: ZOSYN 50 IV ×4 (03:08→20:30)
[2025-05-21 03:46] LABS: Glucose - Point of Care 113 mg/dl (70-99)
[2025-05-21 07:00] VITALS: BP 131/69
[2025-05-21 07:05] LABS: Glucose - Point of Care 110 mg/dl (70-99)
--- NOTE | 2025-05-21 07:43 | PN.DE.MGMTRT ---
Insulin Management
- -
05/21/2025: Diabetes Management Follow up
Patient admitted 05/07 with blisters and pain L great toe. Sent from Dr. Church's office for antibiotics and vascular procedure. PMH RBKA, HTN, severe distal small vessel obliterated PAD, diabetes, [place] 1 [place] ago. Prior to admission chart notes
patient was taking detemir 68 units daily with 14 units NovoLog AC , Jardiance 25 mg daily and metformin 1000 BID. States he sees [facility] for diabetes care. He used to take Levemir 68 units daily but was recently switched, he thinks to Lantus. A1C is
8.4%, cr 1.1, eGFR > 60.
Patient is awake alert and oriented, sitting up in bed, offers no complaints, able to discuss diabetes care.
POD #8 s/p 1st metatarsal head resection. Glucose range yesterday 91 to 1113.
Fasting glucose this AM 110.
Will decrease to Lantus 56 units in AM, continue NovoLog 14 units AC, with low corrective insulin with Farxiga 10 mg daily (takes Jardiance 25 mg daily) and metformin 1000 mg BID.
Discussed with nurse. Will cont to follow
Diabetes History
- -
Type of Diabetes: 2 requiring insulin
Pre-Admission Diabetes Regimen
05/20/25
06:50
Creatinine 1.0
Lab Results
Hemoglobin A1c 8.4 % (4.0-5.6) H 05/08/25 06:07
Insulin Pump Settings
IP Diabetes Regimen
05/20/25 05/20/25 05/20/25
06:50 08:03 11:48
Glucose 90
POC Glucose 107 H 91
05/20/25 05/20/25 05/21/25
16:01 21:28 03:44
Glucose
POC Glucose 113 H 109 H 113 H
05/21/25
07:03
Glucose
POC Glucose 110 H
Meal type: Dinner
Meal type: Breakfast
Amount consumed: 80%
Amount consumed: 100%
Patient Education
[2025-05-21 08:04] LABS: Hematocrit 30.6 % (39.0-52.0); Hemoglobin 9.9 g/dL (13.0-18.0); Mean Corp Hgb Conc. 32.4 g/dL (33.0-37.0); Mean Corpuscular Volume 90.3 fL (80.0-94.0); Nucleated Red Blood Cells % 0 % (-); Platelet Count 496 10^3/uL (130-400); Red Cell Dist. Width 12.9 % (11.5-14.5)
[2025-05-21 08:19] VITALS: BP 131/69; BP 134/69; PULSE 66; PULSE 68
[2025-05-21] MEDS: LANTUS 0.56 UNITS SC (08:32)
[2025-05-21] MEDS: NOVOLOG FLEXPEN-LOW RESISTANCE SC (08:33)
[2025-05-21] MEDS: NOVOLOG FLEXPEN 14 UNITS SC ×2 (08:33→11:55)
[2025-05-21] MEDS: CYMBALTA DELAYED RELEASE 60 MG PO (08:34)
[2025-05-21] MEDS: ELIQUIS 5 MG PO ×2 (08:35→20:29)
[2025-05-21] MEDS: PLAVIX 75 MG PO (08:35)
[2025-05-21] MEDS: FARXIGA 10 MG PO (08:35)
[2025-05-21] MEDS: NEURONTIN 300 MG PO ×3 (08:35→20:30)
[2025-05-21] MEDS: GLUCOPHAGE 1000 MG PO ×2 (08:35→16:38)
[2025-05-21] MEDS: DILAUDID 0.5 MG IV ×2 (08:48→14:45)
[2025-05-21 08:49] LABS: Blood Urea Nitrogen 14 mg/dl (9-20); Calcium 8.5 mg/dl (8.4-10.2); Carbon Dioxide 30 mmol/L (22-30); Chloride 99 mmol/L (98-107); Estimated Creatinine Clearance 77 ml/min; Glucose 94 mg/dl (70-99); Potassium 4.2 mmol/L (3.5-5.1); Sodium 135 mmol/L (135-145); eGFR > 60.00
[2025-05-21 11:26] LABS: Glucose - Point of Care 163 mg/dl (70-99)
[2025-05-21] MEDS: NOVOLOG FLEXPEN-LOW RESISTANCE 1 UNITS SC (11:55)
[2025-05-21] MEDS: LANOXIN 125 MCG PO (12:29)
--- NOTE | 2025-05-21 13:38 | W.PN.HOSP.TC ---
Today's Communication/Plan
-
Wound care
Monitor Hg with bleeding
Antibiotics
Adjust insulin dosing
Assessment / Plan
Assessment / Plan
This is a 74-year-old male with a past medical history of type 2 diabetes mellitus, severe distal small vessel obliterative PAD, right BKA, hypertension who presented to the ED with gangrene of the left great toe. Patient states that he had a
blister to the left great toe for several months, and has been increasing in size swelling and pain since. He was seen by vascular surgery Dr. Church today and was sent to the ER for IV antibiotics and possible admission. Patient denies fever, chills
or any other symptoms.
XR left foot: Some suspected cortical lucency at least along the distal tip of the distal phalanx of left great toe, mildly suspicious for osteomyelitis.
Assessment/plan:
# Left great toe gangrene without systemic illness
# History of severe distal small vessel obliterative PAD
# History of right BKA/ by Dr. Church
Wound culture 05/08/25 polymicrobial.
� S/p left open hallux amputation 05/08/24 with application of negative pressure wound therapy- dressing change 05/10/25.
- Status post first metatarsal head resection packed open on 05/13. Continue wound care
� Continue Zosyn, Vanco was discontinued based on cultures. Infectious disease following.
� Failed Limflow 05/09/25. Vascular surgery has been on board with planning attempt of repeat Limflow. Had conversation with vascular surgery and plan was taken for open TMA.
Status post left open TMA 05/17. Eliquis restarted post OP. Nonweightbearing left lower extremity per podiatry. Vascular following
� Continue Plavix
Restarted Eliquis
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
monitor
# Type 2 diabetes mellitus
� HbA1c 8.4% 05/08/25
Regimen has been adjusted.
Currently on Lantus 56/aspart 14 AC with addition of Farxiga and metformin. BS high, inc insulin
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
# Chronic hypotension
� Continue midodrine 5 Mg p.o. daily.
# Hyperlipidemia
� Continue statin.
# Mild hyponatremia
� monitor
#Obesity due to excess calories
DVT prophylaxis: eliquis
CODE STATUS: Full
Anticipated Discharge: > 48 hours
Subjective/Interval History
-
Date of Service: May 21, 2025
Objective Data
-
Labs:
Laboratory Results
05/21/25
06:14
WBC 9.6
Hgb 9.9 L
Hct 30.6 L
Plt Count 496 H
Sodium 135
Potassium 4.2
Chloride 99
Carbon Dioxide 30
BUN 14
Creatinine 1.0
Glucose 94
Calcium 8.5
Vital Signs:
Vital Signs
Temp Pulse Resp BP Pulse Ox
97.4 F 68 12 131/69 97
05/21/25 07:00 05/21/25 07:00 05/21/25 07:00 05/21/25 07:00 05/21/25 07:00
I&O
05/20/25 05/21/25 05/22/25
06:59 06:59 06:59
Intake Total 820 / 820 1060 / 1060 480 / 480
Output Total 2200 / 2200 2400 / 2400
Balance -1380 / -1380 -1340 / -1340 480 / 480
Physical Exam
-
General: Well Developed and No Apparent Distress
HEENT: Normocephalic, Atraumatic and Moist Mucous Membranes
Respiratory: Clear to Auscultation
Cardiac: Regular Rhythm and S1/S2; Negative Murmur, Rub or Gallop
GI: Soft, Nontender, Nondistended and Normal Bowel Sounds; Negative Organomegaly
Rectal: Deferred by Provider
Musculoskeletal: No Clubbing, No Cyanosis and No Edema
Skin: Negative Rash
Neuro: Nonfocal/Grossly Intact
--- NOTE | 2025-05-21 14:39 | PTCARENOTE ---
wound care done this morning. dressing completely saturated with blood including pads underneath wound. Md and podiatry made aware. new dressings placed. will monitor.
[2025-05-21 14:41] VITALS: BP 145/68
[2025-05-21 16:33] LABS: Glucose - Point of Care 74 mg/dl (70-99)
[2025-05-21] MEDS: NOVOLOG FLEXPEN-LOW RESISTANCE 10 UNITS SC (16:37)
[2025-05-21] MEDS: NOVOLOG FLEXPEN SC (16:47)
--- NOTE | 2025-05-21 16:47 | PTCARENOTE ---
glucose 75. juice provided per pt request. pt asymptomatic. leslie roman aware. instructed to give 10 units novolog and metformin. see mar. will monitor.
--- NOTE | 2025-05-21 17:16 | CM ---
Spoke with patient . He agrees he needs SNF at or.
PAC data given he said he will discuss with his daughter.
PLAN Follow up with pt to see which SNF he wants
--- NOTE | 2025-05-21 17:46 | W.PN.UPDATE ---
Update Note
Progress Note Update
74M s/p L open TMA, poor perfusion, minimal activity w/ pedal muscle stimulation. Doing well, bandage changed multiple times today- wound examined with 1 skin vessel oozing, pressure held for hemostasis. Pt tolerated dsg change well.
- daily saline wet to dry dressings
- NWB LLE
- will follow up vascular recommendations for Limflow
- will follow
--- NOTE | 2025-05-21 17:54 | W.PN.ID1 ---
Date of Service
Date of Service: May 21, 2025
Today's Communication
Continue Zosyn
Assessment / Plan
# Left hallux gangrene and osteo
# Severe PAD, not amenable to revascularization
# Leukocytosis,
# Post-op fever, resolved
# DM
# hx R BKA
- 05/08 s/p left great toe open amputation
OR cx: E. faecalis, Providencia, Klebsiella oxytoca
- 05/09 failed attempt Limflow.
-05/13/25 Left 1st ray incision wtih debridement to level of bone. Noted to have significant purulence and necrotizing deep tissue, poor perfusion, foot deemed nonsalvageable per Podiatry OR cx: Serratia
-05/17 s/p open TMA and monitor for wound healing
- Possible reattempt Limflow
- Continue Zosyn (d14). Of note, antibiotic unlikely to reach therapeutic level at target site due to severe PAD.
Chief Complaint
-: Other (toe gangrene)
Subjective / Review of Systems
Foot amp site kept bleeding today.
Vital Signs / Physical Exam
Vital Signs
Vital Signs
Temp Pulse Resp BP Pulse Ox
97.7 F 78 18 145/68 99
05/21/25 14:41 05/21/25 14:41 05/21/25 14:41 05/21/25 14:41 05/21/25 14:41
Physical Exam
Constitutional: No Acute Distress and Comfortable
Cardiovascular: Regular Rate and S1/S2
Pulmonary: Clear
Gastrointestinal: Soft, Non Tender and Non Distended
Extremities: Negative Edema
Wound: Other (Right foot dressing dry. )
Neurological: AO x 3
Objective Data
Lab Data
Lab Results
05/21/25 06:14
05/21/25 06:14
Estimated Creat Clear 77 ml/min 05/21/25 06:14
Lactic Acid Cancelled 05/07/25 20:30
Total Bilirubin 1.2 mg/dl (0.2-1.3) 05/07/25 14:25
AST 30 U/L (17-59) 05/07/25 14:25
ALT 31 U/L (0-50) 05/07/25 14:25
Alkaline Phosphatase 127 U/L (38-126) H 05/07/25 14:25
Most recent labs reviewed.
Micro Results:
05/13/25 19:20 Wound Culture - Final
Foot - Left Serratia marcescens
Gram Stain - Final
05/13/25 19:20 Anaerobic Culture - Final
Wound-Deep Finegoldia magna
05/07/25 16:51 Blood Culture - Final
Blood/Venous No Growth - Final Report
05/07/25 16:54 Blood Culture - Final
Blood/Venous No Growth - Final Report
05/08/25 16:53 Wound Culture - Final
Toe Klebsiella oxytoca
Providencia alcalfaciens
Enterococcus faecalis
Gram Stain - Final
05/07/25 16:51 Wound Culture - Final
Toe Klebsiella oxytoca
Providencia alcalfaciens
Enterococcus faecalis
Gram Stain - Final
05/08/25 05:33 MRSA Screen - Final
Nose No Methicillin Resistant Staphylococcus aureus isolated.
05/08/25 Foot XRAY: Surgical amputation of the phalanges of the left great toe in the interval since study of preceding day.
05/07/25 Foot XRAY: Some suspected cortical lucency at least along the distal tip of the distal phalanx of left great toe, at least suspicious for osteomyelitis.
[2025-05-21] MEDS: LIPITOR 80 MG PO (20:30)
[2025-05-21 21:09] LABS: Glucose - Point of Care 129 mg/dl (70-99)
[2025-05-21 23:07] VITALS: BP 118/65
[2025-05-22] VITALS (7 sets, daily range): BP systolic 106–156; BP diastolic 47–65; PULSE 72–75; O2SAT 98
[2025-05-22] MEDS: ZOSYN 50 IV ×4 (02:45→20:40)
--- NOTE | 2025-05-22 07:48 | PN.DE.MGMTRT ---
Insulin Management
- -
05/22/2025: Diabetes Management Follow up
Patient admitted 05/07 with blisters and pain L great toe. Sent from Dr. Church's office for antibiotics and vascular procedure. PMH RBKA, HTN, severe distal small vessel obliterated PAD, diabetes, [place] 1 [place] ago. Prior to admission chart notes
patient was taking detemir 68 units daily with 14 units NovoLog AC , Jardiance 25 mg daily and metformin 1000 BID. States he sees [facility] for diabetes care. He used to take Levemir 68 units daily but was recently switched, he thinks to Lantus. A1C is
8.4%, cr 1.1, eGFR > 60.
Patient is awake alert and oriented, sitting up in bed, offers no complaints, able to discuss diabetes care.
POD #9 s/p 1st metatarsal head resection. Glucose range yesterday 74 to 163.
Fasting glucose this AM .
Will continue Lantus 56 units in AM, continue NovoLog 14 units with breakfast, 10 units novolog with lunch and dinner, with low corrective insulin with Farxiga 10 mg daily (takes Jardiance 25 mg daily) and metformin 1000 mg BID.
Discussed with nurse. Will cont to follow
Diabetes History
- -
Type of Diabetes: 2 requiring insulin
Pre-Admission Diabetes Regimen
05/21/25
06:14
Creatinine 1.0
Lab Results
Hemoglobin A1c 8.4 % (4.0-5.6) H 05/08/25 06:07
Insulin Pump Settings
IP Diabetes Regimen
05/21/25 05/21/25 05/21/25
06:14 11:24 16:30
Glucose 94
POC Glucose 163 H 74
05/21/25
21:07
Glucose
POC Glucose 129 H
Meal type: Dinner
Meal type: Lunch
Meal type: Breakfast
Amount consumed: 100%
Amount consumed: 100%
Amount consumed: 100%
Patient Education
[2025-05-22 08:01] LABS: Hematocrit 27.8 % (39.0-52.0); Hemoglobin 9.0 g/dL (13.0-18.0); Mean Corp Hgb Conc. 32.4 g/dL (33.0-37.0); Mean Corpuscular Volume 90.3 fL (80.0-94.0); Nucleated Red Blood Cells % 0 % (-); Platelet Count 520 10^3/uL (130-400); Red Cell Dist. Width 13.0 % (11.5-14.5)
[2025-05-22 08:03] LABS: Glucose - Point of Care 176 mg/dl (70-99)
[2025-05-22 09:17] LABS: Blood Urea Nitrogen 14 mg/dl (9-20); Calcium 8.4 mg/dl (8.4-10.2); Carbon Dioxide 29 mmol/L (22-30); Chloride 98 mmol/L (98-107); Estimated Creatinine Clearance 70 ml/min; Glucose 147 mg/dl (70-99); Potassium 4.6 mmol/L (3.5-5.1); Sodium 134 mmol/L (135-145); eGFR > 60.00
[2025-05-22] MEDS: NOVOLOG FLEXPEN-LOW RESISTANCE 1 UNITS SC (09:25)
[2025-05-22] MEDS: NOVOLOG FLEXPEN 14 UNITS SC (09:27)
[2025-05-22] MEDS: NEURONTIN 300 MG PO ×3 (09:28→20:39)
[2025-05-22] MEDS: LANTUS 0.56 UNITS SC (09:28)
[2025-05-22] MEDS: ELIQUIS 5 MG PO ×2 (09:29→20:39)
[2025-05-22] MEDS: CYMBALTA DELAYED RELEASE 60 MG PO (09:29)
[2025-05-22] MEDS: FARXIGA 10 MG PO (09:29)
[2025-05-22] MEDS: PLAVIX 75 MG PO (09:29)
[2025-05-22] MEDS: GLUCOPHAGE 1000 MG PO ×2 (09:30→17:41)
[2025-05-22] MEDS: FLUSH (NSS) 2 FLUSH IV ×2 (09:30→14:18)
[2025-05-22] MEDS: NOVOLOG FLEXPEN SC (09:32)
[2025-05-22] MEDS: ROXICODONE 5 MG PO ×2 (09:38→15:51)
[2025-05-22 11:53] LABS: Glucose - Point of Care 206 mg/dl (70-99)
--- NOTE | 2025-05-22 11:59 | CM ---
fresh food manager reviewed patient's chart and met with patient and spoke with patient's daughter, Lakia by phone, patient has been at [facility] in the past and patient and daughter, Lakia are requesting a referral to [facility], referral sent to [facility], per
patient's daughter Melania Castro are back up plans.
Plan; Referral sent to [facility] acute rehab. Needs PM&R evaluation.
[2025-05-22] MEDS: NOVOLOG FLEXPEN 10 UNITS SC ×2 (13:08→17:42)
[2025-05-22] MEDS: NOVOLOG FLEXPEN-LOW RESISTANCE 2 UNITS SC (13:08)
[2025-05-22] MEDS: LANOXIN 125 MCG PO (13:10)
--- NOTE | 2025-05-22 14:58 | W.PN.HOSP.TC ---
Today's Communication/Plan
-
Wound care
IV antibiotics
Adjust insulin regimen daily
Assessment / Plan
Assessment / Plan
This is a 74-year-old male with a past medical history of type 2 diabetes mellitus, severe distal small vessel obliterative PAD, right BKA, hypertension who presented to the ED with gangrene of the left great toe. Patient states that he had a
blister to the left great toe for several months, and has been increasing in size swelling and pain since. He was seen by vascular surgery Dr. Church today and was sent to the ER for IV antibiotics and possible admission. Patient denies fever, chills
or any other symptoms.
XR left foot: Some suspected cortical lucency at least along the distal tip of the distal phalanx of left great toe, mildly suspicious for osteomyelitis.
Assessment/plan:
# Left great toe gangrene without systemic illness
# History of severe distal small vessel obliterative PAD
# History of right BKA/ by Dr. Church
Wound culture 05/08/25 polymicrobial.
� S/p left open hallux amputation 05/08/24 with application of negative pressure wound therapy- dressing change 05/10/25.
- Status post first metatarsal head resection packed open on 05/13. Continue wound care
� Continue Zosyn, Vanco was discontinued based on cultures. Infectious disease following.
� Failed Limflow 05/09/25. Vascular surgery has been on board with planning attempt of repeat Limflow. Had conversation with vascular surgery and plan was taken for open TMA.
Status post left open TMA 05/17. Eliquis restarted post OP. Nonweightbearing left lower extremity per podiatry. Vascular following
� Continue Plavix
Restarted Eliquis
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
monitor
# Type 2 diabetes mellitus
� HbA1c 8.4% 05/08/25
Regimen has been adjusted.
Currently on Lantus 56/aspart 14 AC with addition of Farxiga and metformin. BS high, inc insulin
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
# Chronic hypotension
� Continue midodrine 5 Mg p.o. daily.
# Hyperlipidemia
� Continue statin.
# Mild hyponatremia
� monitor
#Obesity due to excess calories
DVT prophylaxis: eliquis
CODE STATUS: Full
Anticipated Discharge: > 48 hours
Subjective/Interval History
-
Date of Service: May 22, 2025
Objective Data
-
Labs:
Laboratory Results
05/22/25
06:12
WBC 9.3
Hgb 9.0 L
Hct 27.8 L
Plt Count 520 H
Sodium 134 L
Potassium 4.6
Chloride 98
Carbon Dioxide 29
BUN 14
Creatinine 1.1
Glucose 147 H
Calcium 8.4
Vital Signs:
Vital Signs
Temp Pulse Resp BP Pulse Ox
97.9 F 76 18 126/58 97
05/22/25 08:23 05/22/25 08:23 05/22/25 08:23 05/22/25 08:23 05/22/25 08:23
I&O
05/21/25 05/22/25 05/23/25
06:59 06:59 06:59
Intake Total 1060 / 1060 2980 / 2980
Output Total 2400 / 2400 1375 / 1375
Balance -1340 / -1340 1605 / 1605
Physical Exam
-
General: Well Developed and No Apparent Distress
HEENT: Normocephalic, Atraumatic and Moist Mucous Membranes
Respiratory: Clear to Auscultation
Cardiac: Regular Rhythm and S1/S2; Negative Murmur, Rub or Gallop
GI: Soft, Nontender, Nondistended and Normal Bowel Sounds; Negative Organomegaly
Rectal: Deferred by Provider
Musculoskeletal: No Clubbing, No Cyanosis and No Edema
Skin: Negative Rash
Neuro: Nonfocal/Grossly Intact
[2025-05-22 16:28] LABS: Glucose - Point of Care 84 mg/dl (70-99)
[2025-05-22] MEDS: NOVOLOG FLEXPEN-LOW RESISTANCE SC (17:40)
[2025-05-22] MEDS: LIPITOR 80 MG PO (20:39)
[2025-05-22 21:12] LABS: Glucose - Point of Care 178 mg/dl (70-99)
[2025-05-23] MEDS: ZOSYN 50 IV ×4 (01:35→20:01)
[2025-05-23 06:57] LABS: Glucose - Point of Care 117 mg/dl (70-99)
[2025-05-23 07:00] VITALS: BP 115/59
--- NOTE | 2025-05-23 07:33 | PN.DE.MGMTRT ---
Insulin Management
- -
05/23/2025: Diabetes Management Follow up
Patient admitted 05/07 with blisters and pain L great toe. Sent from Dr. Church's office for antibiotics and vascular procedure. PMH RBKA, HTN, severe distal small vessel obliterated PAD, diabetes, [place] 1 month ago. Prior to admission chart notes
patient was taking detemir 68 units daily with 14 units NovoLog AC , Jardiance 25 mg daily and metformin 1000 BID. States he sees [facility] for diabetes care. He used to take Levemir 68 units daily but was recently switched, he thinks to Lantus. A1C is
8.4%, cr 1.1, eGFR > 60.
Patient is awake alert and oriented, sitting up in bed, offers no complaints, able to discuss diabetes care.
POD #10 s/p 1st metatarsal head resection. Glucose range yesterday 84 to 206.
Fasting glucose this AM 117.
Will continue Lantus 56 units in AM, continue NovoLog 14 units with breakfast, 10 units novolog with lunch and dinner, with low corrective insulin with Farxiga 10 mg daily (takes Jardiance 25 mg daily) and metformin 1000 mg BID.
Discussed with nurse. Will cont to follow
Diabetes History
- -
Type of Diabetes: 2 requiring insulin
Pre-Admission Diabetes Regimen
05/22/25
06:12
Creatinine 1.1
Lab Results
Hemoglobin A1c 8.4 % (4.0-5.6) H 05/08/25 06:07
Insulin Pump Settings
IP Diabetes Regimen
05/22/25 05/22/25 05/22/25
06:12 08:01 11:49
Glucose 147 H
POC Glucose 176 H 206 H
05/22/25 05/22/25 05/23/25
16:27 21:10 06:55
Glucose
POC Glucose 84 178 H 117 H
Meal type: Dinner
Meal type: Lunch
Meal type: Breakfast
Amount consumed: 100%
Amount consumed: 100%
Amount consumed: 100%
Patient Education
[2025-05-23 08:17] LABS: Hematocrit 26.6 % (39.0-52.0); Hemoglobin 8.6 g/dL (13.0-18.0); Mean Corp Hgb Conc. 32.3 g/dL (33.0-37.0); Mean Corpuscular Volume 89.6 fL (80.0-94.0); Nucleated Red Blood Cells % 0 % (-); Platelet Count 476 10^3/uL (130-400); Red Cell Dist. Width 13.2 % (11.5-14.5)
[2025-05-23] MEDS: NOVOLOG FLEXPEN-LOW RESISTANCE SC ×3 (08:21→17:28)
[2025-05-23] MEDS: ELIQUIS 5 MG PO ×2 (08:23→20:01)
[2025-05-23] MEDS: FARXIGA 10 MG PO (08:23)
[2025-05-23] MEDS: NEURONTIN 300 MG PO ×3 (08:23→20:02)
[2025-05-23] MEDS: PLAVIX 75 MG PO (08:23)
[2025-05-23] MEDS: GLUCOPHAGE 1000 MG PO ×2 (08:23→17:30)
[2025-05-23] MEDS: CYMBALTA DELAYED RELEASE 60 MG PO (08:23)
[2025-05-23] MEDS: LANTUS 0.56 UNITS SC (08:24)
[2025-05-23] MEDS: FLUSH (NSS) 2 FLUSH IV ×2 (08:24→14:53)
[2025-05-23] MEDS: NOVOLOG FLEXPEN 14 UNITS SC (08:25)
[2025-05-23] MEDS: TYLENOL 650 MG PO (08:28)
[2025-05-23 11:00] VITALS: BP 100/55
[2025-05-23 11:39] LABS: Glucose - Point of Care 136 mg/dl (70-99)
--- NOTE | 2025-05-23 12:04 | W.PN.ID1 ---
Date of Service
Date of Service: May 23, 2025
Today's Communication
Continue Zosyn for now.
Assessment / Plan
# Left hallux gangrene and osteo
# Severe PAD, not amenable to revascularization
# Leukocytosis,
# Post-op fever, resolved
# DM
# hx R BKA
- 05/08 s/p left great toe open amputation
OR cx: E. faecalis, Providencia, Klebsiella oxytoca
- 05/09 failed attempt Limflow.
-05/13/25 Left 1st ray incision wtih debridement to level of bone. Noted to have significant purulence and necrotizing deep tissue, poor perfusion, foot deemed nonsalvageable per Podiatry OR cx: Serratia
-05/17 s/p open TMA and monitor for wound healing
- Possible reattempt Limflow
- Continue Zosyn (d16). Of note, antibiotic unlikely to reach therapeutic level at target site due to severe PAD.
Chief Complaint
-: Other (toe gangrene)
Subjective / Review of Systems
Foot stopped bleeding.
Vital Signs / Physical Exam
Vital Signs
Vital Signs
Temp Pulse Resp BP Pulse Ox
97.5 F 78 12 115/59 96
05/23/25 07:00 05/23/25 07:00 05/23/25 07:00 05/23/25 07:00 05/23/25 07:00
Physical Exam
Constitutional: No Acute Distress
Gastrointestinal: Soft, Non Tender and Non Distended
Wound: Other (left foot dressing dry)
Objective Data
Lab Data
Lab Results
05/23/25 06:20
05/22/25 06:12
Estimated Creat Clear 70 ml/min 05/22/25 06:12
Lactic Acid Cancelled 05/07/25 20:30
Total Bilirubin 1.2 mg/dl (0.2-1.3) 05/07/25 14:25
AST 30 U/L (17-59) 05/07/25 14:25
ALT 31 U/L (0-50) 05/07/25 14:25
Alkaline Phosphatase 127 U/L (38-126) H 05/07/25 14:25
Most recent labs reviewed.
Micro Results:
05/13/25 19:20 Wound Culture - Final
Foot - Left Serratia marcescens
Gram Stain - Final
05/13/25 19:20 Anaerobic Culture - Final
Wound-Deep Finegoldia magna
05/07/25 16:51 Blood Culture - Final
Blood/Venous No Growth - Final Report
05/07/25 16:54 Blood Culture - Final
Blood/Venous No Growth - Final Report
05/08/25 16:53 Wound Culture - Final
Toe Klebsiella oxytoca
Providencia alcalfaciens
Enterococcus faecalis
Gram Stain - Final
05/07/25 16:51 Wound Culture - Final
Toe Klebsiella oxytoca
Providencia alcalfaciens
Enterococcus faecalis
Gram Stain - Final
05/08/25 05:33 MRSA Screen - Final
Nose No Methicillin Resistant Staphylococcus aureus isolated.
05/08/25 Foot XRAY: Surgical amputation of the phalanges of the left great toe in the interval since study of preceding day.
05/07/25 Foot XRAY: Some suspected cortical lucency at least along the distal tip of the distal phalanx of left great toe, at least suspicious for osteomyelitis.
[2025-05-23] MEDS: NOVOLOG FLEXPEN 10 UNITS SC ×2 (12:24→17:29)
[2025-05-23] MEDS: LANOXIN 125 MCG PO (12:25)
--- NOTE | 2025-05-23 13:54 | W.PN.HOSP.TC ---
Today's Communication/Plan
-
Discussed with vascular
Plan is for wound care and follow-up in approximately 2 weeks
Antibiotic therapy as per ID
Assessment / Plan
Assessment / Plan
This is a 74-year-old male with a past medical history of type 2 diabetes mellitus, severe distal small vessel obliterative PAD, right BKA, hypertension who presented to the ED with gangrene of the left great toe. Patient states that he had a
blister to the left great toe for several months, and has been increasing in size swelling and pain since. He was seen by vascular surgery Dr. Church today and was sent to the ER for IV antibiotics and possible admission. Patient denies fever, chills
or any other symptoms.
XR left foot: Some suspected cortical lucency at least along the distal tip of the distal phalanx of left great toe, mildly suspicious for osteomyelitis.
Assessment/plan:
# Left great toe gangrene without systemic illness
# History of severe distal small vessel obliterative PAD
# History of right BKA/ by Dr. Church
Wound culture 05/08/25 polymicrobial.
� S/p left open hallux amputation 05/08/24 with application of negative pressure wound therapy- dressing change 05/10/25.
- Status post first metatarsal head resection packed open on 05/13. Continue wound care
� Continue Zosyn, Vanco was discontinued based on cultures. Infectious disease following.
� Failed Limflow 05/09/25. Vascular surgery has been on board with planning attempt of repeat Limflow. Had conversation with vascular surgery and plan was taken for open TMA.
Status post left open TMA 05/17. Eliquis restarted post OP. Nonweightbearing left lower extremity per podiatry. Vascular following
� Continue Plavix
Restarted Eliquis
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
monitor
# Type 2 diabetes mellitus
� HbA1c 8.4% 05/08/25
Regimen has been adjusted.
Currently on Lantus 56/aspart 14 AC with addition of Farxiga and metformin. BS high, inc insulin
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
# Chronic hypotension
� Continue midodrine 5 Mg p.o. daily.
# Hyperlipidemia
� Continue statin.
# Mild hyponatremia
� monitor
#Obesity due to excess calories
DVT prophylaxis: eliquis
CODE STATUS: Full
Anticipated Discharge: 24 - 48 hours
Subjective/Interval History
-
Date of Service: May 23, 2025
Objective Data
-
Labs:
Laboratory Results
05/23/25
06:20
WBC 9.0
Hgb 8.6 L
Hct 26.6 L
Plt Count 476 H
Vital Signs:
Vital Signs
Temp Pulse Resp BP Pulse Ox
97.5 F 66 16 100/55 99
05/23/25 11:00 05/23/25 11:00 05/23/25 11:00 05/23/25 11:00 05/23/25 11:00
I&O
05/22/25 05/23/25 05/24/25
06:59 06:59 06:59
Intake Total 2980 / 2980 960 / 960
Output Total 1375 / 1375 1000 / 1000
Balance 1605 / 1605 -40 / -40
[2025-05-23] MEDS: ROXICODONE 5 MG PO (14:53)
[2025-05-23 15:00] VITALS: BP 109/50
[2025-05-23 16:10] LABS: Glucose - Point of Care 136 mg/dl (70-99)
--- NOTE | 2025-05-23 17:22 | CM ---
Pt wants [facility] [place] [facility]
Requested PM&R consult from .
Pt may need another surgery prior to discharge.
Continue with wound care and PT /OT.
ON IV antibiotic .
PLAN Acute rehab /SNF
[2025-05-23] MEDS: LIPITOR 80 MG PO (20:01)
[2025-05-23 21:46] LABS: Glucose - Point of Care 119 mg/dl (70-99)
[2025-05-23 22:55] VITALS: BP 97/72
[2025-05-24] MEDS: ZOSYN 50 IV ×2 (02:37→09:15)
[2025-05-24] MEDS: DILAUDID 0.5 MG IV ×2 (02:42→19:35)
[2025-05-24 07:00] VITALS: BP 114/58
[2025-05-24 07:05] VITALS: BP 112/53; BP 114/58; PULSE 67; PULSE 71
[2025-05-24 07:07] LABS: Glucose - Point of Care 109 mg/dl (70-99)
--- NOTE | 2025-05-24 07:41 | PN.DE.MGMTRT ---
Insulin Management
- -
05/24/2025: Diabetes Management Follow up
Patient admitted 05/07 with blisters and pain L great toe. Sent from Dr. Church's office for antibiotics and vascular procedure. PMH RBKA, HTN, severe distal small vessel obliterated PAD, diabetes, [place] 1 month ago. Prior to admission chart notes
patient was taking detemir 68 units daily with 14 units NovoLog AC , Jardiance 25 mg daily and metformin 1000 BID. States he sees [facility] for diabetes care. He used to take Levemir 68 units daily but was recently switched, he thinks to Lantus. A1C is
8.4%, cr 1.1, eGFR > 60.
Patient is awake alert and oriented, sitting up in bed, offers no complaints, able to discuss diabetes care.
POD #11 s/p 1st metatarsal head resection. Glucose range yesterday 84 to 206.
Fasting glucose this AM 109 POC. Will continue Lantus 56 units in AM.
Premeal glucose range yesterday was 117 to 136, will continue NovoLog 14 units with breakfast, 10 units NovoLog with lunch and dinner, with low corrective insulin with Farxiga 10 mg daily (takes Jardiance 25 mg daily) and metformin 1000 mg BID.
Discussed with nurse. Will cont to follow
Diabetes History
- -
Type of Diabetes: 2 requiring insulin
Pre-Admission Diabetes Regimen
Lab Results
Hemoglobin A1c 8.4 % (4.0-5.6) H 05/08/25 06:07
Insulin Pump Settings
IP Diabetes Regimen
05/23/25 05/23/25 05/23/25
11:37 16:08 21:45
POC Glucose 136 H 136 H 119 H
05/24/25
07:05
POC Glucose 109 H
Meal type: Dinner
Meal type: Lunch
Meal type: Breakfast
Amount consumed: 95%
Amount consumed: 100%
Amount consumed: 100%
Patient Education
[2025-05-24] MEDS: NOVOLOG FLEXPEN-LOW RESISTANCE SC ×2 (09:13→16:13)
[2025-05-24] MEDS: NOVOLOG FLEXPEN 14 UNITS SC (09:14)
[2025-05-24] MEDS: LANTUS 0.56 UNITS SC (09:15)
[2025-05-24] MEDS: CYMBALTA DELAYED RELEASE 60 MG PO (09:15)
[2025-05-24] MEDS: ELIQUIS 5 MG PO ×2 (09:16→19:35)
[2025-05-24] MEDS: NEURONTIN 300 MG PO ×3 (09:16→21:19)
[2025-05-24] MEDS: GLUCOPHAGE 1000 MG PO ×2 (09:16→16:10)
[2025-05-24] MEDS: PLAVIX 75 MG PO (09:16)
[2025-05-24] MEDS: FARXIGA 10 MG PO (09:16)
[2025-05-24] MEDS: ROXICODONE 5 MG PO ×2 (09:18→13:35)
--- NOTE | 2025-05-24 09:38 | CM ---
Pt wants [facility] [place] .
[facility] aware of case [facility] will follow .
Requested PM&R consult from .
Pt may need another surgery prior to discharge.
Continue with wound care and PT /OT.
On IV antibiotic .
Pt has medicare.
PLAN Acute rehab /SNF
[2025-05-24 11:07] LABS: Glucose - Point of Care 178 mg/dl (70-99)
[2025-05-24] MEDS: NOVOLOG FLEXPEN-LOW RESISTANCE 1 UNITS SC (12:01)
[2025-05-24] MEDS: NOVOLOG FLEXPEN 10 UNITS SC ×2 (12:02→16:45)
[2025-05-24] MEDS: LANOXIN 125 MCG PO (12:04)
--- NOTE | 2025-05-24 12:11 | W.PN.ID1 ---
Date of Service
Date of Service: May 24, 2025
Today's Communication
DC Zosyn.
ID will sign off.
Assessment / Plan
# Left hallux gangrene and osteo
# Severe PAD, not amenable to revascularization
# Leukocytosis,
# Post-op fever, resolved
# DM
# hx R BKA
- 05/08 s/p left great toe open amputation
OR cx: E. faecalis, Providencia, Klebsiella oxytoca
- 05/09 failed attempt Limflow.
-05/13/25 Left 1st ray incision wtih debridement to level of bone. Noted to have significant purulence and necrotizing deep tissue, poor perfusion, foot deemed nonsalvageable per Podiatry OR cx: Serratia
-05/17 s/p TMA and monitor for wound healing
- No further plans for Limflow attempt
- Discontinue Zosyn (d17).
ID will sign off.
Chief Complaint
-: Other (toe gangrene)
Subjective / Review of Systems
No new complaints.
Vital Signs / Physical Exam
Vital Signs
Vital Signs
Temp Pulse Resp BP Pulse Ox
97.9 F 82 16 112/53 97
05/24/25 07:00 05/24/25 12:04 05/24/25 07:00 05/24/25 09:19 05/24/25 08:30
Physical Exam
Constitutional: No Acute Distress and Comfortable
Gastrointestinal: Soft, Non Tender and Non Distended
Wound: Other (left foot dressing dry)
Neurological: AO x 3
Objective Data
Lab Data
Lab Results
05/23/25 06:20
05/22/25 06:12
Estimated Creat Clear 70 ml/min 05/22/25 06:12
Lactic Acid Cancelled 05/07/25 20:30
Total Bilirubin 1.2 mg/dl (0.2-1.3) 05/07/25 14:25
AST 30 U/L (17-59) 05/07/25 14:25
ALT 31 U/L (0-50) 05/07/25 14:25
Alkaline Phosphatase 127 U/L (38-126) H 05/07/25 14:25
Most recent labs reviewed.
Micro Results:
05/13/25 19:20 Wound Culture - Final
Foot - Left Serratia marcescens
Gram Stain - Final
05/13/25 19:20 Anaerobic Culture - Final
Wound-Deep Finegoldia magna
05/07/25 16:51 Blood Culture - Final
Blood/Venous No Growth - Final Report
05/07/25 16:54 Blood Culture - Final
Blood/Venous No Growth - Final Report
05/08/25 16:53 Wound Culture - Final
Toe Klebsiella oxytoca
Providencia alcalfaciens
Enterococcus faecalis
Gram Stain - Final
05/07/25 16:51 Wound Culture - Final
Toe Klebsiella oxytoca
Providencia alcalfaciens
Enterococcus faecalis
Gram Stain - Final
05/08/25 05:33 MRSA Screen - Final
Nose No Methicillin Resistant Staphylococcus aureus isolated.
05/08/25 Foot XRAY: Surgical amputation of the phalanges of the left great toe in the interval since study of preceding day.
05/07/25 Foot XRAY: Some suspected cortical lucency at least along the distal tip of the distal phalanx of left great toe, at least suspicious for osteomyelitis.
Care Review
Plan reviewed with: Physician (Dr. Ortega)
--- NOTE | 2025-05-24 13:35 | CON.MR ---
Documented by User: Jared Valadez MD, Resident 05/24/25 18:07
Consultation
Consultation Request
Date/Time Consultation Requested: 05/24/25
Date/Time Consultation Performed: 05/24/2025
Requesting Provider: Leif Davalos
Performing Provider: Dr. Mcneal
Reason for Consultation: rehab eval, L TMA
Medical History
-
Chief Complaint: Left toe infection
History of Present Illness:
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
Patient was sent in by Dr. Church on 05/07/2025 with concern for cellulitis in the setting of peripheral arterial disease. He initially noticed a blood blister to the left hallux about a week ago as a result of putting his prosthetic shoe on and off. He
had noticed it getting worse. He was admitted to the hospital and started on IV antibiotics, and x-ray showed cortical lucency of the left great toe suspicious for osteomyelitis. Patient was taken to the OR for open amputation of the left hallux.
Patient received IV antibiotic treatment and there was plan to go to the OR for limb flow procedure. However procedure was unsuccessful. He was taken back to the OR for duplex cannulation of left plantar vein and venography with Dr. Church on 05/09.
On 05/17 patient was taken back to the OR for left open TMA. Vascular surgery with no further plans for limb flow procedure. ID discontinued IV antibiotics on 05/24.
Past Medical History
Past Medical History: Hypercholesterolemia, NIDDM and Other (Chronic hypotension, obesity)
Past Surgical History: Orthopedic (Right lower extremity BKA)
Family History
Family History: Reviewed & Not Pertinent
Social History
Functional Level Premorbidity:
Independent for all activities.
Used cane and wheelchair
Current Funct Level: Ambulation, Transfer, UE/LE Dressing:
Bed mobility: Mod I
Transfers: Sit to stand dependent, stand pivot min a
Ambulation: Not assessed
ADL: Eating independent, grooming set up, toileting mod A, upper extremity care supervision, lower extremity extremity care min a
Tobacco: Former Smoker (40y ago)
Alcohol: None
Drug: None
Personal: Single
Living: With Family
Is 24 hour care available: No
Number of Floors: 1
# Steps to Enter: Stair glide to enter
# Steps to Second Floor: 0
Potential First Floor Set Up: Yes
Driving: No
Employment: Retired
Allergies / Home Medications
Allergy/AdvReac Type Severity Reaction Status Date / Time
No Known Allergies Allergy Verified 10/15/24 12:48
�Medication �Instructions �Recorded �Confirmed �Last Taken �Type
empagliflozin 25 mg tablet 25 mg PO DAILY #90 tabs 04/28/23 05/07/25 10/15/24 Rx
(Jardiance)
atorvastatin 80 mg tablet (Lipitor) 80 mg PO HS High cholesterol 10/15/24 05/07/25 05/06/25 History
cholecalciferol (vitamin D3) 25 1,000 unit PO HS Supplement 10/15/24 05/07/25 10/15/24 History
mcg (1,000 unit) capsule (Vitamin
D3)
gabapentin 300 mg capsule 300 mg PO TID 10/15/24 05/07/25 05/06/25 History
insulin aspart U-100 100 unit/mL 14 unit SC AC Diabetes 10/15/24 05/07/25 05/07/25 History
(3 mL) subcutaneous pen
insulin detemir U-100 100 unit/mL 68 unit SC DAILY 10/15/24 05/07/25 05/07/25 History
(3 mL) subcutaneous pen
pentoxifylline 400 mg 400 mg PO TID leg circulation 10/15/24 05/07/25 10/15/24 History
tablet,extended release
zinc acetate 50 mg (zinc) capsule 30 mg PO HS 10/15/24 05/07/25 10/15/24 History
clopidogrel 75 mg tablet 75 mg PO DAILY 10/17/24 05/07/25 05/06/25 History
apixaban 5 mg tablet (Eliquis) 5 mg PO BID 05/07/25 05/07/25 05/07/25 08:00 History
digoxin 125 mcg (0.125 mg) tablet 125 mcg PO DAILY 05/07/25 05/07/25 Unknown History
duloxetine 60 mg capsule,delayed 60 mg PO DAILY 05/07/25 05/07/25 Unknown History
release
metformin 500 mg tablet 1,000 mg PO BID@0800,1700 05/07/25 05/07/25 Unknown History
midodrine 5 mg tablet 5 mg PO DAILY 05/07/25 05/07/25 Unknown History
Review Of Systems
-
History Source: Patient
Constitutional: Reports No Symptoms; Denies Fever or Fatigue
Eye: Reports No Symptoms; Denies Tearing or Visual Field Cut
EENT: Reports No Symptoms; Denies Tearing or Runny Nose
Respiratory: Reports No Symptoms; Denies Cough or Trouble Breathing
Cardiac: Reports No Symptoms; Denies Chest Pain or Palpitations
Abdomen/GI: Reports No Symptoms; Denies Abdominal Pain, Nausea, Vomiting, Diarrhea or Constipated
: Reports No Symptoms; Denies Dysuria
Musculoskeletal: Reports No Symptoms; Denies Joint Pain
Integumentary: Reports No Symptoms
Neurological: Reports No Symptoms; Denies Dizzy or Headache
Physical Exam
Active Medications
Generic Name Dose Route Start Last Admin
Trade Name Freq PRN Reason Stop Dose Admin
Acetaminophen 650 mg 05/08/25 18:35 05/23/25 08:28
Acetaminophen 325 Mg Tablet PO 06/05/25 18:34 650 mg
Q4HPRN PRN Administration
mild pain/YAN/temp > 100.4F
Apixaban 5 mg 05/18/25 20:00 05/24/25 09:16
Apixaban (Eliquis) 5 Mg Tablet PO 06/15/25 19:59 5 mg
BID LILLIAM Administration
Atorvastatin Calcium 80 mg 05/07/25 22:00 05/23/25 20:01
Atorvastatin (Lipitor) 80 Mg Tablet PO 06/04/25 21:59 80 mg
HS LILLIAM Administration
Bisacodyl 10 mg 05/07/25 20:09
Bisacodyl 10 Mg Rectal Suppository RECTAL 06/04/25 20:08
[id number] PRN
constipation
Clopidogrel Bisulfate 75 mg 05/09/25 11:00 05/24/25 09:16
Clopidogrel 75 Mg Tablet PO 06/06/25 10:59 75 mg
DAILY LILLIAM Administration
Dapagliflozin 10 mg 05/14/25 08:00 05/24/25 09:16
Dapagliflozin (Farxiga) 10 Mg Tablet PO 06/11/25 07:59 10 mg
DAILY LILLIAM Administration
Dextrose 12.5 grams 05/07/25 20:09
Dextrose 50% (0.5 Grams/Ml) 50 Ml Syringe IV 06/04/25 20:08
[id number] PRN
hypoglycemia
Protocol
Digoxin 125 mcg 05/08/25 12:00 05/24/25 12:04
Digoxin 125 Mcg Tablet PO 06/05/25 11:59 125 mcg
NOON LILLIAM Administration
Duloxetine HCl 60 mg 05/08/25 08:00 05/24/25 09:15
Duloxetine Delayed Release 60 Mg Capsule PO 06/05/25 07:59 60 mg
DAILY LILLIAM Administration
Gabapentin 300 mg 05/07/25 22:00 05/24/25 09:16
Gabapentin 300 Mg Capsule PO 06/04/25 21:59 300 mg
TID LILLIAM Administration
Glucagon 1 mg 05/07/25 20:09
Glucagon 1 Mg Vial IM 06/04/25 20:08
PRN PRN
hypoglycemia
Protocol
Hydromorphone HCl 0.5 mg 05/18/25 12:03 05/24/25 02:42
Hydromorphone 0.5 Mg/0.5 Ml Syringe IV 06/01/25 12:02 0.5 mg
Q4HPRN PRN Administration
severe pain
Insulin Glargine 56 units/ 0.56 mls @ 0 mls/hr 05/21/25 08:00 05/24/25 09:15
Device SC 06/18/25 07:59 0.56 mls
DAILY LILLIAM Administration
As Directed
Insulin Aspart 0 units 05/15/25 08:00 05/24/25 12:01
Insulin Aspart Low Resistance 300 Units/3 Ml Pen.Injctr SC 06/12/25 07:59 1 units
AC LILLIAM Administration
Protocol
Insulin Aspart 14 units 05/22/25 08:00 05/24/25 09:14
Insulin Aspart (Novolog) 100 Units/Ml 3 Ml Flexpen SC 06/19/25 07:59 14 units
DAILY@0800 LILLIAM Administration
Insulin Aspart 10 units 05/22/25 11:30 05/24/25 12:02
Insulin Aspart (Novolog) 100 Units/Ml 3 Ml Flexpen SC 06/19/25 11:29 10 units
DAILY@1130,1730 LILLIAM Administration
Metformin HCl 1,000 mg 05/14/25 08:00 05/24/25 09:16
Metformin 1000 Mg Regular Release Tablet PO 06/11/25 07:59 1,000 mg
BID@0800,1700 LILLIAM Administration
Midodrine 5 mg 05/08/25 08:00 05/24/25 09:19
Midodrine 5 Mg Tablet PO 06/05/25 07:59 5 mg
DAILY LILLIAM Administration
Ondansetron HCl 4 mg 05/07/25 20:09
Ondansetron 4 Mg/2 Ml Vial IV 06/04/25 20:08
Q6HPRN PRN
nausea and vomiting
Oxycodone HCl 5 mg 05/23/25 13:00 05/24/25 09:18
Oxycodone 5 Mg Regular Release Tablet PO 06/06/25 12:59 5 mg
Q4HPRN PRN Administration
severe pain
Polyethylene Glycol 17 grams 05/07/25 20:09 05/16/25 12:27
Polyethylene Glycol Powder 17 Grams Packet PO 06/04/25 20:08 17 grams
DAILYPRN PRN Administration
constipation
Senna/Docusate Sodium 1 tablet 05/07/25 20:09 05/14/25 00:09
Docusate W/Senna (Orquidea-Colace) Tablet PO 06/04/25 20:08 1 tablet
BIDPRN PRN Administration
constipation
Sodium Chloride 0 flush 05/07/25 21:00 05/23/25 14:53
Sodium Chloride 0.9% (Flush) Syringe IV 06/04/25 20:59 2 flush
PER PROTOCOL LILLIAM Administration
Vital Signs
Temp Pulse Resp BP Pulse Ox
97.9 F 82 16 112/53 97
05/24/25 07:00 05/24/25 12:04 05/24/25 07:00 05/24/25 09:19 05/24/25 08:30
Height 5 ft 10 in
Actual Weight 103.589 kg
Body Mass Index (BMI) 32.8
Physical Exam
Physical Exam:
General Appearance/Observation: Well-developed, well-nourished individual in no apparent distress.
Pain/Comfort Assessment: Denies
Mood/Affect: Appropriate
Integumentary/Operative Site:
Pressure Ulcer: absent
Other Type of Wound: s/p L TMA
Eyes: Conjunctiva/Lids: normal Pupils: pupils equal round and reactive to light and Accommodation
Ears/Nose/Throat: oral mucosa moist, throat clear. Lips/Teeth/Gums: normal
Neck: No muscle spasm or tenderness
Cardiovascular: Heart: regular rate, regular rhythm, no murmur
Pulses: Deferred
Respiratory: Respiratory Effort/Chest Expansion: normal Auscultation: Clear to auscultation bilaterally
Gastrointestinal: abdomen not tender, no distension, normal abdominal bowel sounds
Genitourinary: No Scott
Rectal Exam: Deferred
Extremities: Edema: None Cyanosis: None Trophic changes: None
Neurology Exam:
Orientation: Alert, Oriented to self, Time, Place, situation
Memory: Intact immediately and at 3 minutes
Higher cortical function
Speech: Intact
Repetition: Intact
Comprehension: Intact
Two step command: Intact
Naming: Intact
Cranial Nerves:
CNII: Pupillary light reflex: Intact Visual Field: Intact
CN III, IV, : Extraocular muscles: Intact
CN V: Facial Sensation at Forehead: Intact , Maxilla: Intact, Mandible: Intact
CN VII: Facial movement: Symmetric
CN VIII: Hearing: Normal
CN IX/X: Speech & swallow: Normal, Position of Uvula: Midline
CN XI: Shoulder shrug: Symmetric
CN XII: Tongue protrusion: Midline
Sensory:
Light touch: Intact in bilateral upper and decreased in L lower extremity to knee
Pinprick: deferred
Proprioception: deferred
Temperature: deferred
Reflexes:
Biceps: 0 bilaterally
Brachioradialis: 0 bilaterally
Triceps: 0 bilaterally
Patellar: 0 bilaterally
Achilles: deferred
Babinski: deferred
Clonus: None
Francisco: Negative bilaterally
Cerebellar: Dysmetria/Ataxia: None
Musculoskeletal:
Motor: (Manual muscle scale 0-5)
Muscle SA EF WE EE FF FA HF KE DF EHL PF
Right 5 5 5 5 5 5 5 5 - - -
Left 5 5 5 5 5 4 5 5 - - -
Tone: Normal in all extremities
Range of Motion: Passively within normal limits in all extremities
Lab Results
05/23/25 06:20
05/22/25 06:12
WBC 9.0 10^3/uL (4.8-10.8) 05/23/25 06:20
Hgb 8.6 g/dL (13.0-18.0) L 05/23/25 06:20
Hct 26.6 % (39.0-52.0) L 05/23/25 06:20
MCV 89.6 fL (80.0-94.0) 05/23/25 06:20
Plt Count 476 10^3/uL (130-400) H 05/23/25 06:20
Sodium 134 mmol/L (135-145) L 05/22/25 06:12
Potassium 4.6 mmol/L (3.5-5.1) 05/22/25 06:12
Chloride 98 mmol/L (98-107) 05/22/25 06:12
Carbon Dioxide 29 mmol/L (22-30) 05/22/25 06:12
BUN 14 mg/dl (9-20) 05/22/25 06:12
Creatinine 1.1 mg/dL (0.7-1.3) 05/22/25 06:12
eGFR > 60.00 05/22/25 06:12
Glucose 147 mg/dl (70-99) H 05/22/25 06:12
Hemoglobin A1c 8.4 % (4.0-5.6) H 05/08/25 06:07
Calcium 8.4 mg/dl (8.4-10.2) 05/22/25 06:12
Magnesium 1.8 mg/dl (1.6-2.3) 05/13/25 06:08
Total Bilirubin 1.2 mg/dl (0.2-1.3) 05/07/25 14:25
AST 30 U/L (17-59) 05/07/25 14:25
ALT 31 U/L (0-50) 05/07/25 14:25
Alkaline Phosphatase 127 U/L (38-126) H 05/07/25 14:25
Total Protein 8.0 g/dl (6.3-8.2) 05/07/25 14:25
Albumin 4.1 g/dl (3.5-5.0) 05/07/25 14:25
Diagnostic Results
As per HPI.
Comorbidities / Impairment Group
Assessment / Plan
Assessment
The patient is a 74-year-old male with type 2 diabetes who presents with gangrenous changes to the left hallux being seen by Vascular for possible limb flow procedure. Concern for osteomyelitis of the left hallux with overlying cellulitis.
Plan
PM&R PT/OT to increase independence with ADLs, improve balance, coordination, endurance, strength, mobility, community reintegration, decreased burden of care on others and family education.
Peripheral polyneuropathy: Patient with a stocking and glove polyneuropathy distribution pattern. There are many potential etiologies of this type of neuropathy. Suggest getting an EMG/nerve conduction study which can be done inpatient or if
necessary as an outpatient. This will help limit the differential diagnosis. Common etiologies include diabetes, alcohol use, B12, thyroid disorder, autoimmune concerns. It is reasonable to check a B12, TSH, and hemoglobin A1c to start. Patient at
high risk of falling with subsequent significant neuropathy.
Status post L TMA: Monitor incision, pain control, incision care per orthopedics. Maintain full range of motion.
HLD: statin
DM II: Accu-Cheks, insulin sliding scale, metformin, lispro, lantus.
Anemia: Likely multifactorial. Continue to monitor.
Skin: monitor for pressure sores/rashes/lesions.
Pain: acetaminophen or oxycodone as needed.
Bowel: Colace and Senna, PRN bisacodyl.
Bladder: Time void, PVRs, PRN straight cath.
GI Prophylaxis: Pantoprazole
DVT Prophylaxis: on eliquis
Safety: Continue to reinforce assistance with all transfers.
Code Status: Full code or DNR
Dispo : Acute rehab PT/OT to increase independence with ADLs, improve balance, coordination, endurance, strength, mobility, community reintegration, decreased burden of care on others and family education.
Functional and Medical Goals: Modified Independent with ADL�s, ambulation, transfers
Summary
-
Things that must be addressed in Hospital prior to discharge:
Patient must be stable on oral pain medications.
Blood pressure must be less than 180 systolic and 100 diastolic for 24 hours before being stable for transfer to SNF/acute rehab.
Please comment on ROM, bracing and duration of weight bearing precautions.
Please comment on dvt chemoprophylaxis restrictions.
Discharge Destination: Acute rehab PT/OT to increase independence with ADLs, improve balance, coordination, endurance, strength, mobility, community reintegration, decreased burden of care on others and family education.
Summary of recommendations:
- Discharge Destination: Acute rehab PT/OT to increase independence with ADLs, improve balance, coordination, endurance, strength, mobility, community reintegration, decreased burden of care on others and family education.
Will sign off, please re-consult if needed.
Thank you for allowing me to care for your patient. Please contact me with any questions or concerns.
Comments
-
This note was dictated using a voice recognition system. 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 If you believe there are any discrepancies, please notify our office.

Documented by User: Osbaldo Mcneal MD 05/24/25 23:27
Physical Exam
Physical Exam
Physical Exam:
General Appearance/Observation: Well-developed, well-nourished male in no apparent distress.
Pain/Comfort Assessment: Denies
Mood/Affect: Appropriate
Integumentary/Operative Site:
- s/p L TMA with dressing clean dry and intact
Eyes: Conjunctiva/Lids: normal Pupils: pupils equal round and reactive to light and Accommodation
Ears/Nose/Throat: oral mucosa moist, throat clear. Lips/Teeth/Gums: normal
Neck: No muscle spasm or tenderness
Cardiovascular: Heart: regular rate, regular rhythm, no murmur
Respiratory: Respiratory Effort/Chest Expansion: normal Auscultation: Clear to auscultation bilaterally
Gastrointestinal: abdomen not tender, no distension, normal abdominal bowel sounds
Genitourinary: No Scott
Extremities: Edema: None Cyanosis: None Trophic changes: None
Neurology Exam:
Orientation: Alert, Oriented to self, Time, Place, situation
Memory: Intact for recent medical concerns
Repetition: Intact
Comprehension: Intact
Two step command: Intact
Naming: Intact
Cranial Nerves:
CNII: Pupillary light reflex: Intact
CN VII: Facial movement: Symmetric
CN VIII: Hearing: Normal
CN IX/X: Speech & swallow: Normal, Position of Uvula: Midline
CN XI: Shoulder shrug: Symmetric
CN XII: Tongue protrusion: Midline
Sensory:
Light touch: Intact in bilateral upper and decreased in L lower extremity to knee
Pinprick: deferred
Proprioception: deferred
Temperature: deferred
Reflexes:
Biceps: 0 bilaterally
Brachioradialis: 0 bilaterally
Triceps: 0 bilaterally
Patellar: 0 bilaterally
Achilles: deferred on left
Clonus: None
Francisco: Negative bilaterally
Cerebellar: Dysmetria/Ataxia: None
Musculoskeletal: Motor: (Manual muscle scale 0-5)
Muscle SA EF WE EE FF FA HF KE DF EHL PF
Right 5 5 5 5 5 5 5 - - -
Left 5 5 5 5 4 5 5 - - -
Tone: Normal in all extremities
Range of Motion: Passively within normal limits in all extremities
Assessment / Plan
Assessment
74-year-old male with type 2 diabetes who presents with gangrenous changes to the left hallux with concern for osteomyelitis of the left hallux with overlying cellulitis status post 05/17 left metatarsal amputation resulting in ADL and ambulatory
dysfunction.
Plan
PM&R PT/OT to increase independence with ADLs, improve balance, coordination, endurance, strength, mobility, community reintegration, decreased burden of care on others and family education.
Peripheral polyneuropathy: at high risk of falling with significant neuropathy.
-Takes Cymbalta and gabapentin 300 mg 3 times daily for neuropathic pain
Status post L TMA: Monitor incision, pain control, incision care per orthopedics. Maintain full range of motion. Spoke with podiatry and patient is nonweightbearing likely for many months.
Chronic hypotension: Midodrine 5 mg daily
HLD: statin
DM II: Accu-Cheks, insulin sliding scale, metformin, Farxiga, lantus, lispro.
Anemia: Likely multifactorial. Continue to monitor.
Peripheral artery disease: Eliquis, Plavix, statin
Skin: monitor for pressure sores/rashes/lesions.
Pain: acetaminophen or oxycodone as needed. Taking IV Dilaudid. Needs to be stable on oral medication prior to discharge to rehab.
Bowel: MiraLAX or senna, or bisacodyl as needed.
Bladder: Time void, PVRs, PRN straight cath.
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
Obesity due to excess calories: Weight loss education
GI Prophylaxis: Pantoprazole
DVT Prophylaxis: on eliquis
Safety: Continue to reinforce assistance with all transfers.
Code Status: Full code
Dispo : Acute rehab PT/OT to increase independence with ADLs, improve balance, coordination, endurance, strength, mobility, community reintegration, decreased burden of care on others and family education. He has numerous medical problems that
require management. He will need to be reeducated on management at a wheelchair level at home particularly with transferring from wheelchair to stair glide and stair glide to wheelchair in order to be modified independent at home. Anticipated he
will be nonweightbearing for many months per podiatry.
Functional and Medical Goals: Modified Independent with ADL�s, transfers, wheelchair mobility
Attending Statement: I performed a history and examined the patient today.� I reviewed the care plan with therapy, nursing, and the resident.� I agree with the history and ROS above as modified.� The physical exam and plan documented reflects my
examination and plan.��A total of 60 minutes were spent with the patient preparing for the evaluation, obtaining history, performing examination and evaluation, counseling, data review, case management, care coordination, time recorder, and EMR
documentation.
Summary
-
Discharge disposition: Acute rehab PT/OT to increase independence with ADLs, improve balance, coordination, endurance, strength, mobility, community reintegration, decreased burden of care on others and family education. He has numerous medical
problems that require management. He will need to be reeducated on management at a wheelchair level at home particularly with transferring from wheelchair to stair glide and stair glide to wheelchair in order to be modified independent at home.
Anticipated he will be nonweightbearing for many months per podiatry.
Will sign off, please re-consult if needed.
Thank you for allowing me to care for your patient. Please contact me with any questions or concerns.
[2025-05-24 15:00] VITALS: BP 124/64
[2025-05-24 15:40] VITALS: BP 108/84; PULSE 66; PULSE 68; O2SAT 96; O2SAT 99
[2025-05-24 16:17] LABS: Glucose - Point of Care 91 mg/dl (70-99)
--- NOTE | 2025-05-24 16:37 | W.PN.HOSP.TC ---
Today's Communication/Plan
-
Observe off antibiotics
Wound care.
Physiatry consultation with plan for rehab discharge acute versus subacute.
Assessment / Plan
Assessment / Plan
This is a 74-year-old male with a past medical history of type 2 diabetes mellitus, severe distal small vessel obliterative PAD, right BKA, hypertension who presented to the ED with gangrene of the left great toe. Patient states that he had a
blister to the left great toe for several months, and has been increasing in size swelling and pain since. He was seen by vascular surgery Dr. Church today and was sent to the ER for IV antibiotics and possible admission. Patient denies fever, chills
or any other symptoms.
XR left foot: Some suspected cortical lucency at least along the distal tip of the distal phalanx of left great toe, mildly suspicious for osteomyelitis.
Assessment/plan:
# Left great toe gangrene without systemic illness
# History of severe distal small vessel obliterative PAD
# History of right BKA/ by Dr. Church
Wound culture 05/08/25 polymicrobial.
� S/p left open hallux amputation 05/08/24 with application of negative pressure wound therapy- dressing change 05/10/25.
- Status post first metatarsal head resection packed open on 05/13. Continue wound care
� Continue Zosyn, Vanco was discontinued based on cultures. Infectious disease following.
� Failed Limflow 05/09/25. Vascular surgery has been on board with planning attempt of repeat Limflow. Had conversation with vascular surgery and plan was taken for open TMA.
Status post left open TMA 05/17. Eliquis restarted post OP. Nonweightbearing left lower extremity per podiatry. Vascular following
� Continue Plavix
Restarted Eliquis
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
monitor
# Type 2 diabetes mellitus
� HbA1c 8.4% 05/08/25
Regimen has been adjusted.
Currently on Lantus 56/aspart 14 AC with addition of Farxiga and metformin. BS high, inc insulin
Initiated on metformin and Farxiga
diabetes PLANNING CONSULTANT managing
# Chronic hypotension
� Continue midodrine 5 Mg p.o. daily.
# Hyperlipidemia
� Continue statin.
# Mild hyponatremia
� monitor
#Obesity due to excess calories
DVT prophylaxis: eliquis
CODE STATUS: Full
Anticipated Discharge: > 48 hours
Subjective/Interval History
-
Date of Service: May 24, 2025
Objective Data
-
Vital Signs:
Vital Signs
Temp Pulse Resp BP Pulse Ox
97.6 F 73 16 124/64 99
05/24/25 15:00 05/24/25 15:00 05/24/25 15:00 05/24/25 15:00 05/24/25 15:00
I&O
05/23/25 05/24/25 05/25/25
06:59 06:59 06:59
Intake Total 960 / 960 2049
Output Total 1000 / 1000 1949 / 1949 850 / 850
Balance -40 / -40 100 / 100 -850 / -850
Physical Exam
-
General: Well Developed and No Apparent Distress
HEENT: Normocephalic, Atraumatic and Moist Mucous Membranes
Respiratory: Clear to Auscultation
Cardiac: Regular Rhythm and S1/S2; Negative Murmur, Rub or Gallop
GI: Soft, Nontender, Nondistended and Normal Bowel Sounds; Negative Organomegaly
Rectal: Deferred by Provider
Musculoskeletal: No Clubbing, No Cyanosis and No Edema
Skin: Negative Rash
Neuro: Nonfocal/Grossly Intact
[2025-05-24 21:15] LABS: Glucose - Point of Care 93 mg/dl (70-99)
[2025-05-24] MEDS: LIPITOR 80 MG PO (21:19)
[2025-05-24 23:29] VITALS: BP 125/65
[2025-05-25 06:53] LABS: Hematocrit 28.2 % (39.0-52.0); Hemoglobin 9.5 g/dL (13.0-18.0); Mean Corp Hgb Conc. 33.7 g/dL (33.0-37.0); Mean Corpuscular Volume 89.5 fL (80.0-94.0); Nucleated Red Blood Cells % 0 % (-); Platelet Count 502 10^3/uL (130-400); Red Cell Dist. Width 13.1 % (11.5-14.5)
[2025-05-25 07:12] VITALS: BP 124/65
[2025-05-25 07:18] LABS: Blood Urea Nitrogen 11 mg/dl (9-20); Calcium 8.8 mg/dl (8.4-10.2); Carbon Dioxide 29 mmol/L (22-30); Chloride 100 mmol/L (98-107); Estimated Creatinine Clearance 77 ml/min; Glucose 117 mg/dl (70-99); Potassium 4.8 mmol/L (3.5-5.1); Sodium 136 mmol/L (135-145); eGFR > 60.00
[2025-05-25 08:05] LABS: Glucose - Point of Care 128 mg/dl (70-99)
[2025-05-25] MEDS: NOVOLOG FLEXPEN-LOW RESISTANCE SC ×2 (08:19→16:15)
--- NOTE | 2025-05-25 08:35 | W.PN.HOSP.TC ---
Today's Communication/Plan
-
Discharge planning Acute rehab
Pain control
glycemic control
PT/OT
Assessment / Plan
Assessment / Plan
Physical Exam
General: No acute distress, appears comfortable at this time.
HEENT: Normocephalic, Atraumatic and Moist Mucous Membranes
Respiratory: Clear to Auscultation
Cardiac: Regular Rhythm and S1/S2; Negative Murmur, Rub or Gallop
GI: Soft, Nontender, Nondistended and Normal Bowel Sounds; Negative Organomegaly
Rectal: Deferred by Provider
Musculoskeletal: No Clubbing, No Cyanosis and No Edema
Skin: Negative Rash
Neuro: Nonfocal/Grossly Intact
This is a 74-year-old male with a past medical history of type 2 diabetes mellitus, severe distal small vessel obliterative PAD, right BKA, hypertension who presented to the ED with gangrene of the left great toe. Patient states that he had a
blister to the left great toe for several months, and has been increasing in size swelling and pain since. He was seen by vascular surgery Dr. Church today and was sent to the ER for IV antibiotics and possible admission. Patient denies fever, chills
or any other symptoms.
XR left foot: Some suspected cortical lucency at least along the distal tip of the distal phalanx of left great toe, mildly suspicious for osteomyelitis.
Assessment/plan:
# Left great toe gangrene without systemic illness
# History of severe distal small vessel obliterative PAD
# History of right BKA/ by Dr. Church
Wound culture 05/08/25 polymicrobial.
� S/p left open hallux amputation 05/08/24 with application of negative pressure wound therapy- dressing change 05/10/25.
- Status post first metatarsal head resection packed open on 05/13. Continue wound care
� Vanco was discontinued based on cultures. Infectious disease eval gonzález aguilarsyn completed 17 days, monitor off
� Failed Limflow 05/09/25.
Status post left open TMA 05/17. Eliquis restarted post OP. Nonweightbearing left lower extremity per podiatry. Vascular following
� Continue Plavix
#Mild Hyponatremia -likely due to SIADH 2/2 pain
monitor
# Type 2 diabetes mellitus
� HbA1c 8.4% 05/08/25
Regimen has been adjusted.
Currently on Lantus 56U aspart 14U@0800 and 10U@1130,1730 with addition of Farxiga and metformin.
Initiated on metformin and Farxiga
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
# Chronic hypotension
� Continue midodrine 5 Mg p.o. daily.
# Hyperlipidemia
� Continue statin.
# Mild hyponatremia
� monitor
#Obesity due to excess calories
DVT prophylaxis: eliquis
CODE STATUS: Full
I spent a total of 40 minutes with the patient or on the floor. More than 50% of this time involved counseling and coordination of care.
Anticipated Discharge: 24 - 48 hours
Subjective/Interval History
-
Date of Service: May 25, 2025
No acute distress, resting comfortably in bed. Denies new acute issues at this time.
Objective Data
-
Labs:
Laboratory Results
05/25/25
06:08
WBC 9.1
Hgb 9.5 L
Hct 28.2 L
Plt Count 502 H
Sodium 136
Potassium 4.8
Chloride 100
Carbon Dioxide 29
BUN 11
Creatinine 1.0
Glucose 117 H
Calcium 8.8
Vital Signs:
Vital Signs
Temp Pulse Resp BP Pulse Ox
97.8 F 88 18 125/65 94
05/24/25 23:29 05/24/25 23:29 05/24/25 23:29 05/24/25 23:29 05/24/25 23:29
I&O
05/24/25 05/25/2505/26/25
06:59 06:59 06:59
Intake Total 2049
Output Total 1949
Balance 100 / 100 -290 / -290
[2025-05-25] MEDS: LANTUS 0.56 UNITS SC (08:49)
[2025-05-25] MEDS: ROXICODONE 5 MG PO (08:49)
[2025-05-25] MEDS: PLAVIX 75 MG PO (08:49)
[2025-05-25] MEDS: GLUCOPHAGE 1000 MG PO ×2 (08:49→16:40)
[2025-05-25] MEDS: ELIQUIS 5 MG PO ×2 (08:49→19:57)
[2025-05-25] MEDS: CYMBALTA DELAYED RELEASE 60 MG PO (08:49)
[2025-05-25] MEDS: FARXIGA 10 MG PO (08:49)
[2025-05-25] MEDS: NEURONTIN 300 MG PO ×3 (08:49→19:57)
[2025-05-25] MEDS: NOVOLOG FLEXPEN 14 UNITS SC (08:50)
[2025-05-25 11:02] LABS: Glucose - Point of Care 190 mg/dl (70-99)
[2025-05-25] MEDS: DILAUDID 0.5 MG IV ×2 (12:29→17:05)
[2025-05-25] MEDS: NOVOLOG FLEXPEN 10 UNITS SC ×2 (12:35→16:40)
[2025-05-25] MEDS: NOVOLOG FLEXPEN-LOW RESISTANCE 1 UNITS SC (12:35)
[2025-05-25] MEDS: LANOXIN 125 MCG PO (12:36)
[2025-05-25 15:00] VITALS: BP 134/69
[2025-05-25 16:12] LABS: Glucose - Point of Care 77 mg/dl (70-99)
[2025-05-25] MEDS: LIPITOR 80 MG PO (19:56)
[2025-05-25 21:41] LABS: Glucose - Point of Care 115 mg/dl (70-99)
[2025-05-25 23:13] VITALS: BP 106/46
--- NOTE | 2025-05-26 06:49 | W.PN.HOSP.TC ---
Today's Communication/Plan
-
discharge planning Acute rehab
Assessment / Plan
Assessment / Plan
Physical Exam
General: No acute distress, appears comfortable at this time.
HEENT: Normocephalic, Atraumatic and Moist Mucous Membranes
Respiratory: Clear to Auscultation
Cardiac: Regular Rhythm and S1/S2; Negative Murmur, Rub or Gallop
GI: Soft, Nontender, Nondistended and Normal Bowel Sounds; Negative Organomegaly
Rectal: Deferred by Provider
Musculoskeletal: No Clubbing, No Cyanosis and No Edema
Skin: Negative Rash
Neuro: Nonfocal/Grossly Intact
This is a 74-year-old male with a past medical history of type 2 diabetes mellitus, severe distal small vessel obliterative PAD, right BKA, hypertension who presented to the ED with gangrene of the left great toe. Patient states that he had a
blister to the left great toe for several months, and has been increasing in size swelling and pain since. He was seen by vascular surgery Dr. Church today and was sent to the ER for IV antibiotics and possible admission. Patient denies fever, chills
or any other symptoms.
XR left foot: Some suspected cortical lucency at least along the distal tip of the distal phalanx of left great toe, mildly suspicious for osteomyelitis.
Assessment/plan:
# Left great toe gangrene without systemic illness
# History of severe distal small vessel obliterative PAD
# History of right BKA/ by Dr. Church
Wound culture 05/08/25 polymicrobial.
� S/p left open hallux amputation 05/08/24 with application of negative pressure wound therapy- dressing change 05/10/25.
- Status post first metatarsal head resection packed open on 05/13. Continue wound care
� Vanco was discontinued based on cultures. Infectious disease eval gonzález aguilarsyn completed 17 days, monitor off
� Failed Limflow 05/09/25.
Status post left open TMA 05/17. Eliquis restarted post OP. Nonweightbearing left lower extremity per podiatry. Vascular following
� Continue Plavix
#Mild Hyponatremia -likely due to SIADH 2/2 pain
monitor
# Type 2 diabetes mellitus
� HbA1c 8.4% 05/08/25
Regimen has been adjusted.
Currently on Lantus 56U aspart 14U@0800 and 10U@1130,1730 with addition of Farxiga and metformin.
Initiated on metformin and Farxiga
diabetes [employer] managing
# Chronic hypotension
� Continue midodrine 5 Mg p.o. daily.
# Hyperlipidemia
� Continue statin.
# Mild hyponatremia
� monitor
#Obesity due to excess calories
DVT prophylaxis: eliquis
CODE STATUS: Full
I spent a total of 35 minutes with the patient or on the floor. More than 50% of this time involved counseling and coordination of care.
Anticipated Discharge: 24 - 48 hours
Subjective/Interval History
-
Date of Service: May 26, 2025
no acute distress resting comfortably in bed. Overall reports feeling well. Denies new acute issues.
Objective Data
-
Vital Signs:
Vital Signs
Temp Pulse Resp BP Pulse Ox
98.1 F 67 18 106/46 96
05/25/25 23:13 05/25/25 23:13 05/25/25 23:13 05/25/25 23:13 05/25/25 23:13
I&O
05/24/25 05/25/25 05/26/25
06:59 06:59 06:59
Intake Total 2049 / 1909 960 / 960
Output Total 1949 / 1949 2199 / 2199 2350 / 2350
Balance 100 / 100 -290 / -290 -1390 / -1390
[2025-05-26 07:00] VITALS: BP 97/57
[2025-05-26 07:47] LABS: Glucose - Point of Care 179 mg/dl (70-99)
[2025-05-26] MEDS: LANTUS 0.56 UNITS SC (08:22)
[2025-05-26] MEDS: NOVOLOG FLEXPEN 14 UNITS SC (08:22)
[2025-05-26] MEDS: NOVOLOG FLEXPEN-LOW RESISTANCE 1 UNITS SC (08:23)
[2025-05-26] MEDS: FARXIGA 10 MG PO (08:25)
[2025-05-26] MEDS: CYMBALTA DELAYED RELEASE 60 MG PO (08:25)
[2025-05-26] MEDS: NEURONTIN 300 MG PO ×3 (08:25→21:33)
[2025-05-26] MEDS: GLUCOPHAGE 1000 MG PO ×2 (08:25→16:33)
[2025-05-26] MEDS: PLAVIX 75 MG PO (08:25)
[2025-05-26] MEDS: ELIQUIS 5 MG PO ×2 (08:25→19:45)
[2025-05-26] MEDS: ROXICODONE 5 MG PO ×2 (08:29→21:24)
[2025-05-26] MEDS: DILAUDID 0.5 MG IV ×2 (11:18→17:31)
[2025-05-26 11:36] LABS: Glucose - Point of Care 131 mg/dl (70-99)
[2025-05-26] MEDS: NOVOLOG FLEXPEN-LOW RESISTANCE SC ×2 (11:54→15:42)
[2025-05-26] MEDS: NOVOLOG FLEXPEN 10 UNITS SC ×2 (11:56→16:36)
[2025-05-26] MEDS: LANOXIN 125 MCG PO (11:57)
[2025-05-26 15:18] LABS: Glucose - Point of Care 115 mg/dl (70-99)
[2025-05-26 15:26] VITALS: BP 136/57
[2025-05-26 21:02] LABS: Glucose - Point of Care 63 mg/dl (70-99)
[2025-05-26 21:20] LABS: Glucose - Point of Care 66 mg/dl (70-99)
[2025-05-26] MEDS: LIPITOR 80 MG PO (21:33)
[2025-05-26 21:36] LABS: Glucose - Point of Care 64 mg/dl (70-99)
[2025-05-26 21:54] LABS: Glucose - Point of Care 68 mg/dl (70-99)
[2025-05-26] MEDS: DEXTROSE 50% SYRINGE 12.5 GRAMS IV (22:02)
[2025-05-26 22:24] LABS: Glucose - Point of Care 143 mg/dl (70-99)
[2025-05-26 23:03] VITALS: BP 124/50
[2025-05-27 03:10] LABS: Glucose - Point of Care 142 mg/dl (70-99)
[2025-05-27 07:55] LABS: Glucose - Point of Care 141 mg/dl (70-99)
[2025-05-27 08:28] VITALS: BP 122/77
[2025-05-27] MEDS: NOVOLOG FLEXPEN-LOW RESISTANCE SC ×2 (08:29→12:02)
[2025-05-27] MEDS: CYMBALTA DELAYED RELEASE 60 MG PO (08:30)
[2025-05-27] MEDS: ELIQUIS 5 MG PO ×2 (08:30→19:23)
[2025-05-27] MEDS: GLUCOPHAGE 1000 MG PO ×2 (08:30→17:28)
[2025-05-27] MEDS: FARXIGA 10 MG PO (08:30)
[2025-05-27] MEDS: PLAVIX 75 MG PO (08:30)
[2025-05-27] MEDS: NEURONTIN 300 MG PO ×3 (08:30→20:44)
[2025-05-27] MEDS: NOVOLOG FLEXPEN 14 UNITS SC (08:31)
[2025-05-27] MEDS: LANTUS 0.56 UNITS SC (08:33)
[2025-05-27] MEDS: TYLENOL 650 MG PO (08:34)
--- NOTE | 2025-05-27 08:34 | PN.DE.MGMTRT ---
Insulin Management
- -
05/27/2025: Diabetes Management Follow up
Patient admitted 05/07 with blisters and pain L great toe. Sent from Dr. Church's office for antibiotics and vascular procedure. PMH RBKA, HTN, severe distal small vessel obliterated PAD, diabetes, [place] 1 month ago. Prior to admission chart notes
patient was taking detemir 68 units daily with 14 units NovoLog AC , Jardiance 25 mg daily and metformin 1000 BID. States he sees [facility] for diabetes care. He used to take Levemir 68 units daily but was recently switched, he thinks to Lantus. A1C is
8.4%, cr 1.1, eGFR > 60.
Patient is awake alert and oriented, sitting up in bed, offers no complaints, able to discuss diabetes care.
POD #14 s/p 1st metatarsal head resection. Noted for an episode of hypoglycemia @[facility] yesterday. 84 to 206.
Fasting glucose this AM 109 POC. Will reduce NovoLog to 8 units at lunch and dinner time.
Pt already received his AM Lantus dose of 56 units, will reduce dose to 54 units in AM.
Cont low corrective insulin with Farxiga 10 mg daily (takes Jardiance 25 mg daily) and metformin 1000 mg BID.
Discussed with nurse. Will cont to follow
Diabetes History
- -
Type of Diabetes: 2 requiring insulin
Pre-Admission Diabetes Regimen
Lab Results
Hemoglobin A1c 8.4 % (4.0-5.6) H 05/08/25 06:07
Insulin Pump Settings
IP Diabetes Regimen
05/26/25 05/26/25 05/26/25
11:35 15:16 21:00
POC Glucose 131 H 115 H 63 L
05/26/25 05/26/25 05/26/25
21:18 21:33 21:52
POC Glucose 66 L 64 L 68 L
05/26/25 05/27/25 05/27/25
22:22 03:08 07:43
POC Glucose 143 H 142 H 141 H
Meal type: Lunch
Meal type: Breakfast
Amount consumed: 100%
Amount consumed: 100%
Patient Education
[2025-05-27 08:54] LABS: Hematocrit 28.3 % (39.0-52.0); Hemoglobin 9.1 g/dL (13.0-18.0); Mean Corp Hgb Conc. 32.2 g/dL (33.0-37.0); Mean Corpuscular Volume 89.6 fL (80.0-94.0); Platelet Count 479 10^3/uL (130-400); Red Cell Dist. Width 13.5 % (11.5-14.5)
[2025-05-27 09:34] LABS: Blood Urea Nitrogen 12 mg/dl (9-20); Calcium 8.6 mg/dl (8.4-10.2); Carbon Dioxide 26 mmol/L (22-30); Chloride 101 mmol/L (98-107); Estimated Creatinine Clearance 96 ml/min; Glucose 136 mg/dl (70-99); Magnesium 1.7 mg/dl (1.6-2.3); Potassium 4.5 mmol/L (3.5-5.1); Sodium 136 mmol/L (135-145); eGFR > 60.00
[2025-05-27 11:47] LABS: Glucose - Point of Care 129 mg/dl (70-99)
[2025-05-27] MEDS: NOVOLOG FLEXPEN 8 UNITS SC ×2 (12:04→17:29)
[2025-05-27] MEDS: LANOXIN 125 MCG PO (12:21)
--- NOTE | 2025-05-27 14:31 | CM ---
Spoke with Era Hinojosa No beds available at [facility]
Pt wants [facility] at [facility] only Other locations too far.
PM&R consult done.
Informed patient no beds at [facility].
Spoke with L[facility] and patient They requested [facility]. Referral placed.
Continue with wound care and PT /OT.
PLAN Discharge to [facility] or SN[facility] on SNF beds
[2025-05-27 15:09] VITALS: BP 122/61; PULSE 74
[2025-05-27 15:10] VITALS: BP 122/61; PULSE 74; O2SAT 99
--- NOTE | 2025-05-27 15:18 | W.PN.HOSP.TC ---
Today's Communication/Plan
-
Off antibiotics
Placement
Assessment / Plan
Assessment / Plan
This is a 74-year-old male with a past medical history of type 2 diabetes mellitus, severe distal small vessel obliterative PAD, right BKA, hypertension who presented to the ED with gangrene of the left great toe. Patient states that he had a
blister to the left great toe for several months, and has been increasing in size swelling and pain since. He was seen by vascular surgery Dr. Church today and was sent to the ER for IV antibiotics and possible admission. Patient denies fever, chills
or any other symptoms.
XR left foot: Some suspected cortical lucency at least along the distal tip of the distal phalanx of left great toe, mildly suspicious for osteomyelitis.
Assessment/plan:
# Left great toe gangrene without systemic illness
# History of severe distal small vessel obliterative PAD
# History of right BKA/ by Dr. Church
Wound culture 05/08/25 polymicrobial.
� S/p left open hallux amputation 05/08/24 with application of negative pressure wound therapy- dressing change 05/10/25.
- Status post first metatarsal head resection packed open on 05/13. Continue wound care
� Vanco was discontinued based on cultures. Infectious disease yumiko calle completed 17 days, monitor off
� Failed Limflow 05/09/25.
Status post left open TMA 05/17. Eliquis restarted post OP. Nonweightbearing left lower extremity per podiatry. Vascular following
� Continue Plavix
#Mild Hyponatremia -likely due to SIADH 2/2 pain
monitor
# Type 2 diabetes mellitus
� HbA1c 8.4% 05/08/25
Regimen has been adjusted.
Currently on Lantus 56U aspart 14U@0800 and 10U@1130,1730 with addition of Farxiga and metformin.
Initiated on metformin and Farxiga
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
# Chronic hypotension
� Continue midodrine 5 Mg p.o. daily.
# Hyperlipidemia
� Continue statin.
# Mild hyponatremia
� monitor
#Obesity due to excess calories
DVT prophylaxis: eliquis
CODE STATUS: Full
I spent a total of 35 minutes with the patient or on the floor. More than 50% of this time involved counseling and coordination of care.
Anticipated Discharge: Within 24 hours
Subjective/Interval History
-
Date of Service: May 27, 2025
Objective Data
-
Labs:
Laboratory Results
05/27/25
07:21
WBC 9.9
Hgb 9.1 L
Hct 28.3 L
Plt Count 479 H
Sodium 136
Potassium 4.5
Chloride 101
Carbon Dioxide 26
BUN 12
Creatinine 0.8
Glucose 136 H
Calcium 8.6
Vital Signs:
Vital Signs
Temp Pulse Resp BP Pulse Ox
98.4 F 68 18 122/77 97
05/27/25 08:28 05/27/25 12:21 05/27/25 08:28 05/27/25 08:29 05/27/25 08:28
I&O
05/26/25 05/27/25 05/28/25
06:59 06:59 06:59
Intake Total 960 / 960 1320 / 1320
Output Total 2350 / 2350 2950 / 2950
Balance -1390 / -1390 -1630 / -1630
Physical Exam
-
General: Well Developed and No Apparent Distress
HEENT: Normocephalic, Atraumatic and Moist Mucous Membranes
Respiratory: Clear to Auscultation
Cardiac: Regular Rhythm and S1/S2; Negative Murmur, Rub or Gallop
GI: Soft, Nontender, Nondistended and Normal Bowel Sounds; Negative Organomegaly
Rectal: Deferred by Provider
Musculoskeletal: No Clubbing, No Cyanosis and No Edema
Skin: Negative Rash
Neuro: Nonfocal/Grossly Intact
[2025-05-27 15:55] VITALS: BP 122/61
[2025-05-27 16:24] LABS: Glucose - Point of Care 172 mg/dl (70-99)
[2025-05-27] MEDS: NOVOLOG FLEXPEN-LOW RESISTANCE 1 UNITS SC (16:24)
[2025-05-27] MEDS: ROXICODONE 5 MG PO (19:24)
[2025-05-27] MEDS: LIPITOR 80 MG PO (20:44)
[2025-05-27 21:15] LABS: Glucose - Point of Care 138 mg/dl (70-99)
[2025-05-27 23:15] VITALS: BP 135/66
[2025-05-28 07:00] VITALS: BP 131/74
[2025-05-28 07:00] LABS: Glucose - Point of Care 112 mg/dl (70-99)
--- NOTE | 2025-05-28 07:12 | PN.DE.MGMTRT ---
Insulin Management
- -
05/28/2025: Diabetes Management Follow up
Patient admitted 05/07 with blisters and pain L great toe. Sent from Dr. Church's office for antibiotics and vascular procedure. PMH RBKA, HTN, severe distal small vessel obliterated PAD, diabetes, [place] 1 month ago. Prior to admission chart notes
patient was taking detemir 68 units daily with 14 units NovoLog AC , Jardiance 25 mg daily and metformin 1000 BID. States he sees [facility] for diabetes care. He used to take Levemir 68 units daily but was recently switched, he thinks to Lantus. A1C is
8.4%, cr 1.1, eGFR > 60.
Patient is awake alert and oriented, sitting up in bed, offers no complaints, able to discuss diabetes care.
POD #15 s/p 1st metatarsal head resection.
Glucose range 117 to 172 yesterday receiving lantus 56 units in AM with novolog 14 units with breakfast and 8 units with lunch and dinner.
Fasting glucose this AM 112 POC.
Will continue current regimen lantus 56 units in AM with novolog 14 units with breakfast and 8 units with lunch and dinner with low corrective and farxiga 10 mg daily and metformin 1000 mg BID.
Discussed with nurse. Will cont to follow
Diabetes History
- -
Type of Diabetes: 2 requiring insulin
Pre-Admission Diabetes Regimen
05/27/25
07:21
Creatinine 0.8
Lab Results
Hemoglobin A1c 8.4 % (4.0-5.6) H 05/08/25 06:07
Insulin Pump Settings
IP Diabetes Regimen
05/27/25 05/27/25 05/27/25
07:21 07:43 11:46
Glucose 136 H
POC Glucose 141 H 129 H
05/27/25 05/27/25 05/28/25
16:23 21:13 06:58
Glucose
POC Glucose 172 H 138 H 112 H
Meal type: Breakfast
Amount consumed: 100%
Patient Education
[2025-05-28] MEDS: CYMBALTA DELAYED RELEASE 60 MG PO (07:56)
[2025-05-28] MEDS: NOVOLOG FLEXPEN-LOW RESISTANCE SC ×3 (07:56→15:04)
[2025-05-28] MEDS: FARXIGA 10 MG PO (07:57)
[2025-05-28] MEDS: ELIQUIS 5 MG PO (07:57)
[2025-05-28] MEDS: GLUCOPHAGE 1000 MG PO (07:57)
[2025-05-28] MEDS: PLAVIX 75 MG PO (07:57)
[2025-05-28] MEDS: NEURONTIN 300 MG PO (07:57)
[2025-05-28] MEDS: NOVOLOG FLEXPEN 14 UNITS SC (07:58)
[2025-05-28] MEDS: LANTUS 0.56 UNITS SC (08:04)
[2025-05-28 08:13] LABS: Hematocrit 31.3 % (39.0-52.0); Hemoglobin 10.1 g/dL (13.0-18.0); Mean Corp Hgb Conc. 32.3 g/dL (33.0-37.0); Mean Corpuscular Volume 90.5 fL (80.0-94.0); Platelet Count 524 10^3/uL (130-400); Red Cell Dist. Width 13.6 % (11.5-14.5)
[2025-05-28] MEDS: TYLENOL 650 MG PO (09:00)
[2025-05-28 09:55] LABS: Blood Urea Nitrogen 11 mg/dl (9-20); Calcium 8.9 mg/dl (8.4-10.2); Carbon Dioxide 28 mmol/L (22-30); Chloride 102 mmol/L (98-107); Estimated Creatinine Clearance 96 ml/min; Glucose 94 mg/dl (70-99); Magnesium 1.7 mg/dl (1.6-2.3); Potassium 4.7 mmol/L (3.5-5.1); Sodium 138 mmol/L (135-145); eGFR > 60.00
[2025-05-28 11:29] LABS: Glucose - Point of Care 123 mg/dl (70-99)
--- NOTE | 2025-05-28 11:59 | W.DS.TRANS ---
DC Summary - [employer]
-
Discharge Instructions:
Discharge Diagnosis/Procedures Left great toe gangrene without systemic illness
History of severe distal small vessel
obliterative PAD
History of right BKA/
IDDM
Chronic hypotension
Dyslipidemia
Diet Diabetic, Carb Controlled
Instructions:
Stand-Alone Forms:
Changes to Home Medications: No
Discharge Medications:
DC Medications w/original date entered in [employer]ph[employer]guides
atorvastatin 80 mg tablet (Lipitor) 80 mg PO HS High cholesterol 10/15/24
gabapentin 300 mg capsule 300 mg PO TID 10/15/24
clopidogrel 75 mg tablet 75 mg PO DAILY 10/17/24
apixaban 5 mg tablet (Eliquis) 5 mg PO BID 05/07/25
digoxin 125 mcg (0.125 mg) tablet 125 mcg PO DAILY 05/07/25
duloxetine 60 mg capsule,delayed release 60 mg PO DAILY 05/07/25
metformin 500 mg tablet 1,000 mg PO BID@0800,1700 05/07/25
midodrine 5 mg tablet 5 mg PO DAILY 05/07/25
Insulin Glargine Lantus [Lantus] 56 units As Directed mls/hr SC DAILY 05/28/25
acetaminophen 325 mg tablet 650 mg (2 x 325 mg) PO Q4HPRN PRN mild pain/YAN/temp > 100.4F #30 tabs 05/28/25
dapagliflozin propanediol 10 mg tablet 10 mg PO DAILY #30 tabs 05/28/25
insulin aspart U-100 100 unit/mL (3 mL) subcutaneous pen 8 unit (0.08 mL) SC DAILY@1130,1730 #15 mL 05/28/25
insulin aspart U-100 100 unit/mL (3 mL) subcutaneous pen 14 unit (0.14 mL) SC DAILY@0800 #15 mL 05/28/25
metformin 1,000 mg tablet 1,000 mg PO BID@0800,1700 #60 tabs 05/28/25
oxycodone 5 mg tablet 5 mg PO Q4HPRN PRN severe pain #20 tabs 05/28/25
polyethylene glycol 3350 17 gram oral powder packet 17 g PO DAILYPRN PRN constipation #30 ea 05/28/25
sennosides 8.6 mg-docusate sodium 50 mg tablet (Senna Plus) 1 tab PO BIDPRN PRN constipation #30 tabs 05/28/25
Home Medication Changes
Pending Results: No
[2025-05-28] MEDS: NOVOLOG FLEXPEN 8 UNITS SC (12:17)
[2025-05-28] MEDS: LANOXIN 125 MCG PO (12:20)
--- NOTE | 2025-05-28 12:44 | CM ---
MD entered order for discharge
Spoke with Elizabeth at [facility] she said bed available at [facility] today.
PT OT indicated acute rehab
Ashish
report [phone]
fax [phone]
PLAN Discharge to [facility]
[2025-05-28] MEDS: ROXICODONE 5 MG PO (14:59)
[2025-05-28 15:00] VITALS: BP 134/73
[2025-05-28 16:05] LABS: Glucose - Point of Care 107 mg/dl (70-99)
--- NOTE | 2025-05-28 17:05 | PTCARENOTE ---
Report called to Ashish commercial photographer an patient sent to Rehab.
== END 2025-05-28 17:01 | DRG 240 ==
LOC: 4 EAST ACU 18:43
PROVIDERS: Internal Medicine; Nurse Practitioner; Student in an Organized Health Care Education/Training Program; Surgery Vascular Surgery; ADMITTING PHYSICIAN Internal Medicine; ATTENDING PHYSICIAN Internal Medicine; CONSULT PHYSICIAN Physical Medicine & Rehabilitation; EMERGENCY PHYSICIAN Emergency Medicine; FAMILY PHYSICIAN Family Medicine; OTHER PHYSICIAN Internal Medicine Infectious Disease; OTHER PHYSICIAN Student in an Organized Health Care Education/Training Program
PROC: 0Y6Q0Z0 Detachment at Left 1st Toe, Complete, Open Approach (ICD-10-PCS; 2025-05-08)
PROC: B51C1ZZ Fluoroscopy of Left Lower Extremity Veins using Low Osmolar Contrast (ICD-10-PCS; 2025-05-09)
PROC: 0QBP0ZZ Excision of Left Metatarsal, Open Approach (ICD-10-PCS; 2025-05-13)
PROC: 0Y6N0ZB Detachment at Left Foot, Partial 2nd Ray, Open Approach (ICD-10-PCS; 2025-05-17)
PROC: 0Y6N0ZF Detachment at Left Foot, Partial 5th Ray, Open Approach (ICD-10-PCS; 2025-05-17)
PROC: 0Y6N0ZD Detachment at Left Foot, Partial 4th Ray, Open Approach (ICD-10-PCS; 2025-05-17)
PROC: 0Y6N0ZC Detachment at Left Foot, Partial 3rd Ray, Open Approach (ICD-10-PCS; 2025-05-17)
PROC: 0Y6N0Z9 Detachment at Left Foot, Partial 1st Ray, Open Approach (ICD-10-PCS; 2025-05-17)
DX: E11.52 Type 2 diabetes mellitus with diabetic peripheral angiopathy with gangrene (principal); E22.2 Syndrome of inappropriate secretion of antidiuretic hormone; M86.172 Other acute osteomyelitis, left ankle and foot; L03.116 Cellulitis of left lower limb; I70.262 Atherosclerosis of native arteries of extremities with gangrene, left leg; E11.69 Type 2 diabetes mellitus with other specified complication; I10 Essential (primary) hypertension; E78.00 Pure hypercholesterolemia, unspecified; E11.40 Type 2 diabetes mellitus with diabetic neuropathy, unspecified; D64.9 Anemia, unspecified; E78.5 Hyperlipidemia, unspecified; E66.09 Other obesity due to excess calories; I95.89 Other hypotension; R50.82 Postprocedural fever; Z68.33 Body mass index [BMI] 33.0-33.9, adult; Z89.511 Acquired absence of right leg below knee; I25.2 Old myocardial infarction; Z79.01 Long term (current) use of anticoagulants; Z79.02 Long term (current) use of antithrombotics/antiplatelets; Z79.82 Long term (current) use of aspirin; Z79.84 Long term (current) use of oral hypoglycemic drugs; Z79.4 Long term (current) use of insulin; Z87.891 Personal history of nicotine dependence
CPT/HCPCS: 0620T; 36005; 73630; 75820; 80048; 80053; 81050; 82533; 82947; 82962; 83036; 83605; 83735; 83930; 83935; 84100; 84300; 84443; 85025; 85027; 87040; 87070; 87075; 87076; 87077; 87186; 87205; 88304; 88305; 88307; 88311; 93005; 93922; 93926; 93971; 96365; 96367; 96375; 97163; 97164; 97167; 97530; 97535; 99284; C1769; Q9967

== ENCOUNTER 2025-06-01 05:26 | Inpatient (IN) | payer MEDICARE, SELFPAY ==
[2025-06-01] VITALS (14 sets, daily range): BP systolic 93–149; BP diastolic 49–66; BMI 31.3; BMI 30.3
[2025-06-01 00:46] LABS: Glucose - Point of Care 197 mg/dl (70-99)
[2025-06-01 01:07] LABS: Hematocrit 25.9 % (39.0-52.0); Hemoglobin 8.7 g/dL (13.0-18.0); Mean Corp Hgb Conc. 33.6 g/dL (33.0-37.0); Mean Corpuscular Volume 86.9 fL (80.0-94.0); Nucleated Red Blood Cells % 0 % (-); Platelet Count 320 10^3/uL (130-400); Red Cell Dist. Width 13.9 % (11.5-14.5)
[2025-06-01 01:43] LABS: COVID-19 Antigen Negative (Negative)
[2025-06-01 02:11] LABS: ALT (SGPT) 18 U/L (0-50); AST (SGOT) 27 U/L (17-59); Albumin 3.3 g/dl (3.5-5.0); Alkaline Phosphatase 81 U/L (38-126); Blood Urea Nitrogen 21 mg/dl (9-20); Calcium 8.3 mg/dl (8.4-10.2); Carbon Dioxide 26 mmol/L (22-30); Chloride 93 mmol/L (98-107); Estimated Creatinine Clearance 63 ml/min; Glucose 185 mg/dl (70-99); Potassium 4.2 mmol/L (3.5-5.1); Sodium 127 mmol/L (135-145); Total Protein 6.6 g/dl (6.3-8.2); eGFR > 60.00
--- NOTE | 2025-06-01 02:46 | ED.GENMED ---
History of Present Illness
General
Chief Complaint: Fever
Source: patient, records and previous hospital records
Exam Limitations: none
Time Seen by Provider: 06/01/25 01:27
History of Present Illness
History of Present Illness:
74-year-old male diabetic PVD recently admitted with gangrene of the left foot underwent transmet resection, discharged to [facility] for rehab apparently has been have some redness and pain of his remaining foot, tonight developed fever nausea vomiting,
referred to the ER here he is febrile low pulse ox, has redness about his left heel, does not appear to currently be on antibiotics
Past History
Past History
ED Past Medical History: IDDM
ED Past Surgical History: Orthopedic
Social History
Tobacco: Former smoker
Alcohol: None
Drug: None
Living: skilled nursing
Employment: Not employed
Review of Systems
Review of Systems
All Other Systems: Not applicable
Constitutional: Reports fever
Respiratory: Denies trouble breathing
ABD/GI: Reports nausea
Musculoskeletal: Reports joint pain
Neurological: Reports weakness
Phy Exam
Physical Exam
Physical Exam:
Physical Exam
General: Ill-appearing male febrile hypoxic
Neck: Dry lips
Heart: Tachycardic
Lungs: no acute respiratory distress.
Abdomen: Nontender
Neuro: alert and oriented. no focal neurological deficits
Skin: no rash
Psychiatric: cooperative
Extremities: Left foot surgical stump with mild erythema heel calcaneus the redness and warmth
Sepsis
Sepsis Screening
Sepsis Assessment: Sepsis
Sepsis Screen
Sepsis Screen: Sepsis
Date: 06/01/25
Time: 02:52
Course
Orders/Labs/Results
Orders:
Orders
06/01/25 00:55
Complete Blood Count/With Diff Urgent
Comprehensive Metabolic Panel Urgent
06/01/25 00:57
Lactic Acid Urgent
06/01/25 01:20
COVID-19 Antigen Urgent
Source: Nasal Swab
Influenza A+B Rapid Molecular Urgent
HANS Source: Nasal Swab
Specimen Description:
06/01/25 01:23
Electrocardiogram (*1) Urgent
Reason for Study: Other
Other Reason for Exam: Possible Sepsis
EKG- Treatment ONCE
06/01/25 01:27
Blood Culture Q20M
HANS Source: Blood/Venous
Specimen Description:
Comment: Urgent from separate sites. If patient screens positive for possible sepsis
Blood Culture Q20M
HANS Source: Blood/Venous
Specimen Description:
Comment: Urgent from separate sites. If patient screens positive for possible sepsis
06/01/25 01:56
CR Chest - 2 Views Urgent
Comment:
Reason For Exam: fever
06/01/25 01:57
Foot, Left 3 View [CR Foot - Left Min 3 Views] Urgent
Comment:
Reason For Exam: fever
06/01/25 02:46
Cefepime HCl [Maxipime] 2,000 mg IV NOW STA
Abnormal Lab Results
06/01/25 06/01/25
00:45 00:55
WBC 12.4 H 10^3/uL
(4.8-10.8)
RBC 2.98 L 10^6/uL
(4.70-6.10)
Hgb 8.7 L g/dL
(13.0-18.0)
Hct 25.9 L %
(39.0-52.0)
Abs Immat Gran (auto) 0.1 H 10^3/uL
(0-0.05)
Absolute Neuts (auto) 9.9 H 10^3/uL
(1.4-6.5)
Absolute Monos (auto) 1.1 H 10^3/uL
(0.1-0.6)
Neutrophils % 79.2 H %
(42.2-75.2)
Lymphocytes % 10.9 L %
(20.5-51.1)
Sodium 127 L mmol/L
(135-145)
Chloride 93 L mmol/L
(98-107)
BUN 21 H mg/dl
(9-20)
Glucose 185 H mg/dl
(70-99)
Calcium 8.3 L mg/dl
(8.4-10.2)
Albumin 3.3 L g/dl
(3.5-5.0)
POC Glucose 197 H mg/dl
(70-99)
06/01/25 00:55
06/01/25 00:55
Vital Signs
Initial and Last Documented VS:
Initial Vital Signs
BP
127/66
06/01/25 00:35
Last Documented Vital Signs
Temp Pulse Resp BP Pulse Ox
102.8 F H 105 25 132/60 94
06/01/25 00:36 06/01/25 02:00 06/01/25 02:00 06/01/25 02:00 06/01/25 02:48
*Radiology
Radiology exam reviewed: preliminary read by ED provider
*Pulse Oximetry
SaO2: 94
Nasal Cannula flow liters per minute: 2
Oxygen Mode of Delivery: Room air
Patient hypoxic: yes
*Critical Care Note
Total Time (30-74mins, 75-104mins- exclusive of procedures): 32
Update Note
Update Note:
Update suspect cellulitis possible surgical site infection, will check chest x-ray due to hypoxia, foot x-ray, blood cultures admission
ED Attending Note
-
Portions of this chart may have been created with voice recognition software.� Occasional wrong word or��sound alike� substitutions may have occurred due to the inherent limitations of voice recognition software.
Discharge Plan
Departure
Patient Disposition: Admit
Date of Disposition: 06/01/25
Time of Disposition: 02:49
Admit to: Med/Surg
Presentation/result/management discussed w/ accepting MD/DO: Hospitalist
Patient with high blood pressure during this ER visit?: No
Condition: Fair
Discharge Problem:
Sepsis, Peripheral arterial disease, Type 2 diabetes mellitus with other specified complication, Diabetes
Prescriptions:
No Action
atorvastatin [Lipitor] 80 mg tablet
80 mg PO HS
gabapentin 300 mg capsule
300 mg PO TID
clopidogrel 75 mg Tablet
75 mg PO DAILY
midodrine 5 mg tablet
5 mg PO DAILY
digoxin 125 mcg (0.125 mg) tablet
125 mcg PO DAILY
duloxetine 60 mg capsule,delayed release(DR/EC)
60 mg PO DAILY
Eliquis 5 mg Tablet
5 mg PO BID
polyethylene glycol 3350 17 gram Powder In Packet
17 g PO DAILYPRN PRN (Reason: constipation) Qty: 30 0RF
metformin 1,000 mg Tablet
1,000 mg PO BID@0800,1700 Qty: 60 0RF
insulin aspart U-100 100 unit/mL (3 mL) Insulin Pen
14 unit SC DAILY@0800 Qty: 15 0RF
dapagliflozin propanediol 10 mg Tablet
10 mg PO DAILY Qty: 30 0RF
Insulin Glargine Lantus [Lantus] 56 UNITS
Subcutaneous Insulin Syringe [Syringe-Insulin] 0 UNIT
As Directed mls/hr SC DAILY
Ordered By: Leif Ortega MD
Last Taken: Unknown
insulin aspart U-100 100 unit/mL (3 mL) Insulin Pen
8 unit SC DAILY@1130,1730 Qty: 15 0RF
acetaminophen 325 mg Tablet
650 mg PO Q4HPRN PRN (Reason: mild pain/YAN/temp > 100.4F) Qty: 30 0RF
sennosides-docusate sodium [Senna Plus] 8.6-50 mg Tablet
1 tab PO BIDPRN PRN (Reason: constipation) Qty: 30 0RF
oxycodone 5 mg Tablet
5 mg PO Q4HPRN PRN (Reason: severe pain) Qty: 20 0RF
Interventions
Interventions:
*Risk Screen - Suicide Last Done: 06/01/25 00:36
*General Assessment Last Done: 06/01/25 00:36
*Neglect/Abuse Screening Last Done: 06/01/25 00:36
ED- Neurological Assessment Last Done: 06/01/25 00:47
ED-Skin Assessment Last Done: 06/01/25 00:47
Discharge Date and Time
Print Language: CROATIAN
[2025-06-01] MEDS: MAXIPIME 2000 MG IV (02:56)
--- NOTE | 2025-06-01 03:02 | HPS.HSE ---
Addendum entered and electronically signed by Josh Garcias MD 06/05/25 18:50:
Correction to first line of H7P. Patient is 74 years old.
Original Note:
Family Physician
-
Family Physician:
Chief Complaint
-
Fever
History of Present Illness
Patient is a 24-year-old male with multiple comorbidities most notable for a recent left TMA on 05/17 for PAD with obliterative vascular insufficiency she was transferred from rehab to the ED today for a fever 200.4 at rehab and desaturation to 88%
on room air.
Briefly, patient has a history of [place], hypertension, development of atrial fibrillation and initiation of Eliquis, patient on digoxin electively atrial fibrillation but unclear, history of PAD with a prior right BKA and recent development of severe
distal small vessel open received PAD status post initially great toe amputation and more recently admission for vascular insufficiency and gangrene of the left great toe. There was attempt at salvage with oral limb flow procedure that was
unsuccessful.. He was ultimately taken to the OR for left open TMA. He had clear margins and IV antibiotics were discontinued on 05/24. He had a polymicrobial wound cultures and negative blood cultures. He was discharged to rehab with plan to
attempt repeat limb fluid therapy. If revascularization fails he is a candidate for amputation. He has been at rehab since tonight and then developed a fever today.
Patient reports intermittent sharp pain in the left lower limb which he states has not changed recently. He denies any swelling. He denies any new numbness or tingling. He denies any cough or shortness of breath. He denies abdominal pain nausea
or vomiting. He denies having any diarrhea. He denies any new rash.
He was transferred to the emergency department for the fever in the ED he had a Tmax of 102.8, blood pressure was 130/60 with a pulse of 105 and was satting 94% on 2 L.
His chest x-ray shows no acute infiltrates on my examination. COVID test was negative. Flu test was negative.
White count was 12.4, is hemoglobin was 8.7 similar to prior with a normal platelet count. Sodium is down to 127 again down from a baseline in the low 130s. Address of his electrolytes were unremarkable. BUN and creatinine were stable. Lactic
acid was normal at 1.2. Glucose was normal at 180. ECG shows sinus tachycardia at 106 with known Q waves in lead III and aVF which is unchanged from prior.
Medical History
Past Medical History
Past Medical History: Reports HTN, Hypercholesterolemia and NIDDM
Additional Past Medical History:
PAD
Past Surgical History: Reports None
Social History
Tobacco: Non-smoker
Alcohol: None
Drug: None
Personal:
Living: With Family
Family History
Family History: Not pertinent
Allergies / Home Medications
Allergies reflects when Allergies were last updated in [facility]turn.
Home Medications with original date entered in [facility]turn
Allergy/Medication List:
Allergies
Allergy/AdvReac Type Severity Reaction Status Date / Time
No Known Allergies Allergy Verified 06/01/25 00:35
Home Medications
atorvastatin 80 mg tablet (Lipitor) 80 mg PO HS High cholesterol 10/15/24
gabapentin 300 mg capsule 300 mg PO TID 10/15/24
clopidogrel 75 mg tablet 75 mg PO DAILY 10/17/24
apixaban 5 mg tablet (Eliquis) 5 mg PO BID 05/07/25
digoxin 125 mcg (0.125 mg) tablet 125 mcg PO DAILY 05/07/25
duloxetine 60 mg capsule,delayed release 60 mg PO DAILY 05/07/25
midodrine 5 mg tablet 5 mg PO DAILY 05/07/25
Insulin Glargine Lantus [Lantus] 56 units As Directed mls/hr SC DAILY 05/28/25
acetaminophen 325 mg tablet 650 mg (2 x 325 mg) PO Q4HPRN PRN mild pain/YAN/temp > 100.4F #30 tabs 05/28/25
dapagliflozin propanediol 10 mg tablet 10 mg PO DAILY #30 tabs 05/28/25
insulin aspart U-100 100 unit/mL (3 mL) subcutaneous pen 8 unit (0.08 mL) SC DAILY@1130,1730 #15 mL 05/28/25
insulin aspart U-100 100 unit/mL (3 mL) subcutaneous pen 14 unit (0.14 mL) SC DAILY@0800 #15 mL 05/28/25
metformin 1,000 mg tablet 1,000 mg PO BID@0800,1700 #60 tabs 05/28/25
oxycodone 5 mg tablet 5 mg PO Q4HPRN PRN severe pain #20 tabs 05/28/25
polyethylene glycol 3350 17 gram oral powder packet 17 g PO DAILYPRN PRN constipation #30 ea 05/28/25
sennosides 8.6 mg-docusate sodium 50 mg tablet (Senna Plus) 1 tab PO BIDPRN PRN constipation #30 tabs 05/28/25
Review of Systems
-
Constitutional: Reports No Symptoms
EENT: Reports No Symptoms
Respiratory: Reports No Symptoms
Cardiac: Reports No Symptoms
Abdomen/GI: Reports No Symptoms
: Reports No Symptoms
Musculoskeletal: Reports Other (Right BKA, left TMA with sutures in place, no drainage.-Area of open wound without significant erythema. There is a relatively new area of erythema just at the level of the left ankle which is mildly tender to
palpation and shows some induration. There does not appear to be any significant joint e)
Skin: Reports No Symptoms
Neurological: Reports No Symptoms
Endocrine: Reports No Symptoms
Hematologic/Lymphatic: Reports No Symptoms
Psych: Reports No Symptoms
Physical Exam
Vital Signs
Vital Signs
Temp Pulse Resp BP Pulse Ox
102.8 F H 102 25 132/60 94
06/01/25 00:36 06/01/25 02:45 06/01/25 02:45 06/01/25 02:00 06/01/25 02:48
Physical Exam
General: Well Developed, Well Nourished, No Apparent Distress and Comfortable
HEENT: NormoCephalic, Anicteric and Moist mucous membranes
Respiratory: Clear
Cardiac: S1/S2 and Regular Rhythm
GI: Soft, Non Tender and Non Distended
Genito-urinary: Deferred by me
Skin: Warm, Dry and Other (Left TMA appears healing well without any drainage. There is an area of open wound with dressing on but no obvious purulent drainage. There is no surrounding cellulitis at that site. There appears to be an area of
cellulitis at the left ankle medially extending about 5 cm in diameter. NML ROM)
Neuro: AO x 3
Hematologic/Lymphatic: No Lymphadenopathy
Psych: Calm
Laboratory Results
-
06/01/25 00:55
06/01/25 00:55
Laboratory Results
Lactic Acid 1.2 mmol/L (0.7-2.0) 06/01/25 00:57
Total Bilirubin 0.6 mg/dl (0.2-1.3) 06/01/25 00:55
AST 27 U/L (17-59) 06/01/25 00:55
ALT 18 U/L (0-50) 06/01/25 00:55
Alkaline Phosphatase 81 U/L (38-126) 06/01/25 00:55
Data Reviewed
-
Diagnostic Radiology: Image Personally Visualized and interpreted
Medical Tests (Nuc Med, Echo, EKG etc): Image Personally Visualized and interpreted
Lab Data: Labs Reviewed by me
Old Records: Reviewed
Impression/Plan
-
IMPRESSION:
74-year-old transferred from rehab for fever. Source of fever is unclear but appears to be cellulitis of the left lower extremity. ED status post left TMA for left great toe gangrene. He had clean margins after resection and antibiotics
discontinued. He has been afebrile throughout this hospital stay and rehab stay until transfer today. The time of transfer patient had a temp 100.4 and saturation of 88%. Initial evaluation in the ED was negative for COVID flu, chest x-ray which
does not show a clear infiltrate on my examination. X-rays of the foot do not show any abscess, foreign body or new osteo. Examination of the foot reflects cellulitis at the level of the ankle but no evidence of inflammatory/infectious arthritis.
He does have leukocytosis and a fever to 102.8 he on arrival. The rest of his labs are all unchanged from prior. He remains hemodynamically stable with negative lactic acid and glucose is moderately well-controlled.
PLAN:
Fever -source unclear, however given recent surgery and the cellulitis of the lower extremities concern is for possible wound infection. The wound site itself is clean dry without any significant drainage and no immediate surrounding cellulitis.
It is not tender. The cellulitis seems to be at a slightly more proximal location near the ankle without evidence of intra-articular infection. Cannot rule out pneumonia either. He has no acute abdominal symptoms. Urine is still pending.
- admit to med/surg
- blood cultures sent
- u/a w/ reflex pending sample
- neg cov/flu
- IV cefepime + vancomycin for now
-Check CRP/ESR
- ID consultation
Hyponatremia -patient appears to have recurrent hyponatremia in the setting of infectious stressors sodium 127 down from 130 recently
-IV fluids
-1.5 L free water restriction for now
-Treat fever and infection as above
CAD/A-fib
- Continue Eliquis
-Plavix/statin
-Continue digoxin
DM2
- Hold metformin
-Continue Lantus 50 units at bedtime (patient on 56 units)
- Continue aspart 10 units with breakfast, 8 units with lunch and dinner
-Sliding scale insulin
-Continue DAPT Livalo seen
PAD
-Continue Plavix and Eliquis
� Continue Lipitor
-Outpatient limb flow therapy if no evidence of wound infection
DVT prophylaxis�on Eliquis
CODE STATUS-full code
[2025-06-01] MEDS: VANCOCIN 540 MG IV (04:02)
[2025-06-01 04:51] LABS: Urine Character Clear (Clear)
[2025-06-01 05:32] LABS: Urine Squamous Cell None seen /LPF (Few)
[2025-06-01 05:34] LABS: Urine Red Blood Cell 0-2 /HPF (0-2); Urine White Cell 0-2 /HPF (0-5)
[2025-06-01] MEDS: ROXICODONE 5 MG PO ×3 (06:11→20:20)
[2025-06-01] MEDS: TYLENOL 650 MG PO ×2 (06:11→19:34)
--- NOTE | 2025-06-01 07:23 | W.PN.HOSP.TC ---
Today's Communication/Plan
-
See plan
Assessment / Plan
Assessment / Plan
Physical Exam
General: Not in acute distress
HEENT: Normocephalic
Respiratory: Clear to Auscultation Bilaterally
Cardiac: S1/S2 and Regular Rhythm
GI: Soft, Non Tender and Non Distended. Positive bowel sounds.
Extremities: Left foot TMA is present
Skin: Warm, Dry
Neuro: AAO x 3
Psych: Calm
Assessment/Plan
74-year-old male with multiple comorbidities most notable for a recent left TMA on 05/17 for PAD with obliterative vascular insufficiency she was transferred from rehab to the ED on 05/31/25 for a fever 100.4 at rehab and desaturation to 88% on room
air.
Briefly, patient has a history of [place], hypertension, development of atrial fibrillation and initiation of Eliquis, patient on digoxin electively atrial fibrillation but unclear, history of PAD with a prior right BKA and recent development of severe
distal small vessel open received PAD status post initially great toe amputation and more recently admission for vascular insufficiency and gangrene of the left great toe. There was attempt at salvage with oral limb flow procedure that was
unsuccessful. He was ultimately taken to the OR for left open TMA. He had clear margins and IV antibiotics were discontinued on 05/24. He had a polymicrobial wound cultures and negative blood cultures. He was discharged to rehab with plan to attempt
repeat limb fluid therapy. If revascularization fails he is a candidate for amputation. He had been at rehab and then developed a fever today.
Patient reports intermittent sharp pain in the left lower limb which he states has not changed recently. He denied any swelling. He denied any new numbness or tingling. He denied any cough or shortness of breath. He denied abdominal pain nausea
or vomiting. He denied having any diarrhea. He denied any new rash.
He was transferred to the emergency department for the fever in the ED he had a Tmax of 102.8, blood pressure was 130/60 with a pulse of 105 and was satting 94% on 2 L.
His chest x-ray showed no acute infiltrates. COVID test was negative. Flu test was negative.
White count was 12.4, is hemoglobin was 8.7 similar to prior with a normal platelet count. Sodium is down to 127 again down from a baseline in the low 130s.

Fever
Leukocytosis
Possible Right Lower Lobe Pneumonia
Elevated CRP
Recent left great toe gangrene without sepsis.
- The recent TMA of the left foot appears clean
- Wound Care
- Check CRP/ESR
- ID consultation appreciated
- Stop Vancomycin and Cefepime and start Ceftriaxone
PAD
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
- Continue Plavix and Eliquis
- Continue Lipitor
- Outpatient limb flow therapy if no evidence of wound infection
Hyponatremia -patient appears to have recurrent hyponatremia in the setting of infectious stressors sodium 127 down from 130 recently
-IV fluids
-Daily 40 ounce PO FR
-Treat fever and infection as above
-If not improving, then will consult nephrology
CAD/A-fib
- Continue Eliquis
- Plavix/statin
- Continue digoxin
Chronic Hypotension
- Continue Midodrine
DM2
- Hold metformin
- Continue Lantus 50 units at bedtime (patient on 56 units)
- Continue aspart 10 units with breakfast, 8 units with lunch and dinner
- Sliding scale insulin
DVT prophylaxis�on Eliquis
CODE STATUS-full code
This is a non-billable note.
Anticipated Discharge: > 48 hours
Subjective/Interval History
-
Date of Service: June 01, 2025
Patient was seen and examined. He denied any fever, chest pain, shortness or any other complaints. He was eating and drinking breakfast fine.
Objective Data
-
Labs:
Laboratory Results
06/01/25 06/01/25
00:55 06:00
WBC 12.4 H Pending
Hgb 8.7 L Pending
Hct 25.9 L Pending
Plt Count 320 D Pending
Sodium 127 L Pending
Potassium 4.2 Pending
Chloride 93 L Pending
Carbon Dioxide 26 Pending
BUN 21 H Pending
Creatinine 1.2 Pending
Glucose 185 H Pending
Calcium 8.3 L Pending
Total Bilirubin 0.6
AST 27
ALT 18
Alkaline Phosphatase 81
Vital Signs:
Vital Signs
Temp Pulse Resp BP Pulse Ox
101.8 F H 103 20 123/64 96
06/01/25 05:54 06/01/25 05:54 06/01/25 05:54 06/01/25 05:54 06/01/25 05:54
[2025-06-01 08:23] LABS: Hematocrit 25.6 % (39.0-52.0); Hemoglobin 8.5 g/dL (13.0-18.0); Mean Corp Hgb Conc. 33.2 g/dL (33.0-37.0); Mean Corpuscular Volume 88.9 fL (80.0-94.0); Platelet Count 271 10^3/uL (130-400); Red Cell Dist. Width 13.9 % (11.5-14.5)
[2025-06-01 08:47] LABS: Glucose - Point of Care 195 mg/dl (70-99)
[2025-06-01 08:49] LABS: Blood Urea Nitrogen 22 mg/dl (9-20); Calcium 8.3 mg/dl (8.4-10.2); Carbon Dioxide 26 mmol/L (22-30); Chloride 96 mmol/L (98-107); Estimated Creatinine Clearance 62 ml/min; Glucose 206 mg/dl (70-99); Potassium 4.2 mmol/L (3.5-5.1); Sodium 127 mmol/L (135-145); eGFR > 60.00
--- NOTE | 2025-06-01 09:13 | PHA.VAN.IN ---
Assessment
- Assessment
Renal Function: SCR Appears Elevated from baseline (SCR 1.2 vs ~0.8)
Concomitant Antimicrobials: cefepime
Plan
- Plan
Initial / Loading Dose: 2000mg - 06/01
Maintenance Regimen: dosing by level
Monitoring: random 06/02 0600
Pharmacokinetics Vancomycin I
- -
Patient Age: 74
Patient Sex: Male
Vancomycin Day #: 1
Indication: Skin And Soft Tissue
Requesting Provider: Dr. Garcias
Pertinent Antimicrobial Allergies:
NKDA
Height / Weight:
Height 5 ft 10 in
Actual Weight 95.799 kg
Pertinent Past Medical History: BMI ~30, PAD, R. BKA, DM 2
- Vital Signs / Lab Results
Temp Pulse Resp BP Pulse Ox
99.0 F 97 18 93/49 99
06/01/25 07:18 06/01/25 07:18 06/01/25 07:18 06/01/25 07:18 06/01/25 07:18
Lab Results - Hematology
06/01/25 06/01/25
00:55 08:11
WBC 12.4 H 12.1 H
Lab Results - Chemistry
06/01/25 06/01/25
00:55 08:11
BUN 21 H 22 H
Creatinine 1.2 1.2
Estimated Creat Clear 63 62
Albumin 3.3 L
06/01/25
00:57
Lactic Acid 1.2
Lab Results - Urine
06/01/25
04:26
Urine Nitrite (Reflex) Negative
Leukocyte Esterase Rfl Negative
Urine WBC (Reflex) 0-2
Ur Squamous Epith Cells None seen
Urine Bacteria (Reflex) Moderate A
Microbiology Results
06/01/25 01:20 Influenza Types A & B (ZHOU) - Final
Nasal Swab Negative for Influenza A & B, NAAT
Negative results must be combined with clinical observations
and patient history.
Nucleic Acid Amplification test (NAAT)performed on the
[employer] platform.
[2025-06-01 09:18] LABS: C-Reactive Protein > 270.00 mg/L (0.0-10.00)
[2025-06-01] MEDS: MAXIPIME 1000 MG IV (09:20)
[2025-06-01] MEDS: NEURONTIN 300 MG PO ×3 (09:20→22:24)
[2025-06-01] MEDS: STERILE WATER FOR INJECTION 10 ML IV (09:20)
[2025-06-01] MEDS: LANOXIN 125 MCG PO (09:20)
[2025-06-01] MEDS: ELIQUIS 5 MG PO ×2 (09:21→19:34)
[2025-06-01] MEDS: FARXIGA 10 MG PO (09:21)
[2025-06-01] MEDS: PLAVIX 75 MG PO (09:21)
[2025-06-01] MEDS: CYMBALTA DELAYED RELEASE 60 MG PO (09:21)
[2025-06-01] MEDS: NOVOLOG FLEXPEN-MODERATE RESISTANCE 1 UNITS SC (09:42)
[2025-06-01] MEDS: NOVOLOG FLEXPEN 10 UNITS SC (09:43)
--- NOTE | 2025-06-01 12:20 | CON.ID ---
Consultation
-
Date/Time Consultation Requested: 06/01/25 5:53
Date/Time Consultation Performed: 06/01/25 12:20
Requesting Provider: Dr Garcias
Performing Provider: Dr Cerda
Reason for Consultation: Fever unclear source, cellulitis, recent TMA f/ L g toe gangrene, wound ok
Chief Complaint / Past History
Chief Complaint
fever
History of Present Illness
Mr Miller is a 74 year old male with prior right BKA and a recent left TMA on 05/17 for gangrene of the L great toe. Attempt a limb salvage was unsuccessful and she was taken for TMA. He had clear margins and IV antibiotics were discontinued on
05/24. He had a polymicrobial wound cultures and negative blood cultures. there were plans for a reattempt at limb flow therapy and if that failed amputation. Since then he has had ongoing sharp pain, no swelling. Has nausea, vomiting last night.
Denies: headaches, sore throat, cough, sputum production, dysuria, urgency, new rashes, pains at previous PIV sites.
He was transferred from rehab to the ED for a fever 100.4 at rehab and desaturation to 88% on room air.
He denies any cough or shortness of breath. He denies abdominal pain nausea or vomiting. He denies having any diarrhea. He denies any new rash.
In the ER he had a Tmax of 102.8, blood pressure was 130/60 with a pulse of 105 and was satting 94% on 2 L. White count was 12.4, is hemoglobin was 8.7, platelet count 271. Sodium is 127 creatinine was 0.8. Lactic acid was normal at 1.2. UA no
pyuria. ECG shows sinus tachycardia at 106 with known Q waves in lead III and aVF which is unchanged from prior. CXR Patchy parenchymal opacity over the medial right lower lung on the frontal view, which is suspicious for pneumonia. COVID test was
negative. Flu test was negative. Primary team felt he had cellulitis and started him on vancomycin and cefepime. ID is consulted for assistance with management.
Past History
Additional Past Medical History:
HTN, Hypercholesterolemia and NIDDM
Additional Past Surgical History:
as per hpi
Allergy History:
No Known Allergies Allergy (Verified 06/01/25 00:35)
Medications Reviewed: Yes
Social History
Tobacco: Non-Smoker
Alcohol: None
Drug: None
Family History
Family History: Not Pertinent
Review of Systems
Review of Systems
12 point ROS completed and negative except as listed above
Vital Signs
Temp Pulse Resp BP Pulse Ox
99.0 F 86 18 104/56 96
06/01/25 07:18 06/01/25 09:21 06/01/25 07:18 06/01/25 09:21 06/01/25 09:00
Physical Exam
Physical Exam
Constitutional: No Acute Distress and Chronically Ill
Cardiovascular: Regular Rate and S1/S2; Negative Murmur or Rub
Pulmonary: Clear and Symmetric; Negative Wheezes, Rales or Rhonchi
Gastrointestinal: Soft, Non Tender, Non Distended and Normal Bowel Sounds
Skin: Warm and Dry; Negative Rash or Jaundice
Lab / Diagnostic Study Results
06/01/25 08:11
06/01/25 08:11
Abs Immat Gran (auto) 0.1 10^3/uL (0-0.05) H 06/01/25 00:55
Absolute Neuts (auto) 9.9 10^3/uL (1.4-6.5) H 06/01/25 00:55
Absolute Lymphs (auto) 1.4 10^3/uL (1.2-3.4) 06/01/25 00:55
Absolute Monos (auto) 1.1 10^3/uL (0.1-0.6) H 06/01/25 00:55
Absolute Basos (auto) 0.1 10^3/uL (0-0.2) 06/01/25 00:55
Immature Gran % 0.5 % (0-0.5) 06/01/25 00:55
Neutrophils % 79.2 % (42.2-75.2) H 06/01/25 00:55
Lymphocytes % 10.9 % (20.5-51.1) L 06/01/25 00:55
Monocytes % 8.7 % (1.7-9.3) 06/01/25 00:55
Eosinophils % 0.1 % (0-6) 06/01/25 00:55
Basophils % 0.6 % (0-2) 06/01/25 00:55
ESR 116 mm/hour (0-20) H 06/01/25 08:11
Lactic Acid 1.2 mmol/L (0.7-2.0) 06/01/25 00:57
C-Reactive Protein > 270.00 mg/L (0.0-10.00) H 06/01/25 08:11
Ur Squamous Epith Cells None seen /LPF (Few) 06/01/25 04:26
Microbiology Results
Micro:
06/01/25 04:26 Urine Culture - Pending
Urine
06/01/25 04:08 MRSA Screen - Pending
Nose
06/01/25 01:20 Influenza Types A & B (ZHOU) - Final
Nasal Swab Negative for Influenza A & B, NAAT
Negative results must be combined with clinical observations
and patient history.
Nucleic Acid Amplification test (NAAT)performed on the
[employer] platform.
06/01/25 01:27 Blood Culture - Pending
Blood/Venous
06/01/25 01:27 Blood Culture - Pending
Blood/Venous
Assessment / Plan
Fever
Leukocytosis
Possible Pneumonia
Recent TMA of the L foot
- surgical site is clean without surrounding erythema, no odor, no wound breakdown
- clean wound with 1/4 strength dakins then dress wound with adaptic and clean kerlex dressing for the weekend; wound care consult tuesday
- start ceftriaxone, stop vancomycin and cefepime
- follow clinically
[2025-06-01 12:43] LABS: Glucose - Point of Care 237 mg/dl (70-99)
[2025-06-01] MEDS: NOVOLOG FLEXPEN-MODERATE RESISTANCE 3 UNITS SC (13:02)
[2025-06-01] MEDS: NOVOLOG FLEXPEN 8 UNITS SC ×2 (13:03→17:54)
--- NOTE | 2025-06-01 14:17 | CM ---
Initial assessment completed with pt at bedside.
Pt is a 74yr old admitted from [facility] with a fever and pain in the Left Lower Limb.
Pt previously admitted and received TMA of foot and then transferred to [place].
Per daughter, Nehemiah was planned to dc from [place] on with [facility].
Pt lives in a 1 story home with a stairglide to enter. Pt is indep at baseline and uses a cane, RW, and w/c. Pt does have a R leg prosthetic
Pt has used [facility] and has been to [facility].
Will be here through the weekend for Wound consult Tuesday. Is being treated for possible Pneumonia.
PLAN; TBD, watch for needs. Daughter would like to see pt return to [place] if appropriate
[2025-06-01] MEDS: STERILE WATER FOR INJECTION 20 ML IV (14:27)
[2025-06-01] MEDS: ROCEPHIN 2000 MG IV (14:27)
[2025-06-01 17:53] LABS: Glucose - Point of Care 282 mg/dl (70-99)
[2025-06-01] MEDS: NOVOLOG FLEXPEN-MODERATE RESISTANCE 5 UNITS SC (17:53)
--- NOTE | 2025-06-01 21:21 | W.PN.UPDATE ---
Update Note
Progress Note Update
~ 21:00 TT from RN, pt temp 102.3, even after given Tylenol. Ordered Cooling blanket, as increased bleeding risk for NSAIDS being that patient on Eliquis and Plavix already.
~23:45 Rectal temp 102.8, given Tylenol 1g IV. ~ midnight Repeat rectal temperature 101.2. Repeat temp 97.6
Critical value received: Gram stain of aerobic and anaerobic blood culture bottle reveals Gram Negative Bacilli. Slide to be reviewed in morning on 06/02/25 by microbiology�tech.�
Pt on Ceftriaxone 2 g IV per ID. Antibiotics continued as ordered. Ordered repeat blood cultures.
--- NOTE | 2025-06-01 21:53 | PTCARENOTE ---
Advised coverng provider of blood culture results.
[2025-06-01 21:55] LABS: Glucose - Point of Care 190 mg/dl (70-99)
[2025-06-01] MEDS: LIPITOR 80 MG PO (22:24)
[2025-06-01] MEDS: LANTUS 0.5 UNITS SC (22:24)
[2025-06-01] MEDS: OFIRMEV 100 IV (23:43)
[2025-06-02] VITALS (7 sets, daily range): BP systolic 103–115; BP diastolic 49–55
--- NOTE | 2025-06-02 00:09 | PTCARENOTE ---
Patient's temp down to 101.2 Rectally following Ofirmev infusion. OLGA Monroy said we could hold off on the cooling blanket, just keep it in the room.
[2025-06-02 07:39] LABS: Glucose - Point of Care 216 mg/dl (70-99)
[2025-06-02] MEDS: NOVOLOG FLEXPEN-MODERATE RESISTANCE 3 UNITS SC (08:00)
[2025-06-02] MEDS: NOVOLOG FLEXPEN 10 UNITS SC (08:00)
[2025-06-02] MEDS: CYMBALTA DELAYED RELEASE 60 MG PO (08:01)
[2025-06-02] MEDS: PLAVIX 75 MG PO (08:01)
[2025-06-02] MEDS: ELIQUIS 5 MG PO ×2 (08:01→20:26)
[2025-06-02] MEDS: LANOXIN 125 MCG PO (08:02)
[2025-06-02] MEDS: NEURONTIN 300 MG PO ×3 (08:02→20:26)
[2025-06-02] MEDS: FARXIGA 10 MG PO (08:02)
[2025-06-02 08:06] LABS: Hematocrit 26.7 % (39.0-52.0); Hemoglobin 8.8 g/dL (13.0-18.0); Mean Corp Hgb Conc. 33.0 g/dL (33.0-37.0); Mean Corpuscular Volume 87.5 fL (80.0-94.0); Nucleated Red Blood Cells % 0 % (-); Platelet Count 248 10^3/uL (130-400); Red Cell Dist. Width 13.9 % (11.5-14.5)
[2025-06-02] MEDS: ROXICODONE 5 MG PO ×2 (08:09→18:41)
--- NOTE | 2025-06-02 08:21 | W.PN.HOSP.TC ---
Today's Communication/Plan
-
Persistent fevers overnight
Bacteremia
Broaden antibiotics back to Cefepime
Increased Insulin regimen -- may need further increase depending on response
Assessment / Plan
Assessment / Plan
Physical Exam
General: Not in acute distress
HEENT: Normocephalic
Respiratory: Clear to Auscultation Bilaterally
Cardiac: S1/S2 and Regular Rhythm
GI: Soft, Non Tender and Non Distended. Positive bowel sounds.
Extremities: Left foot TMA is present
Skin: Warm, Dry
Neuro: AAO x 3
Psych: Calm
Assessment/Plan
74-year-old male with multiple comorbidities most notable for a recent left TMA on 05/17 for PAD with obliterative vascular insufficiency she was transferred from rehab to the ED on 05/31/25 for a fever 100.4 at rehab and desaturation to 88% on room
air.
Briefly, patient has a history of [place], hypertension, development of atrial fibrillation and initiation of Eliquis, patient on digoxin electively atrial fibrillation but unclear, history of PAD with a prior right BKA and recent development of severe
distal small vessel open received PAD status post initially great toe amputation and more recently admission for vascular insufficiency and gangrene of the left great toe. There was attempt at salvage with oral limb flow procedure that was
unsuccessful. He was ultimately taken to the OR for left open TMA. He had clear margins and IV antibiotics were discontinued on 05/24. He had a polymicrobial wound cultures and negative blood cultures. He was discharged to rehab with plan to attempt
repeat limb fluid therapy. If revascularization fails he is a candidate for amputation. He had been at rehab and then developed a fever today.
Patient reports intermittent sharp pain in the left lower limb which he states has not changed recently. He denied any swelling. He denied any new numbness or tingling. He denied any cough or shortness of breath. He denied abdominal pain nausea
or vomiting. He denied having any diarrhea. He denied any new rash.
He was transferred to the emergency department for the fever in the ED he had a Tmax of 102.8, blood pressure was 130/60 with a pulse of 105 and was satting 94% on 2 L.
His chest x-ray showed no acute infiltrates. COVID test was negative. Flu test was negative.
White count was 12.4, is hemoglobin was 8.7 similar to prior with a normal platelet count. Sodium is down to 127 again down from a baseline in the low 130s.

Fever
Leukocytosis
Possible Right Lower Lobe Pneumonia
Gram Negative Bacteremia -- Serratia -- suspected pulmonary source
Elevated CRP
Recent left great toe gangrene without sepsis.
- The recent TMA of the left foot appears clean
- Wound Care
- CRP>270 and ESR at 116, likely from infection
- ID consultation appreciated
- Initially Vancomycin and Cefepime were given --> narrowed to Ceftriaxone --> then broadened to Cefepime given gram negative organisms (Serratia) growing in blood cultures
- Follow repeat blood cultures
Peripheral Artery Disease
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
- Continue Plavix and Eliquis
- Continue Lipitor
- Outpatient limb flow therapy if no evidence of wound infection
Concern for Encephalopathy by patient's family
-Patient's daughter Lakia mentioned that patient has not been himself, taking a while to think about things and to answer questions
-Could be from infection, recent procedures, antibiotics
-Patient remains AAOx3 and has good insight
Hyponatremia
-Now improved
-IV fluids were given
-Continue daily 40 ounce PO FR
-Treat fever and infection as above
History of IN in January 2025 in [facility] (presented with vomiting, chest pain and tiredness)
-As per patient and his daughter
-At that time, he had cardiac cath, he was found to have significant stenosis but a stent could not be placed
-As of 06/02/25, patient denied chest pain, abdominal pain, vomiting, or any symptoms that would suggest an IN
CAD/A-fib
- Continue Eliquis
- Plavix/statin
- Continue digoxin
Chronic Hypotension
- Continue Midodrine
DM2
- Hold metformin
- Increase Lantus 50 units HS to 52 units HS (patient on 56 units at home)
- Increased breakfast Aspart 10 units to 12 units, and increased lunch Aspart to 10 units with lunch and keep dinner Aspart 8 units
- Sliding scale insulin
- Goal glucose 140 to 180
Constipation
- Start scheduled (not PRN) Miralax
DVT prophylaxis�on Eliquis
CODE STATUS-full code
On 06/02/25, I spoke with patient's daughter Lakia, and I answered all of her questions and concerns to satisfaction.
Anticipated Discharge: > 48 hours
Subjective/Interval History
-
Date of Service: June 02, 2025
Patient was seen and examined. He denied any complaints.
Objective Data
-
Labs:
Laboratory Results
06/02/25
07:14
WBC 6.9
Hgb 8.8 L
Hct 26.7 L
Plt Count 248
Sodium Pending
Potassium Pending
Chloride Pending
Carbon Dioxide Pending
BUN Pending
Creatinine Pending
Glucose Pending
Calcium Pending
Vital Signs:
Vital Signs
Temp Pulse Resp BP Pulse Ox
97.6 F 76 18 111/49 95
06/02/25 07:35 06/02/25 08:02 06/02/25 07:35 06/02/25 07:35 06/02/25 07:35
I&O
06/01/25 06/02/25 06/03/25
06:59 06:59 06:59
Intake Total 1500 / 1500
Output Total 2750 / 2750
Balance -1250 / -1250
[2025-06-02 08:34] LABS: Blood Urea Nitrogen 20 mg/dl (9-20); Calcium 8.5 mg/dl (8.4-10.2); Carbon Dioxide 29 mmol/L (22-30); Chloride 97 mmol/L (98-107); Estimated Creatinine Clearance 74 ml/min; Glucose 199 mg/dl (70-99); Potassium 4.3 mmol/L (3.5-5.1); Sodium 132 mmol/L (135-145); eGFR > 60.00
--- NOTE | 2025-06-02 10:31 | W.PN.ID1 ---
Date of Service
Date of Service: June 02, 2025
Today's Communication
- blood cultures x2 with serratia - suspected pulmonary source
- not producing sputum
- restart cefepime
Assessment / Plan
Fever
Leukocytosis
Possible Pneumonia
Recent TMA of the L foot
- surgical site is clean without surrounding erythema, no odor, no wound breakdown
- clean wound with 1/4 strength dakins then dress wound with adaptic and clean kerlex dressing for the weekend; wound care consult tuesday
- blood cultures x2 with serratia - suspected pulmonary source
- not producing sputum
- restart cefepime
- follow clinically
Chief Complaint
-: Fever
Subjective / Review of Systems
fever curve may be improving
bp stable
no new compliants
Vital Signs / Physical Exam
Vital Signs
Vital Signs
Temp Pulse Resp BP Pulse Ox
97.6 F 76 18 111/49 95
06/02/25 07:35 06/02/25 08:02 06/02/25 07:35 06/02/25 07:35 06/02/25 07:35
Physical Exam
Constitutional: No Acute Distress and Chronically Ill
Cardiovascular: Regular Rate and S1/S2; Negative Murmur or Rub
Pulmonary: Clear and Symmetric; Negative Wheezes or Rales
Gastrointestinal: Soft, Non Tender, Non Distended and Normal Bowel Sounds
Skin: Warm and Dry; Negative Rash or Jaundice
Objective Data
Lab Data
Lab Results
06/02/25 07:14
06/02/25 07:14
ESR 116 mm/hour (0-20) H 06/01/25 08:11
Estimated Creat Clear 74 ml/min 06/02/25 07:14
Lactic Acid 1.2 mmol/L (0.7-2.0) 06/01/25 00:57
Total Bilirubin 0.6 mg/dl (0.2-1.3) 06/01/25 00:55
AST 27 U/L (17-59) 06/01/25 00:55
ALT 18 U/L (0-50) 06/01/25 00:55
Alkaline Phosphatase 81 U/L (38-126) 06/01/25 00:55
C-Reactive Protein > 270.00 mg/L (0.0-10.00) H 06/01/25 08:11
Most recent labs reviewed.
Micro Results:
06/01/25 01:27 Blood Culture - Preliminary
Blood/Venous Serratia marcescens
Gram Stain - Preliminary
06/01/25 04:08 MRSA Screen - Final
Nose No Methicillin Resistant Staphylococcus aureus isolated.
06/01/25 01:27 Blood Culture - Preliminary
Blood/Venous Positive culture in progress
Gram Stain - Preliminary
06/01/25 23:22 Blood Culture - Pending
Blood/Venous
06/01/25 22:28 Blood Culture - Pending
Blood/Venous
06/01/25 04:26 Urine Culture - Pending
Urine
06/01/25 01:20 Influenza Types A & B (ZHOU) - Final
Nasal Swab Negative for Influenza A & B, NAAT
Negative results must be combined with clinical observations
and patient history.
Nucleic Acid Amplification test (NAAT)performed on the
[employer] platform.
[2025-06-02 12:42] LABS: Glucose - Point of Care 325 mg/dl (70-99)
[2025-06-02] MEDS: STERILE WATER FOR INJECTION 10 ML IV ×3 (12:52→23:46)
[2025-06-02] MEDS: MAXIPIME 1000 MG IV ×3 (12:52→23:45)
[2025-06-02] MEDS: FLUSH (NSS) 2 FLUSH IV ×2 (12:52→18:33)
[2025-06-02] MEDS: NOVOLOG FLEXPEN 8 UNITS SC ×2 (12:55→17:15)
[2025-06-02] MEDS: NOVOLOG FLEXPEN-MODERATE RESISTANCE 7 UNITS SC (12:55)
[2025-06-02] MEDS: DAKIN'S SOLUTION 0.125% 1/4 STRENGTH 473 ML TOPICAL (17:14)
[2025-06-02 17:15] LABS: Glucose - Point of Care 196 mg/dl (70-99)
[2025-06-02] MEDS: NOVOLOG FLEXPEN-MODERATE RESISTANCE 1 UNITS SC (17:15)
[2025-06-02] MEDS: LIPITOR 80 MG PO (20:26)
[2025-06-02] MEDS: TYLENOL 650 MG PO (20:30)
[2025-06-02 21:32] LABS: Glucose - Point of Care 230 mg/dl (70-99)
[2025-06-02] MEDS: LANTUS 0.52 UNITS SC (22:18)
[2025-06-03] VITALS (7 sets, daily range): BP systolic 107–125; BP diastolic 47–61
[2025-06-03] MEDS: MAXIPIME 1000 MG IV (05:16)
[2025-06-03] MEDS: STERILE WATER FOR INJECTION 10 ML IV (05:16)
[2025-06-03 07:34] LABS: Hematocrit 27.0 % (39.0-52.0); Hemoglobin 8.7 g/dL (13.0-18.0); Mean Corp Hgb Conc. 32.2 g/dL (33.0-37.0); Mean Corpuscular Volume 86.8 fL (80.0-94.0); Nucleated Red Blood Cells % 0 % (-); Platelet Count 245 10^3/uL (130-400); Red Cell Dist. Width 14.0 % (11.5-14.5)
[2025-06-03 07:59] LABS: Glucose - Point of Care 164 mg/dl (70-99)
[2025-06-03 08:02] LABS: Blood Urea Nitrogen 17 mg/dl (9-20); Calcium 8.8 mg/dl (8.4-10.2); Carbon Dioxide 29 mmol/L (22-30); Chloride 98 mmol/L (98-107); Estimated Creatinine Clearance 93 ml/min; Glucose 156 mg/dl (70-99); Potassium 3.9 mmol/L (3.5-5.1); Sodium 134 mmol/L (135-145); eGFR > 60.00
[2025-06-03] MEDS: NOVOLOG FLEXPEN-MODERATE RESISTANCE 1 UNITS SC ×2 (08:20→16:58)
[2025-06-03] MEDS: CYMBALTA DELAYED RELEASE 60 MG PO (08:22)
[2025-06-03] MEDS: LANOXIN 125 MCG PO (08:22)
[2025-06-03] MEDS: MIRALAX 17 GRAMS PO (08:22)
[2025-06-03] MEDS: ELIQUIS 5 MG PO ×2 (08:22→20:07)
[2025-06-03] MEDS: PLAVIX 75 MG PO (08:23)
[2025-06-03] MEDS: FARXIGA 10 MG PO (08:23)
[2025-06-03] MEDS: NEURONTIN 300 MG PO ×3 (08:23→21:46)
[2025-06-03] MEDS: NOVOLOG FLEXPEN 12 UNITS SC (08:24)
[2025-06-03] MEDS: ROXICODONE 5 MG PO ×2 (08:24→20:07)
[2025-06-03] MEDS: DAKIN'S SOLUTION 0.125% 1/4 STRENGTH 473 ML TOPICAL (08:31)
--- NOTE | 2025-06-03 09:15 | W.PN.HOSP.TC ---
Addendum entered and electronically signed by Nu Amos MD 06/04/25 06:58:
Addendum
Sacrum and buttocks non blanchable, pressure ulcer, POA, stage 1 PI.
Original Note:
Today's Communication/Plan
-
.
Assessment / Plan
Assessment / Plan
Physical Exam
General: Not in acute distress
HEENT: Normocephalic
Respiratory: Clear to Auscultation Bilaterally
Cardiac: S1/S2 and Regular Rhythm
GI: Soft, Non Tender and Non Distended. Positive bowel sounds.
Extremities: Left foot TMA is present
Skin: Warm, Dry
Neuro: AAO x 3
Psych: Calm
Assessment/Plan
74-year-old male with multiple comorbidities most notable for a recent left TMA on 05/17 for PAD with obliterative vascular insufficiency she was transferred from rehab to the ED on 05/31/25 for a fever 100.4 at rehab and desaturation to 88% on room
air.
Briefly, patient has a history of [place], hypertension, development of atrial fibrillation and initiation of Eliquis, patient on digoxin electively atrial fibrillation but unclear, history of PAD with a prior right BKA and recent development of severe
distal small vessel open received PAD status post initially great toe amputation and more recently admission for vascular insufficiency and gangrene of the left great toe. There was attempt at salvage with oral limb flow procedure that was
unsuccessful. He was ultimately taken to the OR for left open TMA. He had clear margins and IV antibiotics were discontinued on 05/24. He had a polymicrobial wound cultures and negative blood cultures. He was discharged to rehab with plan to attempt
repeat limb fluid therapy. If revascularization fails he is a candidate for amputation. He had been at rehab and then developed a fever today.
Patient reports intermittent sharp pain in the left lower limb which he states has not changed recently. He denied any swelling. He denied any new numbness or tingling. He denied any cough or shortness of breath. He denied abdominal pain nausea
or vomiting. He denied having any diarrhea. He denied any new rash.
He was transferred to the emergency department for the fever in the ED he had a Tmax of 102.8, blood pressure was 130/60 with a pulse of 105 and was satting 94% on 2 L.
His chest x-ray showed no acute infiltrates. COVID test was negative. Flu test was negative.
White count was 12.4, is hemoglobin was 8.7 similar to prior with a normal platelet count. Sodium is down to 127 again down from a baseline in the low 130s.

Fever
Leukocytosis
Possible Right Lower Lobe Pneumonia
Gram Negative Bacteremia -- Serratia -- suspected pulmonary source
Elevated CRP
Recent left great toe gangrene without sepsis.
- The recent TMA of the left foot appears clean
- Wound Care
- CRP>270 and ESR at 116, likely from infection
- ID consultation appreciated
- Initially Vancomycin and Cefepime were given --> narrowed to Ceftriaxone --> then broadened to Cefepime given gram negative organisms (Serratia) growing in blood cultures
- Follow repeat blood cultures on 06/01 , so far NGTD
WBC back to normal
Peripheral Artery Disease
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
- Continue Plavix and Eliquis
- Continue Lipitor
- Outpatient limb flow therapy if no evidence of wound infection
Concern for Encephalopathy by patient's family
-Patient's daughter Lakia mentioned that patient has not been himself, taking a while to think about things and to answer questions
-Could be from infection, recent procedures, antibiotics
-Patient remains AAOx3 and has good insight
Hyponatremia
-Now improved
-IV fluids were given
-Continue daily 40 ounce PO FR
-Treat fever and infection as above
History of NV in January 2025 in [facility] (presented with vomiting, chest pain and tiredness)
-As per patient and his daughter
-At that time, he had cardiac cath, he was found to have significant stenosis but a stent could not be placed
patient denied chest pain, abdominal pain, vomiting, or any symptoms that would suggest an NV
CAD/A-fib
- Continue Eliquis
- Plavix/statin
- Continue digoxin
Chronic Hypotension
- Continue Midodrine
DM2
- Resume metformin
- Increase Lantus 50 units HS to 56 units HS (patient on 56 units at home)
- Increased breakfast Aspart 10 units to 12 units, and increased lunch Aspart to 10 units with lunch and keep dinner Aspart 8 units
- Sliding scale insulin
Constipation
- Started scheduled (not PRN) Miralax. Add Dulcolax
DVT prophylaxis�on Eliquis
CODE STATUS-full code
On 06/02/25, DR Dumont spoke with patient's daughter Lakia.
Total time spent to see the patient, examine the patient, review data and lab results, discuss treatment plan with patient, nursing staff around 55 minutes
Anticipated Discharge: 24 - 48 hours
Subjective/Interval History
-
Date of Service: June 03, 2025
No chest pain
No sob
Was asking for pain medicine for chronic leg pain
Objective Data
-
Labs:
Laboratory Results
06/03/25
07:03
WBC 7.1
Hgb 8.7 L
Hct 27.0 L
Plt Count 245
Sodium 134 L
Potassium 3.9
Chloride 98
Carbon Dioxide 29
BUN 17
Creatinine 0.8
Glucose 156 H
Calcium 8.8
Vital Signs:
Vital Signs
Temp Pulse Resp BP Pulse Ox
98.9 F 84 20 115/61 95
06/03/25 07:15 06/03/25 08:23 06/03/25 07:15 06/03/25 08:23 06/03/25 07:15
I&O
06/02/25 06/03/25 06/04/25
06:59 06:59 06:59
Intake Total 1500 / 1500 1225 / 1225
Output Total 2750 / 2750 1580 / 1580
Balance -1250 / -1250 -355 / -355
--- NOTE | 2025-06-03 10:01 | W.PN.ID1 ---
Date of Service
Date of Service: June 03, 2025
Today's Communication
- transition to ciprofloxacin 750 mg po BID x 5 more days
- hold statin while on ciprofloxacin
Assessment / Plan
Fever - resolved
Leukocytosis - resolved
Possible Pneumonia
Recent TMA of the L foot
- wound care consult today - defer to their wound care plan
- blood cultures x2 with serratia - suspected pulmonary source
- transition to ciprofloxacin 750 mg po BID x 5 more days
- hold statin while on ciprofloxacin
- follow clinically
Chief Complaint
-: Fever
Subjective / Review of Systems
fever has resolved
bp stable
Vital Signs / Physical Exam
Vital Signs
Vital Signs
Temp Pulse Resp BP Pulse Ox
98.9 F 84 20 115/61 95
06/03/25 07:15 06/03/25 08:23 06/03/25 07:15 06/03/25 08:23 06/03/25 07:15
Physical Exam
Constitutional: No Acute Distress
Cardiovascular: Regular Rate and S1/S2; Negative Murmur or Rub
Pulmonary: Clear and Symmetric; Negative Wheezes or Rales
Gastrointestinal: Soft, Non Tender, Non Distended and Normal Bowel Sounds
Skin: Warm and Dry; Negative Rash or Jaundice
Objective Data
Lab Data
Lab Results
06/03/25 07:03
06/03/25 07:03
ESR 116 mm/hour (0-20) H 06/01/25 08:11
Estimated Creat Clear 93 ml/min 06/03/25 07:03
Lactic Acid 1.2 mmol/L (0.7-2.0) 06/01/25 00:57
Total Bilirubin 0.6 mg/dl (0.2-1.3) 06/01/25 00:55
AST 27 U/L (17-59) 06/01/25 00:55
ALT 18 U/L (0-50) 06/01/25 00:55
Alkaline Phosphatase 81 U/L (38-126) 06/01/25 00:55
C-Reactive Protein > 270.00 mg/L (0.0-10.00) H 06/01/25 08:11
Most recent labs reviewed.
Micro Results:
06/01/25 01:27 Blood Culture - Preliminary
Blood/Venous Serratia marcescens
Gram Stain - Final
06/01/25 01:27 Blood Culture - Preliminary
Blood/Venous Serratia marcescens
Gram Stain - Final
06/01/25 23:22 Blood Culture - Preliminary
Blood/Venous No Growth in 24 hours- Final report to follow
06/01/25 22:28 Blood Culture - Preliminary
Blood/Venous No Growth in 24 hours- Final report to follow
06/01/25 04:26 Urine Culture - Final
Urine
06/01/25 04:08 MRSA Screen - Final
Nose No Methicillin Resistant Staphylococcus aureus isolated.
06/01/25 01:20 Influenza Types A & B (ZHOU) - Final
Nasal Swab Negative for Influenza A & B, NAAT
Negative results must be combined with clinical observations
and patient history.
Nucleic Acid Amplification test (NAAT)performed on the
[employer] platform.
[2025-06-03] MEDS: CIPRO 250 MG PO ×2 (11:18→20:07)
[2025-06-03] MEDS: CIPRO 500 MG PO ×2 (11:18→20:07)
[2025-06-03 12:18] LABS: Glucose - Point of Care 145 mg/dl (70-99)
[2025-06-03] MEDS: NOVOLOG FLEXPEN-MODERATE RESISTANCE SC (12:39)
[2025-06-03] MEDS: NOVOLOG FLEXPEN 10 UNITS SC (12:40)
[2025-06-03] MEDS: STERILE WATER FOR INJECTION IV ×3 (12:47→21:52)
--- NOTE | 2025-06-03 12:51 | CM ---
CM following re: discharge planning.
Reviewed pt's chart, met with pt.
Per CM note, pt is admitted from [facility] and both pt and his family would like pt returns back to [facility] if appropriate.
PT and OT will evaluate the pt to determine a level of care at discharge.
Per family request, a referral to [facility] made.
D/C plan: [facility] if recommended by PT.
CM will follow with discharge plan updates as hospitalization progresses
--- NOTE | 2025-06-03 13:30 | WOUNDNOTE ---
WO RN note: Patient admitted with sepsis.
See H&P for complete history. From [facility].
PMH: patient has a history of [place], hypertension, development of atrial fibrillation and initiation of Eliquis, patient on digoxin electively atrial fibrillation but unclear, history of PAD with a prior right BKA and recent development of severe
distal small vessel open received PAD status post initially great toe amputation and more recently admission for vascular insufficiency and gangrene of the left great toe. There was attempt at salvage with oral limb flow procedure that was
unsuccessful.. He was ultimately taken to the OR for left open TMA.
Wound Location and type/assessment: Patient admitted with: Non healing surgical post L TMA amputation by Dr. Ledesma on 05/17/25. Now with medial open edge, [place] slough mixed with pink, slight odor. lateral edge of site with eschar embedded within
sutures. L heel is intact, multipodus boot in use. + posterior tibial pulse with Doppler, skin warm and dry. R BKA stump intact. Sacrum and buttocks non blanchable, stage 1 PI. Patient reports he has not been bearing weight on L leg. Has not been
able to follow up with Dr. ledesma patient states.
Appetite: Fair, encouraged protein in diet.
Pressure redistribution devices in place: On [facility] care air bed. Turning schedule, Pillow under L leg.
Plan: Continue cleaning with Dakin's, adaptic, dry dressing. Recommend podiatry consult, debridement appropriate? Wound care already on order and Dr. Cerda in agreement of the above. Dr. Amos notified of the above and will put in Podiatry
consult. Updated nurse, care plan and will follow as needed.
Note to case management of equipment requested for discharge: TBD
Recommend follow up with Financial Reporting Director.
[2025-06-03] MEDS: GLUCOPHAGE 1000 MG PO (16:08)
--- NOTE | 2025-06-03 16:30 | W.PN.UPDATE ---
Update Note
Progress Note Update
74 M presents s/p L guillotine TMA w/ retention stitches. poor healing potential
- patient to follow with Vascular for tentative Limflow procedure, previously discussed poor salvageability of foot w/o adequate perfusion for healing.
- LWC rendered : Dakins wet to dry
- continue PO abx, per ID recs
- PWB to heel for transfers
- will follow while inpatient, may follow up in office
[2025-06-03 16:53] LABS: Glucose - Point of Care 199 mg/dl (70-99)
[2025-06-03] MEDS: NOVOLOG FLEXPEN 8 UNITS SC (16:59)
[2025-06-03] MEDS: DULCOLAX 10 MG PO (21:45)
[2025-06-03] MEDS: LANTUS 0.52 UNITS SC (21:46)
[2025-06-03] MEDS: TYLENOL 650 MG PO (21:46)
[2025-06-03 21:47] LABS: Glucose - Point of Care 207 mg/dl (70-99)
[2025-06-04] VITALS (7 sets, daily range): BP systolic 108–145; BP diastolic 50–77; PULSE 72–73; O2SAT 98
[2025-06-04] MEDS: STERILE WATER FOR INJECTION IV ×2 (04:52→11:59)
[2025-06-04] MEDS: ROXICODONE 5 MG PO ×3 (05:45→15:39)
[2025-06-04 07:42] LABS: Hematocrit 27.6 % (39.0-52.0); Hemoglobin 9.0 g/dL (13.0-18.0); Mean Corp Hgb Conc. 32.6 g/dL (33.0-37.0); Mean Corpuscular Volume 86.8 fL (80.0-94.0); Nucleated Red Blood Cells % 0 % (-); Platelet Count 256 10^3/uL (130-400); Red Cell Dist. Width 14.0 % (11.5-14.5)
[2025-06-04 07:45] LABS: Glucose - Point of Care 149 mg/dl (70-99)
--- NOTE | 2025-06-04 08:04 | WOUNDNOTE ---
XIMENA RN NOTE: Appreciate Podiatry consult, updated wound care orders based on Dr. Blackwell's note. Updated work list and will follow as needed.
[2025-06-04 08:12] LABS: Blood Urea Nitrogen 16 mg/dl (9-20); Calcium 8.3 mg/dl (8.4-10.2); Carbon Dioxide 30 mmol/L (22-30); Chloride 98 mmol/L (98-107); Estimated Creatinine Clearance 93 ml/min; Glucose 148 mg/dl (70-99); Potassium 4.1 mmol/L (3.5-5.1); Sodium 135 mmol/L (135-145); eGFR > 60.00
[2025-06-04] MEDS: CIPRO 500 MG PO (08:38)
[2025-06-04] MEDS: CYMBALTA DELAYED RELEASE 60 MG PO (08:39)
[2025-06-04] MEDS: CIPRO 250 MG PO (08:39)
[2025-06-04] MEDS: FARXIGA 10 MG PO (08:40)
[2025-06-04] MEDS: ELIQUIS 5 MG PO (08:40)
[2025-06-04] MEDS: LANOXIN 125 MCG PO (08:41)
[2025-06-04] MEDS: GLUCOPHAGE 1000 MG PO (08:41)
[2025-06-04] MEDS: PLAVIX 75 MG PO (08:42)
[2025-06-04] MEDS: NEURONTIN 300 MG PO ×2 (08:42→15:39)
[2025-06-04] MEDS: MIRALAX 17 GRAMS PO (08:42)
[2025-06-04] MEDS: NOVOLOG FLEXPEN 12 UNITS SC (08:43)
[2025-06-04] MEDS: NOVOLOG FLEXPEN-MODERATE RESISTANCE SC (09:00)
--- NOTE | 2025-06-04 09:12 | W.PN.HOSP.TC ---
Today's Communication/Plan
-
dc
Assessment / Plan
Assessment / Plan
Physical Exam
General: Not in acute distress
HEENT: Normocephalic
Respiratory: Clear to Auscultation Bilaterally
Cardiac: S1/S2 and Regular Rhythm
GI: Soft, Non Tender and Non Distended. Positive bowel sounds.
Extremities: Left foot TMA is present
Skin: Warm, Dry
Neuro: AAO x 3
Psych: Calm
Assessment/Plan
74-year-old male with multiple comorbidities most notable for a recent left TMA on 05/17 for PAD with obliterative vascular insufficiency she was transferred from rehab to the ED on 05/31/25 for a fever 100.4 at rehab and desaturation to 88% on room
air.
Briefly, patient has a history of NE, hypertension, development of atrial fibrillation and initiation of Eliquis, patient on digoxin electively atrial fibrillation but unclear, history of PAD with a prior right BKA and recent development of severe
distal small vessel open received PAD status post initially great toe amputation and more recently admission for vascular insufficiency and gangrene of the left great toe. There was attempt at salvage with oral limb flow procedure that was
unsuccessful. He was ultimately taken to the OR for left open TMA. He had clear margins and IV antibiotics were discontinued on 05/24. He had a polymicrobial wound cultures and negative blood cultures. He was discharged to rehab with plan to attempt
repeat limb fluid therapy. If revascularization fails he is a candidate for amputation. He had been at rehab and then developed a fever today.
Patient reports intermittent sharp pain in the left lower limb which he states has not changed recently. He denied any swelling. He denied any new numbness or tingling. He denied any cough or shortness of breath. He denied abdominal pain nausea
or vomiting. He denied having any diarrhea. He denied any new rash.
He was transferred to the emergency department for the fever in the ED he had a Tmax of 102.8, blood pressure was 130/60 with a pulse of 105 and was satting 94% on 2 L.
His chest x-ray showed no acute infiltrates. COVID test was negative. Flu test was negative.
White count was 12.4, is hemoglobin was 8.7 similar to prior with a normal platelet count. Sodium is down to 127 again down from a baseline in the low 130s.

Sepsis POA
Fever
Leukocytosis
Possible Right Lower Lobe Pneumonia
Gram Negative Bacteremia -- Serratia -- suspected pulmonary source
Elevated CRP
Recent left great toe gangrene without sepsis.
- The recent TMA of the left foot appears clean
- Wound Care
- CRP>270 and ESR at 116, likely from infection
- ID consultation appreciated
- Initially Vancomycin and Cefepime were given --> narrowed to Ceftriaxone --> then broadened to Cefepime given gram negative organisms (Serratia) growing in blood cultures, now on Cipro.
- Follow repeat blood cultures on 06/01 , so far NGTD
WBC back to normal
Peripheral Artery Disease
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
- Continue Plavix and Eliquis
- Continue Lipitor
- Outpatient limb flow therapy if no evidence of wound infection
Concern for Encephalopathy by patient's family
-Patient's daughter Lakia mentioned that patient has not been himself, taking a while to think about things and to answer questions
-Could be from infection, recent procedures, antibiotics
-Patient remains AAOx3 and has good insight
# Status post left guillotine transmetatarsal amputation with retention stitches placed. There are no acute clinical signs of infection, however, exposed 1st metatarsal.
Pt was seen by podiatry:
Partial weightbearing to the left heel for transfers. Otherwise, nonweightbearing. Local wound care rendered, Dakin's irrigation with Dakin's wet-to-dry dressing. Can continue offloading precautions. Ultimately, patient may follow up in office.
Hyponatremia
-Now improved
-IV fluids were given
-Continue daily 40 ounce PO FR
-Treat fever and infection as above
History of NE in January 2025 in [facility] (presented with vomiting, chest pain and tiredness)
-As per patient and his daughter
-At that time, he had cardiac cath, he was found to have significant stenosis but a stent could not be placed
patient denied chest pain, abdominal pain, vomiting, or any symptoms that would suggest an NE
CAD/A-fib
- Continue Eliquis
- Plavix/statin
- Continue digoxin
Chronic Hypotension
- Continue Midodrine
DM2
- Resume metformin
- Increase Lantus 50 units HS to 56 units HS (patient on 56 units at home)
- Increased breakfast Aspart 10 units to 12 units, and increased lunch Aspart to 10 units with lunch and keep dinner Aspart 8 units
- Sliding scale insulin
Constipation
- Started scheduled (not PRN) Miralax. Add Dulcolax
DVT prophylaxis�on Eliquis
CODE STATUS-full code
Total dc time spent to see the patient, examine the patient, review data and lab results, discuss discharge plan with patient, nursing staff around 65 minutes
Anticipated Discharge: Today
Subjective/Interval History
-
Date of Service: June 04, 2025
No chest pain
No sob
No fevers
Objective Data
-
Labs:
Laboratory Results
06/04/25
06:37
WBC 8.4
Hgb 9.0 L
Hct 27.6 L
Plt Count 256
Sodium 135
Potassium 4.1
Chloride 98
Carbon Dioxide 30
BUN 16
Creatinine 0.8
Glucose 148 H
Calcium 8.3 L
Vital Signs:
Vital Signs
Temp Pulse Resp BP Pulse Ox
98.2 F 70 14 135/56 96
06/04/25 08:15 06/04/25 08:43 06/04/25 08:15 06/04/25 08:43 06/04/25 08:15
I&O
06/03/25 06/04/25 06/05/25
06:59 06:59 06:59
Intake Total 1225 / 1225 1438 / 1438
Output Total 1580 / 1580 1550 / 1550
Balance -355 / -355 -112 / -112
--- NOTE | 2025-06-04 10:42 | W.PN.ID1 ---
Date of Service
Date of Service: June 04, 2025
Today's Communication
- c/w to ciprofloxacin 750 mg po BID x 4 more days
- hold statin while on ciprofloxacin
Assessment / Plan
Fever - resolved
Leukocytosis - resolved
Possible Pneumonia
Recent TMA of the L foot
- blood cultures x2 with serratia - suspected pulmonary source
- c/w to ciprofloxacin 750 mg po BID x 4 more days
- hold statin while on ciprofloxacin
- follow clinically
Chief Complaint
-: Fever
Subjective / Review of Systems
had a single fever of 100.8 overnight - since resolved
bp stable
no other events overnight
Vital Signs / Physical Exam
Vital Signs
Vital Signs
Temp Pulse Resp BP Pulse Ox
98.2 F 70 14 135/56 96
06/04/25 08:15 06/04/25 08:43 06/04/25 08:15 06/04/25 08:43 06/04/25 08:15
Physical Exam
Constitutional: No Acute Distress
Cardiovascular: Regular Rate and S1/S2; Negative Murmur or Rub
Pulmonary: Clear and Symmetric; Negative Wheezes or Rales
Gastrointestinal: Soft, Non Tender, Non Distended and Normal Bowel Sounds
Skin: Warm and Dry; Negative Rash or Jaundice
Wound: Other (some scant slough, granulation tissue, no significant drainage or odor)
Objective Data
Lab Data
Lab Results
06/04/25 06:37
06/04/25 06:37
ESR 116 mm/hour (0-20) H 06/01/25 08:11
Estimated Creat Clear 93 ml/min 06/04/25 06:37
Lactic Acid 1.2 mmol/L (0.7-2.0) 06/01/25 00:57
Total Bilirubin 0.6 mg/dl (0.2-1.3) 06/01/25 00:55
AST 27 U/L (17-59) 06/01/25 00:55
ALT 18 U/L (0-50) 06/01/25 00:55
Alkaline Phosphatase 81 U/L (38-126) 06/01/25 00:55
C-Reactive Protein > 270.00 mg/L (0.0-10.00) H 06/01/25 08:11
Most recent labs reviewed.
Micro Results:
06/01/25 01:27 Blood Culture - Final
Blood/Venous Serratia marcescens
Gram Stain - Final
06/01/25 01:27 Blood Culture - Final
Blood/Venous Serratia marcescens
Gram Stain - Final
06/01/25 23:22 Blood Culture - Preliminary
Blood/Venous No Growth in 48 hours- Final report to follow
06/01/25 22:28 Blood Culture - Preliminary
Blood/Venous No Growth in 48 hours- Final report to follow
06/01/25 04:26 Urine Culture - Final
Urine
06/01/25 04:08 MRSA Screen - Final
Nose No Methicillin Resistant Staphylococcus aureus isolated.
06/01/25 01:20 Influenza Types A & B ([facility]) - Final
Nasal Swab Negative for Influenza A & B, NAAT
Negative results must be combined with clinical observations
and patient history.
Nucleic Acid Amplification test (NAAT)performed on the
[employer] platform.
--- NOTE | 2025-06-04 10:46 | PN.CDI ---
Addendum entered and electronically signed by Nu Amos MD 06/04/25 12:09:
Sepsis was present on admission
Original Note:
CDI
- -
CDI:
Physician Documentation Request
Admit Date: 06/01/25 05:26
Dear Doctor Bette
The diagnosis of sepsis was documented on 06/01, but is not consistently noted in subsequent documentation.
Patient found to have pneumonia. Blood cultures positive for serratia marcescens.
06/01 WBC 12.4 , presenting temp 102.8, heart rate 104, respiratory rate 20-25
Please clarify the following:
____ - Sepsis was present on admission
____ - Sepsis was ruled out
____ - Other
Use of terms such as suspected, likely, concern for, or probable (associated with a specific diagnosis that is being evaluated, monitored, or treated as if it exists) are acceptable and can be coded in the inpatient setting, when documented at the
time of discharge.
Thank you,
Desiree Morley RN, BSN
CDI Specialist
tiger text
Please use your independent medical judgment in providing your response.
--- NOTE | 2025-06-04 10:51 | PN.CDI ---
Addendum entered and electronically signed by Nu Amos MD 06/04/25 12:10:
Yes, pneumonia is related to/associated with/due to serratia marcescens
Original Note:
CDI
- -
CDI:
Physician Documentation Request
Admit Date: 06/01/25 05:26
Dear Doctor Bette,
Patient being treated for possible right lower lobe pneumonia.
Progress note states 'Gram Negative Bacteremia -- Serratia -- suspected pulmonary source'
Please clarify if a relationship exist between these conditions:
Yes, pneumonia is related to/associated with/due to serratia marcescens
No,pneumonia is not related to/associated with/due to serratia marcescens
Unable to determine
Use of terms such as suspected, likely, concern for, or probable (associated with a specific diagnosis that is being evaluated, monitored, or treated as if it exists) are acceptable and can be coded in the inpatient setting, when documented at the
time of discharge.
Thank you,
Desiree Morley RN, BSN
CDI Specialist
tiger text
Please use your independent medical judgment in providing your response.
--- NOTE | 2025-06-04 11:33 | CM ---
Addendum entered by Robles Friedman 06/04/25 14:47:
CM spoke to [facility] specialist Elizabeth and she confirmed that pt is accepted for admission today. Both pt and his daughter are aware.
IMM reviewed, placed on chart, pt has a copy.
[facility]: [phone]
Discharge instructions fax: [phone]
D/C plan: [facility].
Original Note:
CM following re: discharge planning.
Reviewed pt's chart, met with pt.
Discharge order noted.
CM spoke to [facility] construction specialist Elizabeth [phone] and she stated she is reviewing a referral and will let me know as soon as decision to accept the pt is made.
D/C plan: [facility]. Awaiting for determination.
[2025-06-04 11:47] LABS: Glucose - Point of Care 225 mg/dl (70-99)
[2025-06-04] MEDS: DAKIN'S SOLUTION 0.125% 1/4 STRENGTH 473 ML TOPICAL (11:49)
[2025-06-04] MEDS: NOVOLOG FLEXPEN-MODERATE RESISTANCE 3 UNITS SC (13:12)
[2025-06-04] MEDS: NOVOLOG FLEXPEN 10 UNITS SC (13:13)
[2025-06-04] MEDS: SENOKOT-S 1 TABLET PO (15:03)
--- NOTE | 2025-06-04 17:21 | PTCARENOTE ---
pt discharged to [place] after moderate soft bm this afternoon on bedpan. pt sent with cane, prosthetic, wheelchair, belongings and insulin pen. paperwork also sent up with patient
--- NOTE | 2025-06-05 13:04 | W.DCSUMMARY ---
Discharge Summary
Discharge Data
Date of Admission: 06/01/25
Date of Discharge: 06/04/25
-
Pending Results: No
Hospital Course
74 years old male who was at [facility] following left TMA presented to the emergency room with fever and mild hypoxia. COVID and influenza test were negative. Patient was admitted to the hospital. Chest radiography showed patchy parenchymal
opacity over the medial right lower lung suspicious for pneumonia. X-ray of the left foot showed no evidence of bony destruction/osteomyelitis. Patient denied cough or shortness of breath. He denied GI symptoms or diarrhea. His left foot surgery
site was inspected by podiatry and did not seem to need further debridement and recommended to continue wound care. Blood culture came back positive for Serratia, suspected pulmonary source. Patient was evaluated by ID doctor. He was started on
intravenous antibiotic. Repeat blood culture did not show any growth. Patient remained hemodynamically stable. No recurrent fever. ID doctor recommended to finish course with ciprofloxacin. Patient was evaluated by physical therapy and case
management. Patient was discharged back to finish [facility] [place] [facility].
Physical Exam
General: Not in acute distress, seems comfortable and requesting discharge back to rehab.
HEENT: Normocephalic
Respiratory: Clear to Auscultation Bilaterally
Cardiac: S1/S2 and Regular Rhythm
GI: Soft, Non Tender and Non Distended. Positive bowel sounds.
Extremities: Left foot TMA clean dressing, no erythema noted.
Skin: Warm, Dry
Neuro: AAO x 3
Psych: Calm
Total discharge time spent to see the patient, examine the patient, review data and lab result, discussed discharge plan with patient, manager case management, nursing staff around 65 minutes.
Discharge Plan
-
Patient Disposition: Acute Rehab Facility
Discharge Diagnosis/Procedures: Fever - resolved
Leukocytosis - resolved
Possible Pneumonia
Recent TMA of the L foot
-blood cultures x2 with serratia - suspected pulmonary source. c/w to ciprofloxacin 750 mg po BID x 4 more days
Condition: Good
Diet: As tolerated
Activity Restrictions/Additional Instructions:
Wound Care Instructions
L TMA incision site - L TMA incision site - rinse with saline if dressing stuck, Dakin's moist gauze (*to open area only), adaptic over sutures, gauze or ABD pads and kerlix. Change daily and prn drainage.
PWB to heel for transfers
Follow up with vascular and [facility] Supervisor
Referrals:
Jeremy Davis DPM [Active, Podiatry] - in one to two weeks
UNKNOWN - PT DOES,NOT KNOW [Family Provider]
Prescriptions:
New
ciprofloxacin HCl 250 mg Tablet
250 mg PO BID Qty: 7 0RF
ciprofloxacin HCl 500 mg Tablet
500 mg PO BID Qty: 7 0RF
Continued
gabapentin 300 mg capsule
300 mg PO TID
clopidogrel 75 mg Tablet
75 mg PO DAILY
midodrine 5 mg tablet
5 mg PO DAILY
digoxin 125 mcg (0.125 mg) tablet
125 mcg PO DAILY
duloxetine 60 mg capsule,delayed release(DR/EC)
60 mg PO DAILY
Eliquis 5 mg Tablet
5 mg PO BID
polyethylene glycol 3350 17 gram Powder In Packet
17 g PO DAILYPRN PRN (Reason: constipation) Qty: 30 0RF
metformin 1,000 mg Tablet
1,000 mg PO BID@0800,1700 Qty: 60 0RF
insulin aspart U-100 100 unit/mL (3 mL) Insulin Pen
14 unit SC DAILY@0800 Qty: 15 0RF
dapagliflozin propanediol 10 mg Tablet
10 mg PO DAILY Qty: 30 0RF
Insulin Glargine Lantus [Lantus] 56 UNITS
Subcutaneous Insulin Syringe [Syringe-Insulin] 0 UNIT
As Directed mls/hr SC DAILY
Ordered By: Leif Ortega MD
Last Taken: Unknown
insulin aspart U-100 100 unit/mL (3 mL) Insulin Pen
8 unit SC DAILY@1130,1730 Qty: 15 0RF
acetaminophen 325 mg Tablet
650 mg PO Q4HPRN PRN (Reason: mild pain/YAN/temp > 100.4F) Qty: 30 0RF
sennosides-docusate sodium [Senna Plus] 8.6-50 mg Tablet
1 tab PO BIDPRN PRN (Reason: constipation) Qty: 30 0RF
oxycodone 5 mg Tablet
5 mg PO Q4HPRN PRN (Reason: severe pain) Qty: 20 0RF
Held
atorvastatin [Lipitor] 80 mg tablet
80 mg PO HS
Hold Instructions: Resume on 06/08/25.
Rx Instructions:
Resume on 06/08/2025
Discharge Orders:
Discharge Patient (As Directed); Ordered 06/04/25
Ordered By: Nu Amos
Discharge Date and Time
Discharge Date/Time: 06/04/25 17:33
Print Language: PERUVIAN
== END 2025-06-04 17:33 | DRG 871 ==
LOC: 2 NORTH 05:26
PROVIDERS: Emergency Medicine; Hospitalist; ADMITTING PHYSICIAN Internal Medicine; ATTENDING PHYSICIAN Internal Medicine; CONSULT PHYSICIAN Student in an Organized Health Care Education/Training Program; EMERGENCY PHYSICIAN Emergency Medicine; OTHER PHYSICIAN Student in an Organized Health Care Education/Training Program
DX: A41.53 Sepsis due to Serratia (principal); J15.69 Pneumonia due to other Gram-negative bacteria; L03.116 Cellulitis of left lower limb; E87.1 Hypo-osmolality and hyponatremia; E11.51 Type 2 diabetes mellitus with diabetic peripheral angiopathy without gangrene; E11.69 Type 2 diabetes mellitus with other specified complication; I10 Essential (primary) hypertension; R79.82 Elevated C-reactive protein (CRP); I25.10 Atherosclerotic heart disease of native coronary artery without angina pectoris; I95.89 Other hypotension; E78.00 Pure hypercholesterolemia, unspecified; L89.151 Pressure ulcer of sacral region, stage 1; I48.91 Unspecified atrial fibrillation; R09.02 Hypoxemia; Z79.01 Long term (current) use of anticoagulants; Z79.84 Long term (current) use of oral hypoglycemic drugs; Z79.4 Long term (current) use of insulin; Z79.02 Long term (current) use of antithrombotics/antiplatelets; Z87.891 Personal history of nicotine dependence; I25.2 Old myocardial infarction; Z89.511 Acquired absence of right leg below knee; Z79.899 Other long term (current) drug therapy
CPT/HCPCS: 71046; 73630; 80048; 80053; 81003; 81015; 82962; 83605; 85025; 85027; 85652; 86140; 87040; 87070; 87077; 87086; 87154; 87186; 87205; 87502; 87811; 93005; 96365; 96375; 97163; 97167; 99291

== ENCOUNTER → 2025-09-13 12:49 | Outpatient (REF) | payer MEDICARE, SELFPAY | LOC: RAD 12:49 | PROVIDERS: ATTENDING PHYSICIAN Surgery Vascular Surgery; FAMILY PHYSICIAN Family Medicine | DX: I73.9 Peripheral vascular disease, unspecified (principal) | CPT/HCPCS: 93922; 93925 ==